=== PATIENT | male | born 1950 | race Caucasian/White ===

== ENCOUNTER → 2017-01-21 | Outpatient (CLI) | payer OTHER ==
[~2017-01-21] MED LIST: AMLO5CAP2 PO; ASPI81TA21 PO; CYAN10004 PO; GLC/500 PO; MCR125 PO; NAPR220T40 PO; OMEG-112 PO; OSTEO BI FLEX PO; PRAV20TA PO
[2017-01-21 11:03] LABS: BASO % 0.7 %; BASO ABS # 0.04 K/uL (0-0.2); COMPLETE YES; EOS % 4.2 %; HEMATOCRIT 44.7 % (42-52); IG% 0.2 %; LYMPH % 22.3 %; LYMPH ABS # 1.23 K/uL (1.2-3.4); MEAN CELL VOLUME 91.8 fL (80-100); MEAN CORPUSCULAR HEMOGLOBIN 31.4 pg (25-34); MEAN CORPUSCULAR HGB CONC 34.2 g/dl (32-36); MEAN PLATELET VOLUME 9.5 fL (7.4-10.4); MONO % 9.8 %; NEUT % 62.8 %; PLATELET COUNT 179 K/uL (130-400); RED BLOOD COUNT 4.87 M/uL (4.7-6.1); WHITE BLOOD COUNT 5.51 K/uL (4.8-10.8)
[2017-01-21 11:27] LABS: ALT/SGPT 27 U/L (12-78); AST/SGOT 17 U/L (15-37); BLOOD UREA NITROGEN 20 mg/dl (7-18); BUN/CREATININE RATIO 14.4 (10-20); CALCIUM 8.4 mg/dl (8.5-10.1); CARBON DIOXIDE 26 mmol/L (21-32); CHLORIDE 108 mmol/L (98-107); GLUCOSE 168 mg/dl (70-99); POTASSIUM 4.7 mmol/L (3.5-5.1); SODIUM 142 mmol/L (136-145)
[2017-01-21 11:28] LABS: ALB/GLOB RATIO 0.9 (0.9-2); ALKALINE PHOSPHATASE 57 U/L (45-117); CHOLESTEROL 136 mg/dl (0-200); CHOLESTEROL/HDL RATIO 3.4; HDL CHOLESTEROL 40 mg/dl; LDL CHOLESTEROL CALCULATED 69 mg/dl; TRIGLYCERIDES 134 mg/dl (0-150); VERY LOW DENSITY LIPOPROT CALC 27 mg/dl
[2017-01-21 12:00] LABS: ESTIMATED AVERAGE GLUCOSE 143 mg/dl; HA1C FLAG Normal (Normal)
--- NOTE | 2017-02-02 13:04 | CODING QUERY MEDICAL NECESSITY ---
SUPPORTING DIAGNOSIS NEEDED A supporting diagnosis is required for the test/procedure performed on this patient in order for us to be reimbursed by the patient's insurance. Please provide a supporting diagnosis for the following test/procedure listed below next to the test name along with your signature. *If there is no additional diagnosis for this patient that would support the following test/procedure please document that below next to the test/procedure. Test(s)/Procedure(s) that require a supporting diagnosis: * HEMOGLOBIN A1C DIAGNOSIS: Provider Signature: Date: Thank you Katrin Brennan [employer] Information Management Once completed, please kindly fax back to [phone] For questions please call [phone]
== END | disposition home or self-care (01) ==
LOC: C.LABBC 07:55
PROVIDERS: ATTEND Internal Medicine
DX: G47.33 Obstructive sleep apnea (adult) (pediatric) (principal); E11.9 Type 2 diabetes mellitus without complications

== ENCOUNTER → 2017-08-31 | Outpatient (CLI) | payer OTHER ==
[2017-08-31 12:25] LABS: BASO % 0.4 %; BASO ABS # 0.02 K/uL (0-0.2); EOS ABS # 0.09 K/uL (0-0.5); HEMATOCRIT 44.4 % (42-52); HEMOGLOBIN 15.6 g/dL (14.0-18.0); IG# 0.02 K/uL (0.00-0.02); LYMPH % 27.6 %; LYMPH ABS # 1.26 K/uL (1.2-3.4); MEAN CELL VOLUME 91.4 fL (80-100); MEAN CORPUSCULAR HEMOGLOBIN 32.1 pg (25-34); MEAN CORPUSCULAR HGB CONC 35.1 g/dl (32-36); MEAN PLATELET VOLUME 9.8 fL (7.4-10.4); MONO % 11.6 %; MONO ABS # 0.53 K/uL (0.11-0.59); NEUT ABS # 2.64 K/uL (1.4-6.5); PLATELET COUNT 171 K/uL (130-400); RED CELL DISTRIBUTION WIDTH CV 12.4 % (11.5-14.5); RED CELL DISTRIBUTION WIDTH SD 41.4 fL (36.4-46.3); WHITE BLOOD COUNT 4.56 K/uL (4.8-10.8)
[2017-08-31 12:33] LABS: HEMOGLOBIN A1C 7.8 % (4.5-5.6)
[2017-08-31 12:34] LABS: ALBUMIN 3.6 gm/dl (3.4-5.0); ALT/SGPT 30 U/L (12-78); BLOOD UREA NITROGEN 20 mg/dl (7-18); CALCIUM 8.8 mg/dl (8.5-10.1); CARBON DIOXIDE 27 mmol/L (21-32); CHOLESTEROL 106 mg/dl (0-200); CREATININE 1.32 mg/dl (0.60-1.40); GLUCOSE 191 mg/dl (70-99); POTASSIUM 4.3 mmol/L (3.5-5.1); SODIUM 138 mmol/L (136-145)
[2017-08-31 12:38] LABS: ALKALINE PHOSPHATASE 54 U/L (45-117); AST/SGOT 19 U/L (15-37); LDL CHOLESTEROL CALCULATED 54 mg/dl; TOTAL PROTEIN 7.6 gm/dl (6.4-8.2)
== END | disposition home or self-care (01) ==
LOC: C.LABPBG 09:32
PROVIDERS: ATTEND Internal Medicine
DX: G47.33 Obstructive sleep apnea (adult) (pediatric) (principal)

== ENCOUNTER → 2018-03-02 | Outpatient (CLI) | payer OTHER ==
[~2018-03-02] MED LIST changes: +ASPI-319 PO; -ASPI81TA21 PO
[2018-03-02 12:45] LABS: BASO % 0.7 %; BASO ABS # 0.04 K/uL (0-0.2); EOS % 1.7 %; HEMATOCRIT 45.1 % (42-52); HEMOGLOBIN 15.9 g/dL (14.0-18.0); IG# 0.02 K/uL (0.00-0.02); LYMPH ABS # 1.21 K/uL (1.2-3.4); MEAN CELL VOLUME 90.4 fL (80-100); MEAN CORPUSCULAR HEMOGLOBIN 31.9 pg (25-34); MEAN CORPUSCULAR HGB CONC 35.3 g/dl (32-36); MONO % 9.6 %; MONO ABS # 0.58 K/uL (0.11-0.59); NEUT % 67.7 %; NEUT ABS # 4.11 K/uL (1.4-6.5); PLATELET COUNT 184 K/uL (130-400); RED CELL DISTRIBUTION WIDTH CV 12.2 % (11.5-14.5); RED CELL DISTRIBUTION WIDTH SD 40.1 fL (36.4-46.3); WHITE BLOOD COUNT 6.06 K/uL (4.8-10.8)
[2018-03-02 13:06] LABS: ALKALINE PHOSPHATASE 66 U/L (45-117); ALT/SGPT 29 U/L (12-78); AST/SGOT 20 U/L (15-37); BLOOD UREA NITROGEN 24 mg/dl (7-18); CALCIUM 9.1 mg/dl (8.5-10.1); CARBON DIOXIDE 30 mmol/L (21-32); CHOLESTEROL 147 mg/dl (0-200); CREATININE 1.39 mg/dl (0.60-1.40); GLUCOSE 279 mg/dl (70-99); HEMOGLOBIN A1C 9.5 % (4.5-5.6); LDL CHOLESTEROL CALCULATED 70 mg/dl; POTASSIUM 4.6 mmol/L (3.5-5.1); SODIUM 133 mmol/L (136-145); TOTAL PROTEIN 8.1 gm/dl (6.4-8.2)
== END | disposition home or self-care (01) ==
LOC: C.LABPBG 09:47
PROVIDERS: ATTEND Internal Medicine
DX: I10 Essential (primary) hypertension (principal); E11.69 Type 2 diabetes mellitus with other specified complication; E78.5 Hyperlipidemia, unspecified

== ENCOUNTER 2018-10-21 19:51 | Inpatient (IN) ==
[2018-10-21] MEDS ORDERED: SODIUM CHLORIDE 0.9% 1000ML 1,000 ML IV ONE (21:38)
--- NOTE | 2018-10-21 21:54 | Emergency Department Note ---
History of Present Illness General Chief complaint: Constipation Stated complaint: CONSTIPATOIN History of Present Illness Maximum Pain Intensity: 2 This 68-year-old presents to the ER complaining of weakness, lightheadedness, and abdominal discomfort Location: Generalized Quality: Weak Severity: Moderate Duration: 1 week Timin week ago Context: Patient was concerned and came in Modifying factors: better with rest; worse with activity Patient has pancreatic cancer currently on chemotherapy once a week for 3 weeks and 1 week off. He last received chemo on Thursday. Dr. Combs is his oncologist. Patient was diagnosed yesterday with a DVT in the left leg and was started on Xarelto. Patient states he was told he had a high potassium last week. Patient also complains of being constipated with abdominal pain. No prior abdominal surgeries. Patient denies chest pain, dyspnea, fevers, vomiting, diarrhea. Patient states he feels quite weak and lightheaded. His blood pressure normally is 110/70 per patient. No history of PE. No prior heart disease. Home Medications Home Medications Medication Instructions Recorded Confirmed Type amlodipine-benazepril 1 cap PO QAM 04/20/18 10/21/18 History cyanocobalamin (vitamin B-12) 1,000 mcg PO QAM 07/14/18 10/21/18 History [Vitamin B-12] Basaglar KwikPen U-100 Insulin 8 units SUBCUT HS 07/20/18 10/21/18 History insulin aspart U-100 [Novolog 0 unit SUBCUT TIDM PRN 07/22/18 10/21/18 History Flexpen U-100 Insulin] aspirin [Aspir-81] 81 mg PO QAM 08/29/18 10/21/18 History docusate sodium [Colace] 100 mg PO QAM 08/29/18 10/21/18 History ondansetron HCl [Zofran] 8 mg PO QAM 08/29/18 10/21/18 History oxycodone 10 mg PO Q4 PRN 08/29/18 10/21/18 History prochlorperazine maleate 10 mg PO Q6H PRN 08/29/18 10/21/18 History [Compazine] rivaroxaban [Xarelto] 15 mg PO BID 10/21/18 10/21/18 History rivaroxaban [Xarelto] 20 mg PO DAILY 10/21/18 10/21/18 History Allergies Allergy/AdvReac Type Severity Reaction Status Date / Time No Known Allergies Allergy Verified 10/21/18 21:22 Past Med/Surg History Medical History Constipation Acute kidney injury Hyperglycemia due to type 2 diabetes mellitus Hospital-acquired pneumonia Abdominal pain Sepsis (Acute) Leukocytosis (Acute) Lactic acidosis (Acute) DVT prophylaxis Diabetes mellitus HTN (hypertension) Pancreatic cancer Common bile duct obstruction secondary to biliary stent Colon cancer screening Elevated LFTs Epigastric abdominal pain DVT prophylaxis Choledocholithiasis (Acute) Epigastric abdominal pain (Acute) Encounter for pre-operative examination Corneal abrasion of both eyes Acute pancreatitis Pancreatic cancer metastasized to liver Hyperlipidemia Essential hypertension DM w/o complication type II GRICELDA (obstructive sleep apnea) Acute urinary retention (Inactive) Constipation (Inactive) Dysphagia (Inactive) Epigastric abdominal pain (Inactive) Hypoglycemia (Inactive) Neutropenia (Inactive) Pancreatic cancer (Inactive) Basal cell carcinoma (BCC) of forehead S/P EXCISION Constipation Diabetes mellitus, type 2 History of pancreatitis RECENT; 07/2018 FELT 2/2 CBD/PANCREATIC DUCT STRICTURES PER [facility] NOTE- SURGEON AWARE Hyperlipidemia Hypertension Osteoarthritis Pancreatic cancer WITH LIVER METS Peripheral neuropathy left leg -sore to touch; no difficulty walking Sleep apnea CPAP 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 S/P MOHS PROCEDURE Surgical History H/O Moh's micrographic surgery for skin cancer H/O carpal tunnel repair B/L History of ERCP ERCP WITH BILIARY STENT PLACEMENT/EUS/SPHINCTEROTOMY= 07/14/18= GRADE VIEW 1, MAC 3, ETT 7.5 AT [facility] History of colonoscopy History of tonsillectomy History of tooth extraction WISDOM TEETH Family History Mother Gastric cancer Brother Gastric cancer Social History Preferred Language: [place] Communication Ability: Effective 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 Beliefs That Will Affect Care: None marital status: Current Living Situation: Spouse Current Living Situation Comment: House current occupational status: retired 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[employer], was also previously in the [employer] Other Information That Helps Us Care for You: No Feels Safe at Home: Yes Safety Concerns: Feels Safe At This Time Smoking Status: Never smoker Hx Alcohol Use: No Hx Substance Use: No Review of Systems All systems reviewed & are unremarkable except as noted in HPI & below Physical Exam Vital Signs Vital Signs - 24 hr 10/21/18 20:11 10/21/18 23:19 10/22/18 00:34 Temperature 37.3 C Temperature Source Oral Sepsis Recent Fever Within 48 Hours No Sepsis Action Taken by Nursing No Action Required Pulse Rate 113 H Pulse Rate [Left Radial] 99 H 90 Pulse Rhythm [Left Radial] Pulse Strength [Left Radial] Respiratory Rate 18 18 18 Respiratory Effort / Characteristics Non-Labored Spontaneous Respiratory Depth Normal Respiratory Pattern Blood Pressure 91/56 L Blood Pressure [Left Arm] 104/60 117/59 L Blood Pressure Mean 67 Blood Pressure Mean [Left Arm] 74 78 Blood Pressure Position [Left Arm] Lying Pulse Oximetry 97 95 Oxygen Delivery Method Room Air 10/22/18 02:54 Temperature 36.5 C Temperature Source Oral Sepsis Recent Fever Within 48 Hours Sepsis Action Taken by Nursing Pulse Rate Pulse Rate [Left Radial] 95 H Pulse Rhythm [Left Radial] Regular Pulse Strength [Left Radial] Normal Respiratory Rate 18 Respiratory Effort / Characteristics Non-Labored Spontaneous Respiratory Depth Normal Respiratory Pattern Regular Blood Pressure Blood Pressure [Left Arm] 118/71 Blood Pressure Mean Blood Pressure Mean [Left Arm] 86 Blood Pressure Position [Left Arm] Lying Pulse Oximetry 95 Oxygen Delivery Method Room Air CPAP VITALS: Vitals are noted on the nurse's note and reviewed by myself. Vital signs hypotensive and tachycardic. GENERAL: Elderly male weak appearing, in mild acute distress, nondiaphoretic, well-developed well-nourished. SKIN: The skin was without rashes, erythema, or bruising. Left calf slightly edematous. There is no tenting of the skin. Capillary reflex less than 2 seconds. HEAD: Normocephalic atraumatic. EARS: External auditory canals clear, tympanic membranes pearly matt without erythema or effusion bilaterally. EYES: Pupils equal round and reactive to light and accommodation. Conjunctivae without injection, sclerae without icterus. Extraocular movements intact. NOSE: Patent, turbinates without inflammation or discharge. No sinus tenderness. MOUTH: Mucous membranes mildly dry. Pharynx without erythema or exudate. Uvula midline. Airway patent. Tongue does not deviate. NECK: Supple without nuchal rigidity. No lymphadenopathy. No thyromegaly. Cervical spine is nontender. No JVD. HEART: Regular rate and rhythm LUNGS: Clear to auscultation bilaterally without wheezes, rales or rhonchi. No retractions or accessory muscle use. ABDOMEN: Positive bowel sounds x 4. Normal tympanic percussion. Soft, tender to palpation lower abdomen, without masses or organomegaly. Fields sign negati ve. No guarding or rebound tenderness. No CVA tenderness MUSCULOSKELETAL: No muscle atrophy, erythema noted. left calf slightly edematous. Pedal pulses +2 equal and present bilaterally. NEURO: Patient was alert and oriented to person place and time. Normal sensation to light and sharp touch. No focal neurological deficits. Course Administered Medications Sodium Chloride (Nss 1000ml) 1,000 mls @ 80 mls/hr IV .[id number] VALERIA Stop: 11/21/18 02:59 Last Admin: 10/22/18 02:51 Dose: 80 mls/hr Documented by: [id number] Discontinued Medications Sodium Chloride (Nss 1000ml) 1,000 mls @ 999 mls/hr IV .[id number] ONE Stop: 10/21/18 22:38 Last Infusion: 10/21/18 23:14 Dose: 0 mls/hr Documented by: [id number] Admin: 10/21/18 21:59 Dose: 999 mls/hr Documented by: [id number] Ioversol (Optiray 320 100ml) 90 ml IV ONCE PRN PRN Reason: Interaction Checking Stop: 10/25/18 22:15 Last Admin: 10/21/18 22:17 Dose: 90 ml Documented by: [id number] Medical Decision Making Medical Records Attestation: I reviewed the patient's medical records. Home Medications Current Medication List: was personally reviewed by me Laboratory Data Attestation: I reviewed the patient's lab results. Result diagrams: 10/21/18 21:57 10/22/18 02:59 Lab Results 10/21/18 10/21/18 10/21/18 Range/Units 21:46 21:50 21:57 WBC 4.17 L (4.8-10.8) K/uL RBC 2.89 L (4.7-6.1) M/uL Hgb 9.0 L (14.0-18.0) g/dL POC Hgb 9.2 L (14.0-18.0) g/dl Hct 26.8 L (42-52) % POC Hct 27 L (42-52) % MCV 92.7 (80-100) fL MCH 31.1 (25-34) pg MCHC 33.6 (32-36) g/dL RDW Std Deviation 53.8 H (36.4-46.3) fL RDW Coeff of Darron 16.1 H (11.5-14.5) % Plt Count 152 (130-400) K/uL MPV 9.0 (7.4-10.4) fL Immature Gran % (Auto) 1.7 % Neut % (Auto) 91.1 % Lymph % (Auto) 6.0 % [place] % (Auto) 1.2 % Eos % (Auto) 0.0 % Baso % (Auto) 0.0 % Immature Gran # (Auto) 0.07 H (0.00-0.02) K/uL Neut # (Auto) 3.80 (1.4-6.5) K/uL Lymph # (Auto) 0.25 L (1.2-3.4) K/uL [place] # (Auto) 0.05 L (0.11-0.59) K/uL Eos # (Auto) 0.00 (0-0.5) K/uL Baso # (Auto) 0.00 (0-0.2) K/uL PT (9.0-12.0) Seconds INR (0.9-1.1) APTT (21.0-31.0) Seconds PTT Ratio POC Sodium 134 L (135-144) mEq/L Sodium (136-145) mmol/L POC Potassium 5.0 (3.3-5.0) mEq/L Potassium (3.5-5.1) mmol/L POC Chloride 98 L (101-112) mEq/L Chloride (98-107) mmol/L Carbon Dioxide (21-32) mmol/L POC Total CO2 25 (24-31) mEq/l Anion Gap (3-11) POC Anion Gap 17.0 (16-25) mmol/L POC BUN 40 H (7-18) mg/dl BUN (7-18) mg/dl Creatinine (0.6-1.4) mg/dl POC Creatinine 1.3 (0.6-1.3) mg/dl Est Cr Clr Drug Dosing ml/min Est GFR ( Amer) Est GFR (Non-Af Amer) BUN/Creatinine Ratio (10-20) Glucose (70-99) mg/dl POC Glucose (70-99) POC Glucose (other) 240 H (70-99) mg/dl POC Lactic Acid Saurabh 1.77 H (0.90-1.70) mmol/L Calcium (8.5-10.1) mg/dl POC Ioniz Calcium Anuja 1.10 L (1.12-1.32) mmol/l Phosphorus (2.5-4.9) mg/dl Magnesium (1.8-2.4) mg/dl Total Bilirubin (0.2-1) mg/dl AST (15-37) U/L ALT (12-78) U/L Alkaline Phosphatase (45-117) U/L POC Troponin I (0-0.045) ng/ml Troponin I (0-0.045) ng/ml Total Protein (6.4-8.2) gm/dl Albumin (3.4-5.0) gm/dl Globulin (2.5-4.0) gm/dl Albumin/Globulin Ratio (0.9-2) Urine Color Urine Appearance (Clear) Urine pH (4.5-7.5) Ur Specific [place] (1.000-1.030) Urine Protein (Negative) Urine Glucose (UA) (Negative) Urine Ketones (Negative) Urine Blood (Negative) Urine Nitrite (Negative) Urine Bilirubin (Negative) Urine Urobilinogen (Negative) Ur Leukocyte Esterase (Negative) Urine WBC (Auto) (0-5) /hpf Urine RBC (Auto) (0-4) /hpf U Hyaline Cast (Auto) (0-5) /lpf U Epithel Cells (Auto) (0-5) /lpf Urine Bacteria (Auto) (Negative) 10/21/18 10/21/18 10/21/18 Range/Units 21:57 21:57 22:01 WBC (4.8-10.8) K/uL RBC (4.7-6.1) M/uL Hgb (14.0-18.0) g/dL POC Hgb (14.0-18.0) g/dl Hct (42-52) % POC Hct (42-52) % MCV (80-100) fL MCH (25-34) pg MCHC (32-36) g/dL RDW Std Deviation (36.4-46.3) fL RDW Coeff of Darron (11.5-14.5) % Plt Count (130-400) K/uL MPV (7.4-10.4) fL Immature Gran % (Auto) % Neut % (Auto) % Lymph % (Auto) % [place] % (Auto) % Eos % (Auto) % Baso % (Auto) % Immature Gran # (Auto) (0.00-0.02) K/uL Neut # (Auto) (1.4-6.5) K/uL Lymph # (Auto) (1.2-3.4) K/uL [place] # (Auto) (0.11-0.59) K/uL Eos # (Auto) (0-0.5) K/uL Baso # (Auto) (0-0.2) K/uL PT 13.2 H (9.0-12.0) Seconds INR 1.3 H (0.9-1.1) APTT 35.3 H (21.0-31.0) Seconds PTT Ratio 1.3 POC Sodium (135-144) mEq/L Sodium 137 (136-145) mmol/L POC Potassium (3.3-5.0) mEq/L Potassium 5.0 (3.5-5.1) mmol/L POC Chloride (101-112) mEq/L Chloride 102 (98-107) mmol/L Carbon Dioxide 29 (21-32) mmol/L POC Total CO2 (24-31) mEq/l Anion Gap 6.0 (3-11) POC Anion Gap (16-25) mmol/L POC BUN (7-18) mg/dl BUN 47 H (7-18) mg/dl Creatinine 1.43 H (0.6-1.4) mg/dl POC Creatinine (0.6-1.3) mg/dl Est Cr Clr Drug Dosing 44.9 ml/min Est GFR ( Amer) 57.1 Est GFR (Non-Af Amer) 49.3 BUN/Creatinine Ratio 32.7 H (10-20) Glucose 232 H (70-99) mg/dl POC Glucose (70-99) POC Glucose (other) (70-99) mg/dl POC Lactic Acid Saurabh (0.90-1.70) mmol/L Calcium 8.3 L (8.5-10.1) mg/dl POC Ioniz Calcium Anuja (1.12-1.32) mmol/l Phosphorus (2.5-4.9) mg/dl Magnesium (1.8-2.4) mg/dl Total Bilirubin 0.6 (0.2-1) mg/dl AST 12 L (15-37) U/L ALT 20 (12-78) U/L Alkaline Phosphatase 75 (45-117) U/L POC Troponin I < 0.03 (0-0.045) ng/ml Troponin I < 0.015 (0-0.045) ng/ml Total Protein 6.5 (6.4-8.2) gm/dl Albumin 2.4 L (3.4-5.0) gm/dl Globulin 4.1 H (2.5-4.0) gm/dl Albumin/Globulin Ratio 0.6 L (0.9-2) Urine Color Urine Appearance (Clear) Urine pH (4.5-7.5) Ur Specific [place] (1.000-1.030) Urine Protein (Negative) Urine Glucose (UA) (Negative) Urine Ketones (Negative) Urine Blood (Negative) Urine Nitrite (Negative) Urine Bilirubin (Negative) Urine Urobilinogen (Negative) Ur Leukocyte Esterase (Negative) Urine WBC (Auto) (0-5) /hpf Urine RBC (Auto) (0-4) /hpf U Hyaline Cast (Auto) (0-5) /lpf U Epithel Cells (Auto) (0-5) /lpf Urine Bacteria (Auto) (Negative) 10/21/18 10/22/18 10/22/18 Range/Units 23:01 02:59 03:15 WBC (4.8-10.8) K/uL RBC (4.7-6.1) M/uL Hgb (14.0-18.0) g/dL POC Hgb (14.0-18.0) g/dl Hct (42-52) % POC Hct (42-52) % MCV (80-100) fL MCH (25-34) pg MCHC (32-36) g/dL RDW Std Deviation (36.4-46.3) fL RDW Coeff of Darron (11.5-14.5) % Plt Count (130-400) K/uL MPV (7.4-10.4) fL Immature Gran % (Auto) % Neut % (Auto) % Lymph % (Auto) % [place] % (Auto) % Eos % (Auto) % Baso % (Auto) % Immature Gran # (Auto) (0.00-0.02) K/uL Neut # (Auto) (1.4-6.5) K/uL Lymph # (Auto) (1.2-3.4) K/uL [place] # (Auto) (0.11-0.59) K/uL Eos # (Auto) (0-0.5) K/uL Baso # (Auto) (0-0.2) K/uL PT (9.0-12.0) Seconds INR (0.9-1.1) APTT (21.0-31.0) Seconds PTT Ratio POC Sodium (135-144) mEq/L Sodium 136 (136-145) mmol/L POC Potassium (3.3-5.0) mEq/L Potassium 4.7 (3.5-5.1) mmol/L POC Chloride (101-112) mEq/L Chloride 104 (98-107) mmol/L Carbon Dioxide 26 (21-32) mmol/L POC Total CO2 (24-31) mEq/l Anion Gap 6.0 (3-11) POC Anion Gap (16-25) mmol/L POC BUN (7-18) mg/dl BUN 40 H (7-18) mg/dl Creatinine 1.12 D (0.6-1.4) mg/dl POC Creatinine (0.6-1.3) mg/dl Est Cr Clr Drug Dosing 57.4 ml/min Est GFR ( Amer) 76.7 Est GFR (Non-Af Amer) 66.2 BUN/Creatinine Ratio 35.8 H (10-20) Glucose 277 H (70-99) mg/dl POC Glucose 321 H (70-99) POC Glucose (other) (70-99) mg/dl POC Lactic Acid Saurabh (0.90-1.70) mmol/L Calcium 7.3 L (8.5-10.1) mg/dl POC Ioniz Calcium Anuja (1.12-1.32) mmol/l Phosphorus 3.5 (2.5-4.9) mg/dl Magnesium 2.2 (1.8-2.4) mg/dl Total Bilirubin (0.2-1) mg/dl AST (15-37) U/L ALT (12-78) U/L Alkaline Phosphatase (45-117) U/L POC Troponin I (0-0.045) ng/ml Troponin I (0-0.045) ng/ml Total Protein (6.4-8.2) gm/dl Albumin (3.4-5.0) gm/dl Globulin (2.5-4.0) gm/dl Albumin/Globulin Ratio (0.9-2) Urine Color Yellow Urine Appearance Clear (Clear) Urine pH 5.0 (4.5-7.5) Ur Specific [place] 1.019 (1.000-1.030) Urine Protein Negative (Negative) Urine Glucose (UA) 1+ H (Negative) Urine Ketones Negative (Negative) Urine Blood 1+ H (Negative) Urine Nitrite Negative (Negative) Urine Bilirubin Negative (Negative) Urine Urobilinogen Negative (Negative) Ur Leukocyte Esterase Negative (Negative) Urine WBC (Auto) 0 (0-5) /hpf Urine RBC (Auto) 0-4 (0-4) /hpf U Hyaline Cast (Auto) 1-5 (0-5) /lpf U Epithel Cells (Auto) 5-10 H (0-5) /lpf Urine Bacteria (Auto) Negative (Negative) Imaging Data Attestation: I personally reviewed and interpreted this imaging study as follows: Blood Pressure Blood Pressure Findings: Low blood pressure MDM Narrative Prior records/ancillary studies reviewed and summarized above. Nursing notes reviewed. Additional history obtained from family The patient's history was concerning for weakness, lightheadedness, abdominal pain. Differential diagnosis: Etiologies such as metabolic, infection, hypo/hyperglycemia, electrolyte abnormalities, cardiac sources, intracerebral event, toxicologic, neurologic, as well as others were entertained. Physical examination: As above. ER treatment provided: IV Lock x2 was immediately initiated IV fluids, 1 L bolus. Blood pressure did improve On reassessment the patient felt better. Diagnostics interpretation by me: ECG: Normal sinus, incomplete right bundle branch block, no acute ST-T wave changes, rate of 100. impression incomplete right bundle branch block interpreted by myself. I think arrhythmia is unlikely. EKG shows normal sinus rhythm with no interval abnormalities such as QT prolongation or WPW. There are no findings to suggest Brugada syndrome. Cardiac monitoring in the emergency department reveals no tachycardic or bradycardic dysrhythmia. Hypertrophic cardiomyopathy was cons idered but there are no clear historical elements pointing toward this. EKG is not suggestive. The QRS voltage is not extremely large and there are no suggestive Q waves. The labs revealed negative urine Anemia. Stable creatinine. Hyperglycemia. Elevated lactic. Imaging studies: CT SCAN OF THE ABDOMEN AND PELVIS WITH IV CONTRAST CLINICAL HISTORY: Generalized abdominal pain. Pancreatic cancer. COMPARISON STUDY: Abdominal CT dated 07/22/2018. TECHNIQUE: Following the IV administration of 90 cc of Optiray 320, CT scan of the abdomen and pelvis is performed from the lung bases to the proximal femora. Images are reviewed in the axial, sagittal, and coronal planes. IV contrast was administered without complication. A dose lowering technique was utilized adhering to the principles of ALARA. CT DOSE: 500.99 mGy.cm FINDINGS: Lung bases: The tip of a central venous infusion port terminates at the cavoatrial junction. The heart is normal in size and without pericardial effu magi. The coronary arteries are densely calcified. There is a small hiatal hernia. There is no airspace consolidation or pleural effusion. Bibasilar scarring/atelectasis is noted. There are scattered calcified granulomas. Small calcified pleural plaques are noted. Liver: The contrast-enhanced liver is normal in size, contour, and attenuation. There is minimal central intrahepatic biliary ductal dilatation and pneumobilia. The hepatic veins and portal veins are patent. A 1.3 cm low-attenuation lesion is again seen in segment Aletha on image #51, and a lesion in segment IVb is seen on image #95 measuring 1.8 cm. No new hepatic lesion is clearly seen. There are scattered calcified hepatic granulomas. Gallbladder: The gallbladder is mildly distended. The gallbladder wall is mildly thickened and hyperemic. Intraluminal gas is noted and there is mild stranding identified around the hepatic hilum. A stent in the common bile duct contains intraluminal gas and is presumed patent. Spleen: Normal in size and attenuation. There are numerous calcified splenic granulomas. 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 Pancreas: The pancreas is markedly atrophic. The pancreatic duct is dilated, measuring up to 7 mm in the pancreatic tail. Scattered subcentimeter cystic foci are again noted and likely represent tiny sidebranch IPMN's. The pancreatic head is heterogeneous. No well delineated mass lesion is seen. Adrenal glands: Unremarkable. Kidneys: The contrast enhanced kidneys are atrophic. There is moderate to severe bilateral hydronephrosis, likely related to marked bladder distention. 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 The kidneys enhance symmetrically. A circumaortic left renal vein is incidentally noted. Nonobstructing calculi are seen in the lower pole of the right kidney. Cortical hypodensities measuring up to 11 mm likely represent cysts but are too small for definitive characterization. Foci of cortical scarring are seen in the right lower pole. Abdominal vasculature: The abdominal aorta is normal in course and caliber noting advanced atherosclerotic calcification. Bowel: There is colonic fecal retention. No bowel obstruction is seen. The appendix is well-visualized and normal. Peritoneum: There is no intraperitoneal free air or abdominal ascites. Lymphadenopathy: None. Pelvic viscera: The bladder is markedly distended, measuring 26 cm in length but otherwise grossly unremarkable. The prostate gland is diminutive. Skeletal structures: The skeletal structures are osteopenic. Lumbosacral spondylosis is observed. No lytic or blastic lesions are seen. IMPRESSION: 1. The bladder is markedly distended, measuring over 26 cm in length. The appear ance indicates bladder obstruction. 2. There is moderate to severe bilateral hydroureteronephrosis, likely related to the markedly distended bladder. 3. A common bile duct stent is in place. Gas within the stent and pneumobilia indicates patency of the stent. 4. The gallbladder is distended and contains intraluminal gas. The gallbladder wall appears mildly thickened and hyperemic and there is mild stranding around the gallbladder and in the hepatic hilum. These findings are likely related to the presence of the common bile duct stent. Acute cholecystitis is considered less likely and clinical correlation will be required. 5. The pancreas is atrophic. There is significant heterogeneity of the pancreatic head, with no well delineated mass lesion seen. 6. There are 2 low attenuation hepatic lesions, similar to previous. These are pathologically indeterminant and metastatic deposits are not excluded. 7. Right-sided nephrolithiasis. 8. Additional findings as above. Electronically signed by: Pritesh Mercado M.D. Consultation: A consultation was placed with the hospitalist. The case was discussed and diagnostics were reviewed. The patient was evaluated in the ER for further t reatment. Exam and history seem consistent with hypotension with urinary retention. Ugarte was placed and patient felt much better. Urine was sent. Patient is agreeable treatment plan of admission. Patient's blood pressure did improve with hydration. He was reassessed multiple times. He had great improvement. Lactic acid was marginally elevated. No leukocytosis. Chronic anemia. By the evaluation outlined above emergent etiologies such as infection, electrolyte abnormalities, cardiac sources, intracerebral event, toxologic, neurologic, metabolic, as well as others were deemed relatively unlikely. The pt informed about the findings as listed above. All questions were answered and pleased with the treatment. Case reviewed with my attending The chart was completed utilizing [employer] Speech voice recognition software. Grammatical errors, random word insertions, pronoun errors, and incomplete sentences are an occassional consequence of this system due to software li mitations, ambient noise, and hardware issues. Any formal questions or concerns about the content, text, or information contained within the body of this dictation should be directly addressed to the physician casino assistant manager for clarification. Impression & Plan Acute hypotension, Acute urinary retention, Acute hyperglycemia Discharge Plan Visit Data *Final* Discharge Date/Time: 10/22/18 02:23 Chief Complaint: Constipation Stated Complaint: CONSTIPATOIN ED Provider: Aly Mullins ED Midlevel Provider: Ana María Adame Discharge Problem: Acute hypotension, Acute urinary retention, Acute hyperglycemia Patient Disposition: Admitted As Inpatient Condition: Fair Discharge Instructions Interventions: ED Discharge Assessment Last Done: 10/22/18 02:23
[2018-10-21 22:04] LABS: iSTAT Creatinine 1.3 mg/dl (0.6-1.3); iSTAT Hemoglobin 9.2 g/dl (14.0-18.0); iSTAT Ionized Calcium 1.1 mmol/l (1.12-1.32)
[2018-10-21 22:05] LABS: Hematocrit (blood only) 26.8 % (42-52); Immature Granulocytes # (auto) 0.07 K/uL (0.00-0.02); Immature Granulocytes % (auto) 1.7 %; Lymphocytes # (auto) 0.25 K/uL (1.2-3.4); Mean Corpuscular Hgb Conc 33.6 g/dL (32-36); Mean Corpuscular Volume 92.7 fL (80-100); Monocytes # (auto) 0.05 K/uL (0.11-0.59); Monocytes % (auto) 1.2 %; Neutrophils % (auto) 91.1 %; Platelet Count 152 K/uL (130-400); RDW Coefficient of Variation 16.1 % (11.5-14.5); RDW Standard Deviation 53.8 fL (36.4-46.3); Red Blood Count 2.89 M/uL (4.7-6.1); White Blood Count 4.17 K/uL (4.8-10.8)
[2018-10-21] MEDS ORDERED: IOVERSOL 100ml IV PRN (22:16)
[2018-10-21 22:21] LABS: Alanine Aminotransferase 20 U/L (12-78); Albumin Level 2.4 gm/dl (3.4-5.0); Aspartate Aminotransferase 12 U/L (15-37); BUN Creatinine Ratio 32.7 (10-20); Blood Urea Nitrogen 47 mg/dl (7-18); Calcium 8.3 mg/dl (8.5-10.1); Carbon Dioxide 29 mmol/L (21-32); Chloride 102 mmol/L (98-107); Creatinine Clr Calc Pharmacy 44.9 ml/min; Est GFR (African American) 57.1; Est GFR (Non-African American) 49.3; Glucose 232 mg/dl (70-99); Sodium 137 mmol/L (136-145)
--- NOTE | 2018-10-21 22:23 | XRay Report ---
SINGLE VIEW CHEST CLINICAL HISTORY: Sepsis. FINDINGS: An AP, portable, upright chest radiograph is compared to study dated 09/30/2018 and correlat ed with chest CT dated 07/16/2018. The examination is degraded by portable technique and patient rotat ion. A right-sided central venous infusion port is unchanged in position. The cardiomediastinal silho uette is unremarkable, noting atherosclerotic calcification of the thoracic aorta. There is bibasilar scarring/atelectasis. No airspace consolidation or large pleural effusion is identified. No pneumoth orax is seen. The skeletal structures are osteopenic. The bony thorax is grossly intact. IMPRESSION: No active disease in the chest. Electronically signed by: Pritesh Mercado M.D. 10/21/2018 10:22 PM
[2018-10-21 22:25] LABS: Albumin Globulin Ratio 0.6 (0.9-2); Alkaline Phosphatase 75 U/L (45-117); Bilirubin,Total 0.6 mg/dl (0.2-1); Globulin 4.1 gm/dl (2.5-4.0); Total Protein 6.5 gm/dl (6.4-8.2); Troponin I < 0.015 ng/ml (0-0.045)
[2018-10-21 22:27] LABS: INR 1.3 (0.9-1.1); Partial Thromboplastin Ratio 1.3; Partial Thromboplastin Time 35.3 Seconds (21.0-31.0); Prothrombin Time 13.2 Seconds (9.0-12.0)
--- NOTE | 2018-10-21 22:41 | CT Scan Report ---
CT SCAN OF THE ABDOMEN AND PELVIS WITH IV CONTRAST CLINICAL HISTORY: Generalized abdominal pain. Pancreatic cancer. COMPARISON STUDY: Abdominal CT dated 07/22/2018. TECHNIQUE: Following the IV administration of 90 cc of Optiray 320, CT scan of the abdomen and pelvi s is performed from the lung bases to the proximal femora. Images are reviewed in the axial, sagittal , and coronal planes. IV contrast was administered without complication. A dose lowering technique wa s utilized adhering to the principles of ALARA. CT DOSE: 500.99 mGy.cm FINDINGS: Lung bases: The tip of a central venous infusion port terminates at the cavoatrial junction. The hear t is normal in size and without pericardial effusion. The coronary arteries are densely calcified. Th ere is a small hiatal hernia. There is no airspace consolidation or pleural effusion. Bibasilar scarr ing/atelectasis is noted. There are scattered calcified granulomas. Small calcified pleural plaques a re noted. Liver: The contrast-enhanced liver is normal in size, contour, and attenuation. There is minimal cent ral intrahepatic biliary ductal dilatation and pneumobilia. The hepatic veins and portal veins are pa tent. A 1.3 cm low-attenuation lesion is again seen in segment Aletha on image #51, and a lesion in segm ent IVb is seen on image #95 measuring 1.8 cm. No new hepatic lesion is clearly seen. There are scatt ered calcified hepatic granulomas. Gallbladder: The gallbladder is mildly distended. The gallbladder wall is mildly thickened and hypere mart. Intraluminal gas is noted and there is mild stranding identified around the hepatic hilum. A minh nt in the common bile duct contains intraluminal gas and is presumed patent. Spleen: Normal in size and attenuation. There are numerous calcified splenic granulomas. 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 Pancreas: The pancreas is markedly atrophic. The pancreatic duct is dilated, measuring up to 7 mm in the pancreatic tail. Scattered subcentimeter cystic foci are again noted and likely represent tiny si debranch IPMN's. The pancreatic head is heterogeneous. No well delineated mass lesion is seen. Adrenal glands: Unremarkable. Kidneys: The contrast enhanced kidneys are atrophic. There is moderate to severe bilateral hydronephr osis, likely related to marked bladder distention. 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 The kidneys enhance symmetrically. A circumaort ic left renal vein is incidentally noted. Nonobstructing calculi are seen in the lower pole of the ri ght kidney. Cortical hypodensities measuring up to 11 mm likely represent cysts but are too small for definitive characterization. Foci of cortical scarring are seen in the right lower pole. Abdominal vasculature: The abdominal aorta is normal in course and caliber noting advanced atheroscle rotic calcification. Bowel: There is colonic fecal retention. No bowel obstruction is seen. The appendix is well-visualiz ed and normal. Peritoneum: There is no intraperitoneal free air or abdominal ascites. Lymphadenopathy: None. Pelvic viscera: The bladder is markedly distended, measuring 26 cm in length but otherwise grossly un remarkable. The prostate gland is diminutive. Skeletal structures: The skeletal structures are osteopenic. Lumbosacral spondylosis is observed. No lytic or blastic lesions are seen. IMPRESSION: 1. The bladder is markedly distended, measuring over 26 cm in length. The appearance indicates bladde r obstruction. 2. There is moderate to severe bilateral hydroureteronephrosis, likely related to the markedly disten ded bladder. 3. A common bile duct stent is in place. Gas within the stent and pneumobilia indicates patency of th e stent. 4. The gallbladder is distended and contains intraluminal gas. The gallbladder wall appears mildly th ickened and hyperemic and there is mild stranding around the gallbladder and in the hepatic hilum. Th heather findings are likely related to the presence of the common bile duct stent. Acute cholecystitis is considered less likely and clinical correlation will be required. 5. The pancreas is atrophic. There is significant heterogeneity of the pancreatic head, with no well delineated mass lesion seen. 6. There are 2 low attenuation hepatic lesions, similar to previous. These are pathologically indeter minant and metastatic deposits are not excluded. 7. Right-sided nephrolithiasis. 8. Additional findings as above. Electronically signed by: Pritesh Mercado M.D. 10/21/2018 10:39 PM
[2018-10-21 23:35] LABS: Appearance Urine Clear (Clear); Bacteria Urine Automated Negative (Negative); Bilirubin Urine Negative (Negative); Blood Urine 1+ (Negative); Color Urine Yellow; Glucose Urine UA 1+ (Negative); Ketones Urine Negative (Negative); Leukocyte Esterase Urine Negative (Negative); Nitrite Urine Negative (Negative); Protein Urine Negative (Negative); RBC Urine Automated 0-4 /hpf (0-4); Specific Gravity Urine 1.019 (1.000-1.030); Urobilinogen Urine Negative (Negative); WBC Urine Automated 0 /hpf (0-5)
--- NOTE | 2018-10-21 23:49 | Emergency Department Note ---
ED Visit Note The patient was seen and examined with Nhi Adame PA-C. I agree with the history, physical and findings. Please see the note for disposition and details. .
[2018-10-22] MEDS ORDERED: PROCHLORPERAZINE MALEATE 10 MG TAB PO PRN (02:47)
[2018-10-22] MEDS ORDERED: GLUCOSE 10 TABS/TUBE PO PRN (02:47)
[2018-10-22] MEDS ORDERED: BISACODYL 10 MG SUPP PR PRN (02:47)
[2018-10-22] MEDS ORDERED: GLUCOSE 40% GEL 15 GM TUBE PO PRN (02:47)
[2018-10-22] MEDS ORDERED: CARBOHYDRATES FOR HYPOGLYCEMIA PO PRN (02:47)
[2018-10-22] MEDS ORDERED: DEXTROSE 50% 50 ML SYRINGE IV PRN (02:47)
[2018-10-22] MEDS ORDERED: GLUCAGON FOR INJ 1 MG VIAL SQ PRN (02:47)
[2018-10-22] MEDS: SODIUM CHLORIDE 0.9% 1000ML 1,000 ML IV SCH ×2 (02:51→14:57)
[2018-10-22 03:35] LABS: BUN Creatinine Ratio 35.8 (10-20); Calcium 7.3 mg/dl (8.5-10.1); Creatinine Clr Calc Pharmacy 57.4 ml/min; Est GFR (African American) 76.7; Est GFR (Non-African American) 66.2; Magnesium 2.2 mg/dl (1.8-2.4); Phosphorus 3.5 mg/dl (2.5-4.9); Potassium 4.7 mmol/L (3.5-5.1)
--- NOTE | 2018-10-22 04:46 | History & Physical Report ---
Date of Service October 22, 2018 Assessment & Plan (1) Acute urinary retention: Possibly secondary to mechanical obstruction from fecal retention/constipation. Rodriguez in place now draining clear, yellow urine -Maintain rodriguez catheter -Treat constipation as below -Monitor BUN/Cr, electrolytes and UOP -Consider Urology consultation or outpatient referral (2) Constipation: Patient has history of the same. -Colace 10mg po BID -Dulcolax 10mg MD daily -Miralax daily -Tap water enema daily -Encourage po intake and fluids -Encourage ambulation -Optimize electrolytes as needed (3) DVT (deep venous thrombosis): Newly diagnosed DVT in LLE. Currently on Xarelto 15mg po BID -Continue Xarelto at home dose - (4) DM w/o complication type II: Blood sugar elevated at 232. [id number]=6.3 on 07/15/18 -Continue Glargine 8u qHS -ISS (5) Essential hypertension: Blood pressure well controlled at present -Continue Amlodipine, Benazepril -Continue to [facility] (6) Pancreatic cancer metastasized to liver: Noted. -Chemo and Oncology followup on discharge -Oxycodone PRN pain -Patient is to have a staging CT scan of the abdomen performed, scheduled outpatient for today. Consider obtaining CT Abdomen prior to discharge F/E/N - NSS at 80mL/hr, monitor electrolytes and replete as needed, CC diet as tolerated, bowel regimen as above, continue home anti-emetics Ppx - On Xarelto Code - Full per discussion with patient Dispo - Admit to medical floor History of Present Illness Chief Complaint: constipation Primary Care Provider: Carl Lucero MD Very pleasant 68yo male with history of pancreatic CA on chemotherpy (last received on 10/19/18), recently diagnosed DVT on Xarelto presenting with abdominal pain and constipation. Patient reports no BM x 5 days, typically has a daily BM. Also with decreased UOP, poor po intake and abdominal pain. Rodriguez catheter was placed in ER with large amount of UOP, improvement in abdominal lee n. No additional complaints at this time. Allergies Allergy/AdvReac Type Severity Reaction Status Date / Time No Known Allergies Allergy Verified 10/21/18 21:22 Home Medications Home Medications Medication Instructions Recorded Confirmed Type amlodipine-benazepril 1 cap PO QAM 04/20/18 10/21/18 History cyanocobalamin (vitamin B-12) 1,000 mcg PO QAM 07/14/18 10/21/18 History [Vitamin B-12] Basaglar KwikPen U-100 Insulin 8 units SUBCUT HS 07/20/18 10/21/18 History insulin aspart U-100 [Novolog 0 unit SUBCUT TIDM PRN 07/22/18 10/21/18 History Flexpen U-100 Insulin] aspirin [Aspir-81] 81 mg PO QAM 08/29/18 10/21/18 History docusate sodium [Colace] 100 mg PO QAM 08/29/18 10/21/18 History ondansetron HCl [Zofran] 8 mg PO QAM 08/29/18 10/21/18 History oxycodone 10 mg PO Q4 PRN 08/29/18 10/21/18 History prochlorperazine maleate 10 mg PO Q6H PRN 08/29/18 10/21/18 History [Compazine] rivaroxaban [Xarelto] 15 mg PO BID 10/21/18 10/21/18 History rivaroxaban [Xarelto] 20 mg PO DAILY 10/21/18 10/21/18 History Past Med/Surg History Medical History Constipation Acute kidney injury Hyperglycemia due to type 2 diabetes mellitus Hospital-acquired pneumonia Abdominal pain Sepsis (Acute) Leukocytosis (Acute) Lactic acidosis (Acute) DVT prophylaxis Diabetes mellitus HTN (hypertension) Pancreatic cancer Common bile duct obstruction secondary to biliary stent Colon cancer screening Elevated LFTs Epigastric abdominal pain DVT prophylaxis Choledocholithiasis (Acute) Epigastric abdominal pain (Acute) Encounter for pre-operative examination Corneal abrasion of both eyes Acute pancreatitis Pancreatic cancer metastasized to liver Hyperlipidemia Essential hypertension DM w/o complication type II GRICELDA (obstructive sleep apnea) Acute urinary retention (Inactive) Constipation (Inactive) Dysphagia (Inactive) Epigastric abdominal pain (Inactive) Hypoglycemia (Inactive) Neutropenia (Inactive) Pancreatic cancer (Inactive) Basal cell carcinoma (BCC) of forehead S/P EXCISION Constipation Diabetes mellitus, type 2 History of pancreatitis RECENT; 07/2018 FELT 2/2 CBD/PANCREATIC DUCT STRICTURES PER [facility] HOSPITALIST NOTE- SURGEON AWARE Hyperlipidemia Hypertension Osteoarthritis Pancreatic cancer WITH LIVER METS Peripheral neuropathy left leg -sore to touch; no difficulty walking Sleep apnea CPAP 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 S/P MOHS PROCEDURE Surgical History H/O Moh's micrographic surgery for skin cancer H/O carpal tunnel repair B/L History of ERCP ERCP WITH BILIARY STENT PLACEMENT/EUS/SPHINCTEROTOMY= 07/14/18= GRADE VIEW 1, MAC 3, ETT 7.5 AT [facility] History of colonoscopy History of tonsillectomy History of tooth extraction WISDOM TEETH Family History Mother Gastric cancer Brother Gastric cancer Social History Preferred Language: Qatari Communication Ability: Effective Soloist Dancer Required: Yes Beliefs That Will Affect Care: None marital status: Current Living Situation: Spouse Current Living Situation Comment: House current occupational status: retired 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[employer], was also previously in the [employer] Other Information That Helps Us Care for You: No Feels Safe at Home: Yes Safety Concerns: Feels Safe At This Time Smoking Status: Never smoker Hx Alcohol Use: No Hx Substance Use: No Review of Systems All systems reviewed & are unremarkable except as noted in HPI & below Physical Exam Vital Signs (Past 24 Hours): Last Vital Signs Temp 36.5 C 10/22/18 02:54 Pulse 95 H 10/22/18 02:54 Resp 18 10/22/18 02:54 BP 118/71 10/22/18 02:54 Pulse Ox 95 10/22/18 02:54 Physical Exam: General: patient resting comfortably, NAD, non-toxic in appearance, AA&O x 4 Skin: warm, dry, intact, no rashes or lesions HEENT: NC/AT, PERRL, EOMI, anicteric sclera, conjunctiva without injection, external ear normal to inspection and nontender, nares patent, moist mucus membranes, dentition intact, no oropharyngeal lesions, neck supple, trachea midline, no LAD, no thyromegaly, no JVD Heart: +S1/S2, regular, no m/r/g Lungs: equal air entry bilaterally, no rales/rhonchi/wheezes Abd: +BS, soft, NT/ND, no masses/organomegaly/ascites Ext: warm, 2+ pulses in UE/LE bilaterally, no clubbing/cyanosis, trace edema RLE, LLE more swollen, red, tender Neuro: nonfocal, patient AA&O x 4, speech intact, no facial droop, moving all extremities on command with equal strength 5/5 Results & Data Laboratory Results Lab Results 10/21/18 10/21/18 10/21/18 Range/Units 21:46 21:50 21:57 WBC 4.17 L (4.8-10.8) K/uL RBC 2.89 L (4.7-6.1) M/uL Hgb 9.0 L (14.0-18.0) g/dL POC Hgb 9.2 L (14.0-18.0) g/dl Hct 26.8 L (42-52) % POC Hct 27 L (42-52) % MCV 92.7 (80-100) fL MCH 31.1 (25-34) pg MCHC 33.6 (32-36) g/dL RDW Std Deviation 53.8 H (36.4-46.3) fL RDW Coeff of Darron 16.1 H (11.5-14.5) % Plt Count 152 (130-400) K/uL MPV 9.0 (7.4-10.4) fL Immature Gran % (Auto) 1.7 % Neut % (Auto) 91.1 % Lymph % (Auto) 6.0 % Lares % (Auto) 1.2 % Eos % (Auto) 0.0 % Baso % (Auto) 0.0 % Immature Gran # (Auto) 0.07 H (0.00-0.02) K/uL Neut # (Auto) 3.80 (1.4-6.5) K/uL Lymph # (Auto) 0.25 L (1.2-3.4) K/uL Lares # (Auto) 0.05 L (0.11-0.59) K/uL Eos # (Auto) 0.00 (0-0.5) K/uL Baso # (Auto) 0.00 (0-0.2) K/uL PT (9.0-12.0) Seconds INR (0.9-1.1) APTT (21.0-31.0) Seconds PTT Ratio POC Sodium 134 L (135-144) mEq/L Sodium (136-145) mmol/L POC Potassium 5.0 (3.3-5.0) mEq/L Potassium (3.5-5.1) mmol/L POC Chloride 98 L (101-112) mEq/L Chloride (98-107) mmol/L Carbon Dioxide (21-32) mmol/L POC Total CO2 25 (24-31) mEq/l Anion Gap (3-11) POC Anion Gap 17.0 (16-25) mmol/L POC BUN 40 H (7-18) mg/dl BUN (7-18) mg/dl Creatinine (0.6-1.4) mg/dl POC Creatinine 1.3 (0.6-1.3) mg/dl Est Cr Clr Drug Dosing ml/min Est GFR ( Amer) Est GFR (Non-Af Amer) BUN/Creatinine Ratio (10-20) Glucose (70-99) mg/dl POC Glucose (70-99) POC Glucose (other) 240 H (70-99) mg/dl POC Lactic Acid Saurabh 1.77 H (0.90-1.70) mmol/L Calcium (8.5-10.1) mg/dl POC Ioniz Calcium Anuja 1.10 L (1.12-1.32) mmol/l Phosphorus (2.5-4.9) mg/dl Magnesium (1.8-2.4) mg/dl Total Bilirubin (0.2-1) mg/dl AST (15-37) U/L ALT (12-78) U/L Alkaline Phosphatase (45-117) U/L POC Troponin I (0-0.045) ng/ml Troponin I (0-0.045) ng/ml Total Protein (6.4-8.2) gm/dl Albumin (3.4-5.0) gm/dl Globulin (2.5-4.0) gm/dl Albumin/Globulin Ratio (0.9-2) Urine Color Urine Appearance (Clear) Urine pH (4.5-7.5) Ur Specific Waggoner (1.000-1.030) Urine Protein (Negative) Urine Glucose (UA) (Negative) Urine Ketones (Negative) Urine Blood (Negative) Urine Nitrite (Negative) Urine Bilirubin (Negative) Urine Urobilinogen (Negative) Ur Leukocyte Esterase (Negative) Urine WBC (Auto) (0-5) /hpf Urine RBC (Auto) (0-4) /hpf U Hyaline Cast (Auto) (0-5) /lpf U Epithel Cells (Auto) (0-5) /lpf Urine Bacteria (Auto) (Negative) 10/21/18 10/21/18 10/21/18 Range/Units 21:57 21:57 22:01 WBC (4.8-10.8) K/uL RBC (4.7-6.1) M/uL Hgb (14.0-18.0) g/dL POC Hgb (14.0-18.0) g/dl Hct (42-52) % POC Hct (42-52) % MCV (80-100) fL MCH (25-34) pg MCHC (32-36) g/dL RDW Std Deviation (36.4-46.3) fL RDW Coeff of Darron (11.5-14.5) % Plt Count (130-400) K/uL MPV (7.4-10.4) fL Immature Gran % (Auto) % Neut % (Auto) % Lymph % (Auto) % Lares % (Auto) % Eos % (Auto) % Baso % (Auto) % Immature Gran # (Auto) (0.00-0.02) K/uL Neut # (Auto) (1.4-6.5) K/uL Lymph # (Auto) (1.2-3.4) K/uL Lares # (Auto) (0.11-0.59) K/uL Eos # (Auto) (0-0.5) K/uL Baso # (Auto) (0-0.2) K/uL PT 13.2 H (9.0-12.0) Seconds INR 1.3 H (0.9-1.1) APTT 35.3 H (21.0-31.0) Seconds PTT Ratio 1.3 POC Sodium (135-144) mEq/L Sodium 137 (136-145) mmol/L POC Potassium (3.3-5.0) mEq/L Potassium 5.0 (3.5-5.1) mmol/L POC Chloride (101-112) mEq/L Chloride 102 (98-107) mmol/L Carbon Dioxide 29 (21-32) mmol/L POC Total CO2 (24-31) mEq/l Anion Gap 6.0 (3-11) POC Anion Gap (16-25) mmol/L POC BUN (7-18) mg/dl BUN 47 H (7-18) mg/dl Creatinine 1.43 H (0.6-1.4) mg/dl POC Creatinine (0.6-1.3) mg/dl Est Cr Clr Drug Dosing 44.9 ml/min Est GFR ( Amer) 57.1 Est GFR (Non-Af Amer) 49.3 BUN/Creatinine Ratio 32.7 H (10-20) Glucose 232 H (70-99) mg/dl POC Glucose (70-99) POC Glucose (other) (70-99) mg/dl POC Lactic Acid Saurabh (0.90-1.70) mmol/L Calcium 8.3 L (8.5-10.1) mg/dl POC Ioniz Calcium Anuja (1.12-1.32) mmol/l Phosphorus (2.5-4.9) mg/dl Magnesium (1.8-2.4) mg/dl Total Bilirubin 0.6 (0.2-1) mg/dl AST 12 L (15-37) U/L ALT 20 (12-78) U/L Alkaline Phosphatase 75 (45-117) U/L POC Troponin I < 0.03 (0-0.045) ng/ml Troponin I < 0.015 (0-0.045) ng/ml Total Protein 6.5 (6.4-8.2) gm/dl Albumin 2.4 L (3.4-5.0) gm/dl Globulin 4.1 H (2.5-4.0) gm/dl Albumin/Globulin Ratio 0.6 L (0.9-2) Urine Color Urine Appearance (Clear) Urine pH (4.5-7.5) Ur Specific Waggoner (1.000-1.030) Urine Protein (Negative) Urine Glucose (UA) (Negative) Urine Ketones (Negative) Urine Blood (Negative) Urine Nitrite (Negative) Urine Bilirubin (Negative) Urine Urobilinogen (Negative) Ur Leukocyte Esterase (Negative) Urine WBC (Auto) (0-5) /hpf Urine RBC (Auto) (0-4) /hpf U Hyaline Cast (Auto) (0-5) /lpf U Epithel Cells (Auto) (0-5) /lpf Urine Bacteria (Auto) (Negative) 10/21/18 10/22/18 10/22/18 Range/Units 23:01 02:59 03:15 WBC (4.8-10.8) K/uL RBC (4.7-6.1) M/uL Hgb (14.0-18.0) g/dL POC Hgb (14.0-18.0) g/dl Hct (42-52) % POC Hct (42-52) % MCV (80-100) fL MCH (25-34) pg MCHC (32-36) g/dL RDW Std Deviation (36.4-46.3) fL RDW Coeff of Darron (11.5-14.5) % Plt Count (130-400) K/uL MPV (7.4-10.4) fL Immature Gran % (Auto) % Neut % (Auto) % Lymph % (Auto) % Lares % (Auto) % Eos % (Auto) % Baso % (Auto) % Immature Gran # (Auto) (0.00-0.02) K/uL Neut # (Auto) (1.4-6.5) K/uL Lymph # (Auto) (1.2-3.4) K/uL Lares # (Auto) (0.11-0.59) K/uL Eos # (Auto) (0-0.5) K/uL Baso # (Auto) (0-0.2) K/uL PT (9.0-12.0) Seconds INR (0.9-1.1) APTT (21.0-31.0) Seconds PTT Ratio POC Sodium (135-144) mEq/L Sodium 136 (136-145) mmol/L POC Potassium (3.3-5.0) mEq/L Potassium 4.7 (3.5-5.1) mmol/L POC Chloride (101-112) mEq/L Chloride 104 (98-107) mmol/L Carbon Dioxide 26 (21-32) mmol/L POC Total CO2 (24-31) mEq/l Anion Gap 6.0 (3-11) POC Anion Gap (16-25) mmol/L POC BUN (7-18) mg/dl BUN 40 H (7-18) mg/dl Creatinine 1.12 D (0.6-1.4) mg/dl POC Creatinine (0.6-1.3) mg/dl Est Cr Clr Drug Dosing 57.4 ml/min Est GFR ( Amer) 76.7 Est GFR (Non-Af Amer) 66.2 BUN/Creatinine Ratio 35.8 H (10-20) Glucose 277 H (70-99) mg/dl POC Glucose 321 H (70-99) POC Glucose (other) (70-99) mg/dl POC Lactic Acid Saurabh (0.90-1.70) mmol/L Calcium 7.3 L (8.5-10.1) mg/dl POC Ioniz Calcium Anuja (1.12-1.32) mmol/l Phosphorus 3.5 (2.5-4.9) mg/dl Magnesium 2.2 (1.8-2.4) mg/dl Total Bilirubin (0.2-1) mg/dl AST (15-37) U/L ALT (12-78) U/L Alkaline Phosphatase (45-117) U/L POC Troponin I (0-0.045) ng/ml Troponin I (0-0.045) ng/ml Total Protein (6.4-8.2) gm/dl Albumin (3.4-5.0) gm/dl Globulin (2.5-4.0) gm/dl Albumin/Globulin Ratio (0.9-2) Urine Color Yellow Urine Appearance Clear (Clear) Urine pH 5.0 (4.5-7.5) Ur Specific Waggoner 1.019 (1.000-1.030) Urine Protein Negative (Negative) Urine Glucose (UA) 1+ H (Negative) Urine Ketones Negative (Negative) Urine Blood 1+ H (Negative) Urine Nitrite Negative (Negative) Urine Bilirubin Negative (Negative) Urine Urobilinogen Negative (Negative) Ur Leukocyte Esterase Negative (Negative) Urine WBC (Auto) 0 (0-5) /hpf Urine RBC (Auto) 0-4 (0-4) /hpf U Hyaline Cast (Auto) 1-5 (0-5) /lpf U Epithel Cells (Auto) 5-10 H (0-5) /lpf Urine Bacteria (Auto) Negative (Negative) Diagnostic Findings SINGLE VIEW CHEST CLINICAL HISTORY: Sepsis. FINDINGS: An AP, portable, upright chest radiograph is compared to study dated 09/30/2018 and correlated with chest CT dated 07/16/2018. The examination is degraded by portable technique and patient rotation. A right-sided central venous infusion port is unchanged in position. The cardiomediastinal silhouette is unremarkable, noting atherosclerotic calcification of the thoracic aorta. There is bibasilar scarring/atelectasis. No airspace consolidation or large pleural effusion is identified. No pneumothorax is seen. The skeletal structures are osteopenic. The bony thorax is grossly intact. IMPRESSION: No active disease in the chest. Electronically signed by: Pritesh Mercado M.D. 10/21/2018 10:22 PM Dictated: 10/21/182219 Transcribed: 10/21/182219 CT SCAN OF THE ABDOMEN AND PELVIS WITH IV CONTRAST CLINICAL HISTORY: Generalized abdominal pain. Pancreatic cancer. COMPARISON STUDY: Abdominal CT dated 07/22/2018. TECHNIQUE: Following the IV administration of 90 cc of Optiray 320, CT scan of the abdomen and pelvis is performed from the lung bases to the proximal femora. Images are reviewed in the axial, sagittal, and coronal planes. IV contrast was administered without complication. A dose lowering technique was utilized adhering to the principles of ALARA. CT DOSE: 500.99 mGy.cm FINDINGS: Lung bases: The tip of a central venous infusion port terminates at the cavoatrial junction. The heart is normal in size and without pericardial effusion. The coronary arteries are densely calcified. There is a small hiatal hernia. There is no airspace consolidation or pleural effusion. Bibasilar scarring/atelectasis is noted. There are scattered calcified granulomas. Small calcified pleural plaques are noted. Liver: The contrast-enhanced liver is normal in size, contour, and attenuation. There is minimal central intrahepatic biliary ductal dilatation and pneumobilia. The hepatic veins and portal veins are patent. A 1.3 cm low-attenuation lesion is again seen in segment Aletha on image #51, and a lesion in segment IVb is seen on image #95 measuring 1.8 cm. No new hepatic lesion is clearly seen. There are scattered calcified hepatic granulomas. Gallbladder: The gallbladder is mildly distended. The gallbladder wall is mildly thickened and hyperemic. Intraluminal gas is noted and there is mild stranding identified around the hepatic hilum. A stent in the common bile duct contains intraluminal gas and is presumed patent. Spleen: Normal in size and attenuation. There are numerous calcified splenic g ranulomas. 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 Pancreas: The pancreas is markedly atrophic. The pancreatic duct is dilated, measuring up to 7 mm in the pancreatic tail. Scattered subcentimeter cystic foci are again noted and likely represent tiny sidebranch IPMN's. The pancreatic head is heterogeneous. No well delineated mass lesion is seen. Adrenal glands: Unremarkable. Kidneys: The contrast enhanced kidneys are atrophic. There is moderate to severe bilateral hydronephrosis, likely related to marked bladder distention. 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 The kidneys enhance symmetrically. A circumaortic left renal vein is incidentally noted. Nonobstructing calculi are seen in the lower pole of the right kidney. Cortical hypodensities measuring up to 11 mm likely represent cysts but are too small for definitive characterization. Foci of cortical scarring are seen in the right lower pole. Abdominal vasculature: The abdominal aorta is normal in course and caliber noting advanced atherosclerotic calcification. Bowel: There is colonic fecal retention. No bowel obstruction is seen. The appendix is well-visualized and normal. Peritoneum: There is no intraperitoneal free air or abdominal ascites. Lymphadenopathy: None. Pelvic viscera: The bladder is markedly distended, measuring 26 cm in length but otherwise grossly unremarkable. The prostate gland is diminutive. Skeletal structures: The skeletal structures are osteopenic. Lumbosacral spondylosis is observed. No lytic or blastic lesions are seen. IMPRESSION: 1. The bladder is markedly distended, measuring over 26 cm in length. The appearance indicates bladder obstruction. 2. There is moderate to severe bilateral hydroureteronephrosis, likely related to the markedly distended bladder. 3. A common bile duct stent is in place. Gas within the stent and pneumobilia indicates patency of the stent. 4. The gallbladder is distended and contains intraluminal gas. The gallbladder wall appears mildly thickened and hyperemic and there is mild stranding around the gallbladder and in the hepatic hilum. These findings are likely related to the presence of the common bile duct stent. Acute cholecystitis is considered less likely and clinical correlation will be required. 5. The pancreas is atrophic. There is significant heterogeneity of the pancreatic head, with no well delineated mass lesion seen. 6. There are 2 low attenuation hepatic lesions, similar to previous. These are pathologically indeterminant and metastatic deposits are not excluded. 7. Right-sided nephrolithiasis. 8. Additional findings as above. Electronically signed by: Pritesh Mercado M.D. 10/21/2018 10:39 PM Dictated: 10/21/182223 Transcribed: 10/21/182223 Code Status & VTE Plan Code Status full VTE Prophylaxis Plan VTE Prophylaxis will be ordered: Yes Critical Care Time Critical Care Time: No (1) DM w/o complication type II Diabetes mellitus group home insulin use: with intermediate project manager use Qualified Code(s): E11.9 - Type 2 diabetes mellitus without complications; Z79.4 - MCFP (current) use of insulin (2) DVT (deep venous thrombosis) Affected thrombotic vein of extremity: unspecified vein of extremity Chronicity: acute DVT location: lower extremity Laterality: left Qualified Code(s): I82.402 - Acute embolism and thrombosis of unspecified deep veins of left lower extremity (3) Constipation Constipation type: unspecified constipation type Qualified Code(s): K59.00 - Constipation, unspecified
[2018-10-22] MEDS: OXYCODONE HCL IR 5 MG TAB (IMMEDIATE RELEASE) PO PRN (08:29)
[2018-10-22] MEDS: DOCUSATE SODIUM 100 MG CAP PO SCH ×2 (08:45→20:36)
[2018-10-22] MEDS: RIVAROXABAN 15 MG TAB PO SCH ×2 (08:46→20:36)
[2018-10-22] MEDS: CYANOCOBALAMIN 500 MCG TABLET (VITAMIN B-12) PO SCH (08:46)
[2018-10-22] MEDS: AMLODIPINE BESYLATE 5 MG TAB PO SCH (08:46)
[2018-10-22] MEDS: BENAZEPRIL HCL 10 MG TAB PO SCH (08:46)
[2018-10-22] MEDS: POLYETHYLENE (MIRALAX) 17 GM PACK PO SCH (08:47)
[2018-10-22] MEDS: INSULIN ASPART 100 UNITS/ML 3 ML PEN SC SCH ×4 (08:51→20:19)
[2018-10-22] MEDS: ONDANSETRON 8 MG TABLET PO SCH (10:15)
[2018-10-22] MEDS: TAP WATER ENEMA PR SCH (10:24)
[2018-10-22] MEDS ORDERED: VANCOMYCIN CONSULT ACTIVE PRN (20:22)
[2018-10-22] MEDS ORDERED: VANCOMYCIN HCL 1,500 MG in SODIUM CHLORIDE 0.9% 500 ML IV ONE (20:22)
[2018-10-22] MEDS: INSULIN GLARGINE SOLOSTAR 100 UNITS/ML 3 ML PEN SQ SCH (20:36)
[2018-10-22] MEDS ORDERED: VANCOMYCIN HCL 1,750 MG in SODIUM CHLORIDE 0.9% 500 ML IV ONE (20:45)
--- NOTE | 2018-10-22 23:49 | Hospitalist Progress Note ---
Date of Service October 22, 2018 Assessment & Plan (1) Acute urinary retention: Possibly secondary to mechanical obstruction from fecal retention/constipation. Rodriguez in place now draining clear, yellow urine -Maintain rodriguez catheter -Treat constipation as below -Monitor BUN/Cr, electrolytes and UOP -Consider Urology consultation or outpatient referral (2) Constipation: Patient has history of the same. -Colace 10mg po BID -Dulcolax 10mg DE daily -Miralax daily -Tap water enema daily -Encourage po intake and fluids -Encourage ambulation -Optimize electrolytes as needed (3) DVT (deep venous thrombosis): Newly diagnosed DVT in LLE. Currently on Xarelto 15mg po BID -Continue Xarelto at home dose - (4) DM w/o complication type II: Blood sugar elevated at 232. GlD2Z=1.3 on 07/15/18 -Continue Glargine 8u qHS -ISS (5) Essential hypertension: Blood pressure well controlled at present -Continue Amlodipine, Benazepril -Continue to [facility] (6) Pancreatic cancer metastasized to liver: Noted. -Chemo and Oncology followup on discharge -Oxycodone PRN pain -Patient is to have a staging CT scan of the abdomen performed, scheduled outpatient for today. Consider obtaining CT Abdomen prior to discharge F/E/N - NSS at 80mL/hr, monitor electrolytes and replete as needed, CC diet as tolerated, bowel regimen as above, continue home anti-emetics Ppx - On Xarelto Code - Full per discussion with patient Dispo - Admit to medical floor Physical Exam Vital Signs (Past 24 Hours): Last Vital Signs Temp 38.0 C H 10/22/18 23:03 Pulse 97 H 10/22/18 23:03 Resp 18 10/22/18 23:03 BP 123/68 10/22/18 23:03 Pulse Ox 93 10/22/18 23:03 (1) Constipation Constipation type: unspecified constipation type Qualified Code(s): K59.00 - Constipation, unspecified (2) DVT (deep venous thrombosis) DVT location: lower extremity Affected thrombotic vein of extremity: unspecified vein of extremity Chronicity: acute Laterality: left Qualified Code(s): I82.402 - Acute embolism and thrombosis of unspecified deep veins of left lower extremity (3) DM w/o complication type II Diabetes mellitus usp insulin use: with usp use Qualified Code(s): E11.9 - Type 2 diabetes mellitus without complications; Z79.4 - 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
[2018-10-23] MEDS: SODIUM CHLORIDE 0.9% 1000ML 1,000 ML IV SCH ×2 (03:02→16:07)
[2018-10-23 07:14] LABS: Eosinophils # (auto) 0.01 K/uL (0-0.5); Eosinophils % (auto) 1.3 %; Hematocrit (blood only) 21.5 % (42-52); Hemoglobin 7.2 g/dL (14.0-18.0); Immature Granulocytes # (auto) 0.01 K/uL (0.00-0.02); Immature Granulocytes % (auto) 1.3 %; Lymphocytes # (auto) 0.17 K/uL (1.2-3.4); Lymphocytes % (auto) 22.1 %; Mean Corpuscular Hgb Conc 33.5 g/dL (32-36); Mean Corpuscular Volume 93.1 fL (80-100); Monocytes # (auto) 0.03 K/uL (0.11-0.59); Monocytes % (auto) 3.9 %; Neutrophils # (auto) 0.55 K/uL (1.4-6.5); Neutrophils % (auto) 71.4 %; Platelet Count 159 K/uL (130-400); RDW Coefficient of Variation 16.1 % (11.5-14.5); Red Blood Count 2.31 M/uL (4.7-6.1); White Blood Count 0.77 K/uL (4.8-10.8)
[2018-10-23 07:15] LABS: Toxic Granulation 1+
[2018-10-23] MEDS: CYANOCOBALAMIN 500 MCG TABLET (VITAMIN B-12) PO SCH (08:59)
[2018-10-23] MEDS: AMLODIPINE BESYLATE 5 MG TAB PO SCH (08:59)
[2018-10-23] MEDS: POLYETHYLENE (MIRALAX) 17 GM PACK PO SCH (08:59)
[2018-10-23] MEDS: BENAZEPRIL HCL 10 MG TAB PO SCH (09:00)
[2018-10-23] MEDS: DOCUSATE SODIUM 100 MG CAP PO SCH ×2 (09:00→21:27)
[2018-10-23] MEDS: ONDANSETRON 8 MG TABLET PO SCH (09:01)
[2018-10-23] MEDS: RIVAROXABAN 15 MG TAB PO SCH ×2 (09:01→21:27)
[2018-10-23] MEDS: INSULIN ASPART 100 UNITS/ML 3 ML PEN SC SCH ×4 (09:14→21:28)
[2018-10-23] MEDS: TAP WATER ENEMA PR SCH (10:47)
--- NOTE | 2018-10-23 15:24 | Pharmacy Report ---
Pharmacy Abx Initial Consult - Date of Service October 23, 2018 - Pharmacy Dosing Scope Date of Consult: 10/23/18 Consultation requested by: Juarez Murphy Pharmacy is consulted to initiate Vancomycin IV dosing therapy, order appropriate labs and adjust drug dose/frequency. - Subjective The patient is a 68 year old M admitted on 10/22/18 01:40. - Objective Height: 5 ft 7 in Weight: 74.3 kg Vital Signs (Past 12hrs): Vital Signs Temp Pulse Resp BP BP Pulse Ox 10/23/18 12:00 37.1 C 99 H 18 111/71 97 10/23/18 07:51 37.0 C 93 H 18 106/70 93 10/23/18 04:00 37.7 C H 93 H 18 128/68 94 Lab Results (24hrs): Laboratory Tests (24 Hours) 10/23/18 06:15 WBC 0.77 L* Neut # (Auto) 0.55 L* - Risk Factors for Resistance * Patient with hx of Pancreatic Ca and recently had Chemotherapy- possibly immunocompromised. - Assessment & Plan Assessment 68 year old M with a history of Pancreatic Ca and recent chemotherapy. Currently admitted with Bacteremia. Blood culture resulted in Coag neg staph. Sensitivities pending. Vancomycin is ordered empirically - pharmacy to dose. Plan Vancomycin for treatment of bacteremia. Vancomycin IV * Estimated PK Parameters: Vd 0.7 L/kg, Graham 0.048 hr-1, t1/2 15 hr * Loading dose: Vancomycin 1750 mg (24 mg/kg) x 1 given 2044 on 10/22 * Maintenance dose: 1250 mg IV (17 mg/kg) every 18 hours * Goal trough level for bacteremia: 15 to 20 mcg/mL * Will order a trough Vanco level after 3rd or 4th dose depending on Scr/Crcl results tomorrow. Pharmacy will continue to follow and will adjust dose/frequency as necessary. Thank you.
[2018-10-23] MEDS: VANCOMYCIN HCL 1,250 MG in SODIUM CHLORIDE 0.9% 250 ML IV SCH (16:36)
[2018-10-23] MEDS: INSULIN GLARGINE SOLOSTAR 100 UNITS/ML 3 ML PEN SQ SCH (21:27)
--- NOTE | 2018-10-23 23:57 | Consultation Report ---
DATE OF CONSULTATION: 10/23/2018 REASON FOR CONSULTATION: Metastatic pancreatic cancer, currently receiving combination of Abraxane and gemcitabine. HISTORY OF PRESENT ILLNESS: Mr. Dsouza is a pleasant 68-year-old gentleman well known to [facility] with diagnoses of metastatic pancreatic cancer and DVT, admitted to [facility] yesterday with subacute-onset uncontrolled constipation and acute urinary retention. The patient has had no significant bowel movement despite multiple laxatives within the past 5 days. Apparently upon admission to hospital, Ugarte catheter was placed yielding a large amount of urine. Radiographic studies also demonstrated hydronephrosis bilaterally, which is not surprising. The patient's has stated Jozef has really not been eating much and despite multiple laxatives, he has been unable to move his bowels. He reports about a 50-pound weight loss since his initial diagnosis. CT scan of the abdomen and pelvis again showed a markedly distended bladder, [id number] bilateral hydroureteronephrosis. The interpreting radiologist also commented on the common bile duct stent, which is in place. Gallbladder itself is distended and contains intraluminal gas. Possible acute cholecystitis. Mr. Dsouza has been under my care receiving combination of Abraxane and gemcitabine, which for the most part has been well tolerated; however, Abraxane can certainly cause persistent constipation. The patient had been on opioids as well for pain. However, his states his opioid use has been minimal over the past week or so. Her main concern is his continued anorexia and weight loss. I have been asked to assist in the care of this very pleasant but unfortunate gentleman. PAST MEDICAL HISTORY: Again, significant for metastatic pancreatic cancer, basal cell carcinoma of the skin, type 2 diabetes mellitus, sleep apnea. PAST SURGICAL HISTORY: Includes Mohs procedure, colonoscopy, carpal tunnel, tonsillectomy and tooth extraction. SOCIAL HISTORY: The patient is , retired, nonsmoker, nondrinker. FAMILY HISTORY: Very strong family history of GI malignancies, particularly coming from the mother's side of his family. CURRENT MEDICATIONS: Include amlodipine, benazepril 1 capsule p.o. daily, cyanocobalamin 1000 mcg p.o. daily, Basaglar U-100 insulin 8 units subQ at bedtime, insulin aspart subcutaneous t.i.d. p.r.n., aspirin 81 mg p.o. daily, docusate sodium 100 mg p.o. daily, Zofran 8 mg p.o. q.a.m., oxycodone 10 mg p.o. q.4 hours p.r.n., Compazine 10 mg p.o. q.6 hours p.r.n., Xarelto 20 mg p.o. daily. ALLERGIES: No known drug allergies. REVIEW OF SYSTEMS: As per HPI, negative for fevers, chills or sweats. He is anorexic, significant weight loss as described in the HPI. SKIN: No rashes or lesions. HEENT: Denies headaches, lightheadedness or dizziness. No visual or hearing deficits. No sinus symptoms, sore throat or dysphagia. LYMPHATICS: No history of lymphoproliferative disease. CARDIAC: No angina or palpitations. PULMONARY: Negative for COPD. No shortness of breath, dyspnea or orthopnea. No cough or hemoptysis. GASTROINTESTINAL: Negative for abdominal pain, nausea, vomiting, diarrhea, hematochezia or melena stools. He is positive for constipation. GENITOURINARY: No hematuria or dysuria. Positive for urinary retention and hydronephrosis. ENDOCRINE: Negative for thyroid disease. Positive for diabetes mellitus. MUSCULOSKELETAL: No arthralgias or myalgias. Positive for generalized weakness. No arthralgias or myalgias. NEUROLOGIC: Negative for seizures, stroke, or migraine headaches. HEMATOLOGIC: Positive for thromboembolic disease. PHYSICAL EXAMINATION: GENERAL: Jozef is a pleasant 68-year-old cachectic, ill-appearing gentleman in no acute distress. VITAL SIGNS: Temperature 37.1, pulse 99, respiratory rate 18, blood pressure 111/71. SKIN: Warm, dry, noncyanotic without petechia, rash or ecchymosis. HEENT: Head atraumatic, normocephalic. Eyes: PERRLA, EOMI. Sclerae nonicteric. No conjunctival injection. Nares are patent without rhinorrhea or discharge. Throat is clear. Tongue is midline. Mucous membranes are moist. NECK: Supple without JVD or thyromegaly. LYMPHATICS: No cervical, supraclavicular, axillary or inguinal palpable nodes. HEART: Regular rate and rhythm. No clicks, rubs, murmurs or gallops. LUNGS: Clear to auscultation bilaterally. ABDOMEN: Soft, nontender, nondistended, without palpable hepatosplenomegaly. EXTREMITIES: No calf tenderness or swelling. No clubbing, cyanosis or edema. NEUROLOGICAL: He is awake, alert and oriented x3. Cranial nerves are intact. LABORATORY DATA: WBC count 770, hemoglobin 7.2, platelet count 159,000. Blood cultures negative. IMPRESSION: 1. Constipation. 2. Acute urinary retention. 3. Previous left lower extremity deep venous thrombosis. 4. Type 2 diabetes mellitus. 5. Metastatic pancreatic cancer. PLAN: Mr. Dsouza is a pleasant 68-year-old gentleman recently completed his third cycle of Abraxane and gemcitabine for metastatic pancreatic cancer. He continues to struggle with constipation despite multiple interventions. My concern moving forward is his failing nutritional status. He admits to having appetite, but struggles with dysgeusia and thus p.o. intake is minimal. I alluded to his may need to consider PEG tube for enteral feeding versus holding chemotherapy for a while and allowing him to regain his taste. His prognosis is exceedingly poor. However, he is on the verge of starting to if he does not start to increase the p.o. intake. He is also neutropenic, perhaps start him on a daily subQ injection of Neupogen 480 should suffice. Additionally, I would go ahead and transfuse 2 units of packed RBCs, which would be beneficial to improve his overall wellbeing. Lastly, his was actually flushing his MediPort when I walked in the room and asked her why she was flushing and she had been instructed by the IV team nurses and also my staff at [facility] that his port needed flushed every day, and I told her and advised her that that was not appropriate first of all having her do port flushes while Jozef is in-house. Additionally, these do not need to be done, but every 6 weeks. The MediPort was flushed after his last chemotherapeutic administration. As for the hydronephrosis, I agree the Ugarte catheter needs to remain in place. I suspect the urinary obstruction is attributable to his constipation. Place him on an aggressive bowel regiment. I believe the chemotherapy itself along with antiemetics and opioids are all contributing to his constipation issues. I have nothing further to add at this time and we will continue to see him periodically during hospital stay. If you have any questions or concerns, feel free to contact me at any time.
[2018-10-24] MEDS: SODIUM CHLORIDE 0.9% 1000ML 1,000 ML IV SCH (04:07)
[2018-10-24 07:18] LABS: Creatinine Clr Calc Pharmacy 78.4 ml/min; Est GFR (African American) 103.8; Est GFR (Non-African American) 89.6
[2018-10-24 08:22] LABS: Hematocrit (blood only) 22.4 % (42-52); Hemoglobin 7.4 g/dL (14.0-18.0); Mean Corpuscular Volume 93.3 fL (80-100); Mean Platelet Volume 9.1 fL (7.4-10.4); Platelet Count 193 K/uL (130-400); White Blood Count 1.47 K/uL (4.8-10.8)
[2018-10-24] MEDS: POLYETHYLENE (MIRALAX) 17 GM PACK PO SCH (08:27)
[2018-10-24] MEDS: TAP WATER ENEMA PR SCH (08:27)
[2018-10-24] MEDS: DOCUSATE SODIUM 100 MG CAP PO SCH ×2 (08:27→20:39)
[2018-10-24] MEDS: CYANOCOBALAMIN 500 MCG TABLET (VITAMIN B-12) PO SCH (08:28)
[2018-10-24] MEDS: RIVAROXABAN 15 MG TAB PO SCH ×2 (08:29→20:43)
[2018-10-24] MEDS: ONDANSETRON 8 MG TABLET PO SCH (08:29)
[2018-10-24] MEDS: AMLODIPINE BESYLATE 5 MG TAB PO SCH (08:29)
[2018-10-24] MEDS: BENAZEPRIL HCL 10 MG TAB PO SCH (08:30)
[2018-10-24] MEDS: VANCOMYCIN HCL 1,250 MG in SODIUM CHLORIDE 0.9% 250 ML IV SCH (08:36)
[2018-10-24 08:48] LABS: Eosinophils # (auto) 0.02 K/uL (0-0.5); Eosinophils % (auto) 1.4 %; Immature Granulocytes # (auto) 0.02 K/uL (0.00-0.02); Immature Granulocytes % (auto) 1.4 %; Lymphocytes # (auto) 0.29 K/uL (1.2-3.4); Lymphocytes % (auto) 19.7 %; Monocytes # (auto) 0.09 K/uL (0.11-0.59); Monocytes % (auto) 6.1 %; Neutrophils # (auto) 1.05 K/uL (1.4-6.5); Neutrophils % (auto) 71.4 %; RBC Morphology Unremarkable
[2018-10-24] MEDS: INSULIN ASPART 100 UNITS/ML 3 ML PEN SC SCH ×4 (09:25→20:39)
[2018-10-24 09:58] LABS: BUN Creatinine Ratio 20.4 (10-20); Calcium 7.1 mg/dl (8.5-10.1); Creatinine Clr Calc Pharmacy 69.9 ml/min; Est GFR (African American) 97.3; Potassium 4.3 mmol/L (3.5-5.1)
[2018-10-24] MEDS: NAFCILLIN SODIUM 2,000 MG in DEXTROSE 5% 100 ML IV SCH ×2 (16:52→22:02)
[2018-10-24] MEDS: INSULIN GLARGINE SOLOSTAR 100 UNITS/ML 3 ML PEN SQ SCH (20:41)
--- NOTE | 2018-10-25 00:59 | Hospitalist Progress Note ---
Date of Service October 23, 2018 Assessment & Plan (1) Acute urinary retention: Possibly secondary to mechanical obstruction from fecal retention/constipation. Rodriguez in place now draining clear, yellow urine -Maintain rodriguez catheter -Monitor BUN/Cr, electrolytes and UOP -Consider Urology outpatient referral Keep rodriguez in place. (2) Constipation: Patient has history of the same. -Colace 10mg po BID -Dulcolax 10mg AK daily -Miralax daily -Tap water enema daily -Encourage po intake and fluids -Encourage ambulation -Optimize electrolytes as needed. Patient is having BM. Appears to have resolved. (3) DVT (deep venous thrombosis): Newly diagnosed DVT in LLE. Currently on Xarelto 15mg po BID -Continue Xarelto at home dose - (4) DM w/o complication type II: Blood sugar elevated at 232. [id number]=4.3 on 07/15/18 -Continue Glargine 8u qHS -ISS (5) Essential hypertension: Blood pressure well controlled at present -Continue Amlodipine, Benazepril -Continue to [facility] (6) Leukopenia: due to leukopenia, will keep patient in hospital. will recheck labs in AM. (7) Pancreatic cancer metastasized to liver: Noted. -Chemo and Oncology followup on discharge -Oxycodone PRN pain -Patient is to have a staging CT scan of the abdomen performed, scheduled outpatient for today. Consider obtaining CT Abdomen prior to discharge Ppx - On Xarelto Code - Full per discussion with patient Subjective Patient appears fatigued and without energy. He is withdrawn during the exam and defers most of the questions to his . He currently denies ay pain. Physical Exam Vital Signs (Past 24 Hours): Last Vital Signs Temp 36.7 C 10/23/18 15:40 Pulse 94 10/23/18 15:40 Resp 16 10/23/18 15:40 BP 118/68 10/23/18 15:40 Pulse Ox 96 10/23/18 15:40 Physical Exam: General: patient resting comfortably, NAD, non-toxic in appearance, AA&O x 4 Skin: warm, dry, intact, no rashes or lesions HEENT: NC/AT, PERRL, EOMI, anicteric sclera, conjunctiva without injection, external ear normal to inspection and nontender, nares patent, moist mucus membranes, dentition intact, no oropharyngeal lesions, neck supple, trachea midline, no LAD, no thyromegaly, no JVD Heart: +S1/S2, regular, no m/r/g Lungs: equal air entry bilaterally, no rales/rhonchi/wheezes Abd: +BS, soft, NT/ND, no masses/organomegaly/ascites Ext: warm, 2+ pulses in UE/LE bilaterally, no clubbing/cyanosis, trace edema RLE, LLE more swollen, red, tender Neuro: nonfocal, patient AA&O x 4, speech intact, no facial droop, moving all extremities on command with equal strength 5/5 (1) DM w/o complication type II Diabetes mellitus jail insulin use: with jail use Qualified Code(s): E11.9 - Type 2 diabetes mellitus without complications; 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
--- NOTE | 2018-10-25 01:00 | Hospitalist Progress Note ---
Date of Service October 24, 2018 Assessment & Plan (1) Bacteremia: May be due to IV line port. states that port can only be removed at [place]. Will consult ID to see if port can be saved. Placed on nafcillin. patient initially treated on vanco. (2) Acute urinary retention: Possibly secondary to mechanical obstruction from fecal retention/constipation. Rodriguez in place now draining clear, yellow urine -Maintain rodriguez catheter -Monitor BUN/Cr, electrolytes and UOP -Consider Urology outpatient referral Keep rodriguez in place. (3) Constipation: Patient has history of the same. -Colace 10mg po BID -Dulcolax 10mg [place] daily -Miralax daily -Tap water enema daily -Encourage po intake and fluids -Encourage ambulation -Optimize electrolytes as needed. Patient is having BM. Appears to have resolved. (4) DVT (deep venous thrombosis): Newly diagnosed DVT in LLE. Currently on Xarelto 15mg po BID -Continue Xarelto at home dose - (5) DM w/o complication type II: Blood sugar elevated at 232. [id number] on 07/15/18 -Continue Glargine 8u qHS -ISS (6) Essential hypertension: Blood pressure well controlled at present -Continue Amlodipine, Benazepril -Continue to [facility] (7) Leukopenia: due to leukopenia, will keep patient in hospital. Has improved. Will continue to monitor. Patient is also anemic. Will monitor hemoglobin, if becomes lower than 7 will transfuse. (8) Pancreatic cancer metastasized to liver: Noted. -Chemo and Oncology followup on discharge -Oxycodone PRN pain -Ct scan of abd. ordered. Consulted Onc. Recommended possible NG tube feeding. Will monitor his diet. Patient may likely require transfer to [facility] tomorrow for Port removal. Ppx - On Xarelto Code - Full per discussion with patient Spent 35 minutes in management of patient. This included discussion with . Subjective Patient reports having BM. He reports no new symptoms. He had a BM on 10/23 He currently denies ay pain. Physical Exam Vital Signs (Past 24 Hours): Last Vital Signs Temp 37.1 C 10/24/18 23:29 Pulse 87 10/24/18 23:29 Resp 20 10/24/18 23:29 BP 102/63 10/24/18 23:29 Pulse Ox 92 10/24/18 23:29 Physical Exam: General: patient resting comfortably, NAD, non-toxic in appearance, AA&O x 4 Skin: warm, dry, intact, no rashes or lesions HEENT: NC/AT, PERRL, EOMI, anicteric sclera, conjunctiva without injection, external ear normal to inspection and nontender, nares patent, moist mucus membranes, dentition intact, no oropharyngeal lesions, neck supple, trachea midline, no LAD, no thyromegaly, no JVD Heart: +S1/S2, regular, no m/r/g Lungs: equal air entry bilaterally, no rales/rhonchi/wheezes Abd: +BS, soft, NT/ND, no masses/organomegaly/ascites Ext: warm, 2+ pulses in UE/LE bilaterally, no clubbing/cyanosis, trace edema RLE, LLE more swollen, red, tender Neuro: nonfocal, patient AA&O x 4, speech intact, no facial droop, moving all extremities on command with equal strength 5/5 (1) Constipation Constipation type: unspecified constipation type Qualified Code(s): K59.00 - Constipation, unspecified (2) DVT (deep venous thrombosis) DVT location: lower extremity Affected thrombotic vein of extremity: unspecified vein of extremity Chronicity: acute Laterality: left Qualified Code(s): I82.402 - Acute embolism and thrombosis of unspecified deep veins of left lower extremity (3) DM w/o complication type II Diabetes mellitus senior care insulin use: with terminal gauger use Qualified Code(s): E11.9 - Type 2 diabetes mellitus without complications; Z79.4 - [facility] (current) use of insulin
[2018-10-25] MEDS: NAFCILLIN SODIUM 2,000 MG in DEXTROSE 5% 100 ML IV SCH ×2 (04:00→10:02)
[2018-10-25 06:02] LABS: Hematocrit (blood only) 23.8 % (42-52); Hemoglobin 7.9 g/dL (14.0-18.0); Mean Corpuscular Hgb Conc 33.2 g/dL (32-36); Mean Corpuscular Volume 92.2 fL (80-100); Nucleated RBC # (auto) 0.03 K/uL (0-0); Nucleated RBC % (auto) 1.7 %; Platelet Count 183 K/uL (130-400); RDW Coefficient of Variation 16.1 % (11.5-14.5); RDW Standard Deviation 53.2 fL (36.4-46.3); Red Blood Count 2.58 M/uL (4.7-6.1); White Blood Count 1.88 K/uL (4.8-10.8)
[2018-10-25 06:38] LABS: Calcium 6.7 mg/dl (8.5-10.1); Creatinine Clr Calc Pharmacy 67.6 ml/min; Est GFR (African American) 93.6; Est GFR (Non-African American) 80.8; Magnesium 1.7 mg/dl (1.8-2.4); Phosphorus 2.1 mg/dl (2.5-4.9)
[2018-10-25] MEDS: AMLODIPINE BESYLATE 5 MG TAB PO SCH (08:28)
[2018-10-25] MEDS: DOCUSATE SODIUM 100 MG CAP PO SCH ×2 (08:28→21:54)
[2018-10-25] MEDS: CYANOCOBALAMIN 500 MCG TABLET (VITAMIN B-12) PO SCH (08:28)
[2018-10-25] MEDS: RIVAROXABAN 15 MG TAB PO SCH ×2 (08:28→21:54)
[2018-10-25] MEDS: BENAZEPRIL HCL 10 MG TAB PO SCH (08:28)
[2018-10-25] MEDS: ONDANSETRON 8 MG TABLET PO SCH (08:29)
[2018-10-25] MEDS: INSULIN ASPART 100 UNITS/ML 3 ML PEN SC SCH ×4 (08:51→22:02)
[2018-10-25] MEDS: TAP WATER ENEMA PR SCH (08:52)
[2018-10-25] MEDS: POLYETHYLENE (MIRALAX) 17 GM PACK PO SCH (08:52)
[2018-10-25] MEDS ORDERED: SODIUM PHOSPHATE 3 MMOL/1 ML INFUSION IV STA (11:03)
[2018-10-25] MEDS ORDERED: SODIUM PHOSPHATE 15 MMOL in SODIUM CHLORIDE 0.9% 250 ML IV ONE (11:15)
[2018-10-25] MEDS ORDERED: MAGNESIUM SULFATE / D5W 1 GM/100 ML BAG IV ONE (11:15)
--- NOTE | 2018-10-25 11:22 | Infectious Disease Consult ---
Date of Consultation October 25, 2018 Assessment & Plan (1) Staphylococcal sepsis: no clinical signs of port infection, but wbc count low. will change to rocephin for ease of once daily dosing. will repeat blood cultures, if + will likely need port removal. suggest echo r/o veg. will follow. History of Present Illness Attending Physician: Cody Carlisle, pt admitted with 5 days abd pain, no BM and subjective fevers. feeling somewhat better. has h/o pancreatic cancer with recent chemo. has port right chest wall, in place x 3 months. no pain at port site. wbc 1.8. had fever on admission, 38, now afebrile. 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 no repeat cultures, no echo done. no pain at port site. no f/c currenlty, no sob, cough, cp. currently no abd pain, no n/v/d, eating well. cxr negative in ER. CT abd - bladder obstruction, releived with rodriguez, remains in place. Allergies Allergy/AdvReac Type Severity Reaction Status Date / Time No Known Allergies Allergy Verified 10/21/18 21:22 Home Medications Home Medications Medication Instructions Recorded Confirmed Type amlodipine-benazepril 1 cap PO QAM 04/20/18 10/21/18 History cyanocobalamin (vitamin B-12) 1,000 mcg PO QAM 07/14/18 10/21/18 History [Vitamin B-12] Basaglar KwikPen U-100 Insulin 8 units SUBCUT HS 07/20/18 10/21/18 History insulin aspart U-100 [Novolog 0 unit SUBCUT TIDM PRN 07/22/18 10/21/18 History Flexpen U-100 Insulin] aspirin [Aspir-81] 81 mg PO QAM 08/29/18 10/21/18 History docusate sodium [Colace] 100 mg PO QAM 08/29/18 10/21/18 History ondansetron HCl [Zofran] 8 mg PO QAM 08/29/18 10/21/18 History oxycodone 10 mg PO Q4 PRN 08/29/18 10/21/18 History prochlorperazine maleate 10 mg PO Q6H PRN 08/29/18 10/21/18 History [Compazine] rivaroxaban [Xarelto] 15 mg PO BID 10/21/18 10/21/18 History rivaroxaban [Xarelto] 20 mg PO DAILY 10/21/18 10/21/18 History Patient History Medical History Constipation Acute kidney injury Hyperglycemia due to type 2 diabetes mellitus Hospital-acquired pneumonia Abdominal pain Sepsis (Acute) Leukocytosis (Acute) Lactic acidosis (Acute) DVT prophylaxis Diabetes mellitus HTN (hypertension) Pancreatic cancer Common bile duct obstruction secondary to biliary stent Colon cancer screening Elevated LFTs Epigastric abdominal pain DVT prophylaxis Choledocholithiasis (Acute) Epigastric abdominal pain (Acute) Encounter for pre-operative examination Corneal abrasion of both eyes Acute pancreatitis Pancreatic cancer metastasized to liver Hyperlipidemia Essential hypertension DM w/o complication type II GRICELDA (obstructive sleep apnea) Acute urinary retention (Inactive) Constipation (Inactive) Dysphagia (Inactive) Epigastric abdominal pain (Inactive) Hypoglycemia (Inactive) Neutropenia (Inactive) Pancreatic cancer (Inactive) Basal cell carcinoma (BCC) of forehead S/P EXCISION Constipation Diabetes mellitus, type 2 History of pancreatitis RECENT; 07/2018 FELT 2/2 CBD/PANCREATIC DUCT STRICTURES PER [facility]- SURGEON AWARE Hyperlipidemia Hypertension Osteoarthritis Pancreatic cancer WITH LIVER METS Peripheral neuropathy left leg -sore to touch; no difficulty walking Sleep apnea CPAP 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 S/P MOHS PROCEDURE Surgical History H/O Moh's micrographic surgery for skin cancer H/O carpal tunnel repair B/L History of ERCP ERCP WITH BILIARY STENT PLACEMENT/EUS/SPHINCTEROTOMY= 07/14/18= GRADE VIEW 1, MAC 3, ETT 7.5 AT [facility] History of colonoscopy History of tonsillectomy History of tooth extraction WISDOM TEETH Family History Mother Gastric cancer Brother Gastric cancer Social History Communication Ability: Effective Beliefs That Will Affect Care: None marital status: Current Living Situation: Spouse Current Living Situation Comment: House current occupational status: retired 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, was also previously in the [employer] Feels Safe at Home: Yes Smoking Status: Never smoker Hx Alcohol Use: No Hx Substance Use: No Review of Systems all remaining ros reviewed and are negative Physical Exam Vital Signs (Past 24 Hours): Last Vital Signs Temp 36.8 C 10/25/18 08:21 Pulse 75 10/25/18 08:21 Resp 16 10/25/18 08:21 BP 110/65 10/25/18 08:21 Pulse Ox 92 10/25/18 08:21 Constitutional: WD/WN, vitals as above Eyes: PERRL, conjunctivae normal, anicteric sclerae ENMT: external ear and nose normal, oropharynx normal Neck: normal visual inspection Respiratory: normal respiratory effort, lungs clear to auscultation Cardiovascular: RRR, no murmur, no edema Gastrointestinal (Abdomen): normal bowel sounds, soft, nontender, no hepatosplenomegaly Musculoskeletal: no cyanosis or clubbing, extremities motor strength 5/5 Skin: no rashes, warm and dry right chest wall port no erythema, no surrounding warmth, non tender Psychiatric: A+Ox3, euthymic affect Results & Data Laboratory Results Microbiology 10/21/18 Unknown Blood Blood Culture - Final Coag neg staph not lugdunensis 10/21/18 22:00 Blood Blood Culture - Final Coag neg staph not lugdunensis
[2018-10-25] MEDS: OXYCODONE HCL IR 5 MG TAB (IMMEDIATE RELEASE) PO PRN (11:39)
[2018-10-25] MEDS: cefTRIAXone SODIUM 2,000 MG in DEXTROSE 5% 50 ML IV SCH (12:18)
[2018-10-25] MEDS ORDERED: MEDICAL MARIJUANA PO PRN (12:38)
--- NOTE | 2018-10-25 16:54 | Hospitalist Progress Note ---
Date of Service October 25, 2018 Assessment & Plan (1) Staphylococcal sepsis: see below (2) Bacteremia: coag negative staph in two sets of cultures no fevers since antibiotics started repeat cultures drawn today, 10/25 check echo to r/o vegetations likely that port can stay change antibiotics to Rocephin for once a day dosing (3) Acute urinary retention: Possibly secondary to mechanical obstruction from fecal retention/constipation. Rodriguez in place now draining clear, yellow urine -Maintain rodriguez catheter -BUN/Cr stable follow up with urology for voiding trial, can consider further work up (4) Constipation: Patient has history of the same. -Colace 10mg po BID -Dulcolax 10mg WA daily -Miralax daily -Tap water enema daily -Encourage po intake and fluids -Encourage ambulation -Optimize electrolytes as needed. moved bowels after rodriguez drained bladder (5) DVT (deep venous thrombosis): Newly diagnosed DVT in LLE. Currently on Xarelto 15mg po BID -Continue Xarelto at home dose - (6) DM w/o complication type II: HsL9N=1.3 on 07/15/18 -Continue Glargine 8u qHS -ISS (7) Essential hypertension: Blood pressure well controlled at present -Continue Amlodipine, Benazepril -Continue to montior (8) Leukopenia: WBC improved to 1.88 hold on Neupogen since he is recovering (9) Pancreatic cancer metastasized to liver: CT scan shows that two liver lesions are stable, no decreased in size but also not increased in number or size chemo is planned through March according to discussed quality of life vs quantity he is losing weight, not eating well due to taste issues Dr. Combs had discussed pausing chemo to improve nutrition status (10) Anemia: due to bone marrow suppression from chemotherapy Hb is 7.8, continue to monitor Subjective patient doing okay today says that food tastes funny, textures don't feel right reviewed CT on admission, liver lesions stable, two small areas rodriguez still in place, planning on going home and follow up with urology moving bowels better since rodriguez drained bladder knows to stop flushing his port, the IV team assesses it every day discussed with Dr. Hope today, repeat cultures, change to rocephin hopeful that port can stay in place reviewed labs, pancytopenia but slowly improving Review of Systems All systems reviewed & are unremarkable except as noted in HPI & below Constitutional: + fatigue, + weakness and + weight loss Ear, Nose, Mouth, Throat: + problem reported (change in taste) Physical Exam Vital Signs (Past 24 Hours): Last Vital Signs Temp 36.9 C 10/25/18 14:46 Pulse 84 10/25/18 14:46 Resp 16 10/25/18 14:46 BP 97/59 L 10/25/18 14:46 Pulse Ox 91 10/25/18 14:46 Constitutional: WD/WN, vitals as above Eyes: PERRL, conjunctivae normal, anicteric sclerae ENMT: external ear and nose normal, oropharynx normal Neck: trachea midline, no thyromegaly Respiratory: normal respiratory effort, lungs clear to auscultation Cardiovascular: RRR, no murmur, no edema Gastrointestinal (Abdomen): normal bowel sounds, soft, nontender, no hepatosplenomegaly Musculoskeletal: no cyanosis or clubbing, extremities motor strength 5/5 Skin: no rashes, warm and dry Neurologic: patellar DTR's 2+ bilat, sensation intact and PERRL, EOMI, accomm odation nl, no face palsy, no dysarthria Psychiatric: A+Ox3, euthymic affect Lymphatic: no cervical or axillary lymphadenopathy Results & Data Laboratory Results Laboratory Results - last 24 hr 10/24/18 10/25/18 10/25/18 20:21 05:43 05:43 WBC 1.88 L RBC 2.58 L Hgb 7.9 L Hct 23.8 L MCV 92.2 MCH 30.6 MCHC 33.2 RDW Std Deviation 53.2 H RDW Coeff of Darron 16.1 H Plt Count 183 MPV 9.0 Absolute Nucleated RBC 0.03 H Nucleated RBC % (auto) 1.7 Sodium 138 Potassium 4.0 Chloride 106 Carbon Dioxide 27 Anion Gap 5.0 BUN 20 H Creatinine 0.95 Est Cr Clr Drug Dosing 67.6 Est GFR ( Amer) 93.6 Est GFR (Non-Af Amer) 80.8 BUN/Creatinine Ratio 21.0 H Glucose 198 H POC Glucose 182 H Calcium 6.7 L Phosphorus 2.1 L Magnesium 1.7 L Specimen Hemolysis 10/25/18 10/25/18 08:09 11:48 WBC RBC Hgb Hct MCV MCH MCHC RDW Std Deviation RDW Coeff of Darron Plt Count MPV Absolute Nucleated RBC Nucleated RBC % (auto) Sodium Potassium Chloride Carbon Dioxide Anion Gap BUN Creatinine Est Cr Clr Drug Dosing Est GFR ( Amer) Est GFR (Non-Af Amer) BUN/Creatinine Ratio Glucose POC Glucose 246 H 268 H Calcium Phosphorus Magnesium Specimen Hemolysis Medications Administered Current Inpatient Medications Acetaminophen (Tylenol) 650 mg PO Q4H PRN PRN Reason: pain/fever Stop: 11/21/18 02:46 Amlodipine Besylate (Norvasc) 5 mg PO QAM [facility] Stop: 11/21/18 08:59 Last Admin: 10/25/18 08:28 Dose: 5 mg Documented by: Benazepril HCl (Lotensin) 20 mg PO QAM [facility] Stop: 11/21/18 08:59 Last Admin: 10/25/18 08:28 Dose: 20 mg Documented by: Bisacodyl (Dulcolax) 10 mg WA DAILY PRN PRN Reason: Constipation Stop: 11/21/18 02:46 Cyanocobalamin (Vitamin B-12) 1,000 mcg PO DAILY [facility] Stop: 11/21/18 08:59 Last Admin: 10/25/18 08:28 Dose: 1,000 mcg Documented by: Dextrose (Dextrose 50%) 25 - 50 ml IV UD PRN; Protocol PRN Reason: Hypoglycemia Protocol Stop: 11/21/18 02:46 Docusate Sodium (Colace) 100 mg PO BID [facility] Stop: 11/21/18 08:59 Last Admin: 10/25/18 08:28 Dose: 100 mg Documented by: Glucagon (Glucagen) 1 mg SQ UD PRN; Protocol PRN Reason: Hypoglycemia Protocol Stop: 11/21/18 02:46 Glucose (Glucose 40%) 15 - 30 gm PO UD PRN; Protocol PRN Reason: Hypoglycemia Protocol Stop: 11/21/18 02:46 Glucose (Dex4 Glucose) 4 - 8 tabs PO UD PRN; Protocol PRN Reason: Hypoglycemia Protocol Stop: 11/21/18 02:46 Ceftriaxone Sodium 2,000 mg/ (Dextrose) 70 mls @ 100 mls/hr IV DAILY [facility]; Protocol Stop: 11/08/18 11:59 Last Infusion: 10/25/18 13:00 Dose: Infused Documented by: Insulin Aspart (Novolog Flexpen) 0 units SC ACHS [facility] Stop: 11/21/18 07:29 Last Admin: 10/25/18 13:13 Dose: 13 units Documented by: Insulin Glargine (Lantus Solostar Pen) 8 units SQ HS [facility] Stop: 11/21/18 20:59 Last Admin: 10/24/18 20:41 Dose: 8 units Documented by: Miscellaneous (Tap Water Enema) 1 ea WA DAILY [facility] Stop: 11/21/18 08:59 Last Admin: 10/25/18 08:52 Dose: Not Given Documented by: Miscellaneous (Carbohydrates For Hypoglycemia) 15 - 30 gm PO UD PRN PRN Reason: Hypoglycemia Treatment Stop: 11/21/18 02:46 Miscellaneous Medication (Medical Marijuana) 1 dose PO PRN PRN PRN Reason: PRN Stop: 11/24/18 12:37 Ondansetron HCl (Zofran) 8 mg PO QAM [facility] Stop: 11/21/18 08:59 Last Admin: 10/25/18 08:29 Dose: 8 mg Documented by: Oxycodone HCl (Roxicodone Immediate Rel) 10 mg PO Q4 PRN PRN Reason: Pain Stop: 11/05/18 02:46 Last Admin: 10/25/18 11:39 Dose: 10 mg Documented by: Polyethylene Glycol (Miralax Powder Packet) 17 gm PO DAILY [facility] Stop: 11/21/18 08:59 Last Admin: 10/25/18 08:52 Dose: Not Given Documented by: Prochlorperazine (Compazine) 10 mg PO Q6H PRN PRN Reason: Nausea And Vomiting Stop: 11/21/18 02:46 Rivaroxaban (Xarelto) 15 mg PO BID [facility]; Protocol Stop: 11/09/18 21:01 Last Admin: 10/25/18 08:28 Dose: 15 mg Documented by: Rivaroxaban (Xarelto) 20 mg PO DAILY@1700 [facility] Stop: 12/10/18 16:59 (1) DM w/o complication type II 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
[2018-10-25] MEDS: INSULIN GLARGINE SOLOSTAR 100 UNITS/ML 3 ML PEN SQ SCH (22:01)
[2018-10-26] MEDS: INSULIN ASPART 100 UNITS/ML 3 ML PEN SC SCH ×5 (03:21→21:14)
[2018-10-26 06:15] LABS: Hemoglobin 8.1 g/dL (14.0-18.0); Mean Corpuscular Hgb Conc 33.8 g/dL (32-36); Mean Corpuscular Volume 93.8 fL (80-100); Mean Platelet Volume 8.7 fL (7.4-10.4); Nucleated RBC # (auto) 0.19 K/uL (0-0); Nucleated RBC % (auto) 4.8 %; Platelet Count 180 K/uL (130-400); RDW Coefficient of Variation 16.2 % (11.5-14.5); RDW Standard Deviation 54.2 fL (36.4-46.3); Red Blood Count 2.56 M/uL (4.7-6.1); White Blood Count 3.99 K/uL (4.8-10.8)
[2018-10-26 06:47] LABS: BUN Creatinine Ratio 20.5 (10-20); Creatinine Clr Calc Pharmacy 58.4 ml/min; Est GFR (African American) 78.4; Est GFR (Non-African American) 67.7; Potassium 3.9 mmol/L (3.5-5.1)
[2018-10-26 07:07] LABS: ALC (manual) 0.53 K/uL (1.2-3.4); Lymphocytes # (manual) 0.53 K/uL (1.2-3.4); Lymphocytes % (manual) 13.4 %; Metamyelocytes # (manual) 0.25 K/uL (0-0); Metamyelocytes % (manual) 6.3 %; Monocytes # (manual) 0.32 K/uL (0.11-0.59); Myelocytes # (manual) 0.36 K/uL (0-0); Myelocytes % (manual) 8.9 %; Neutrophils % (manual) 58.9 %; Promyelocytes # (manual) 0.18 K/uL (0-0); Promyelocytes % (manual) 4.5 %; Toxic Granulation 2+
[2018-10-26] MEDS: BENAZEPRIL HCL 10 MG TAB PO SCH (08:59)
[2018-10-26] MEDS: ONDANSETRON 8 MG TABLET PO SCH (08:59)
[2018-10-26] MEDS: AMLODIPINE BESYLATE 5 MG TAB PO SCH (08:59)
[2018-10-26] MEDS: DOCUSATE SODIUM 100 MG CAP PO SCH ×2 (08:59→21:16)
[2018-10-26] MEDS: CYANOCOBALAMIN 500 MCG TABLET (VITAMIN B-12) PO SCH (08:59)
[2018-10-26] MEDS: TAP WATER ENEMA PR SCH ×2 (09:00→13:26)
[2018-10-26] MEDS: POLYETHYLENE (MIRALAX) 17 GM PACK PO SCH (09:00)
[2018-10-26] MEDS: RIVAROXABAN 15 MG TAB PO SCH ×2 (09:00→21:14)
[2018-10-26] MEDS: cefTRIAXone SODIUM 2,000 MG in DEXTROSE 5% 50 ML IV SCH (09:06)
[2018-10-26] MEDS ORDERED: INSULIN GLARGINE SOLOSTAR 100 UNITS/ML 3 ML PEN SC STA (11:48)
--- NOTE | 2018-10-26 12:40 | Hospitalist Progress Note ---
Date of Service October 26, 2018 Assessment & Plan (1) Staphylococcal sepsis: see below (2) Bacteremia: coag negative staph in two sets of cultures no fevers since antibiotics started repeat cultures drawn 10/25 check echo to r/o vegetations, report still pending, no murmur on exam continue Rocephin if repeat cultures positive then port would need removed (3) Acute urinary retention: Possibly secondary to mechanical obstruction from fecal retention/constipation. Rodriguez in place now draining clear, yellow urine -Maintain rodriguez catheter -BUN/Cr stable follow up with urology for voiding trial, can consider further work up if he is still here on then will pull rodriguez for voiding trial prior to discharge (4) Constipation: Patient has history of the same. -Colace 10mg po BID -Dulcolax 10mg ID daily -Miralax daily -Tap water enema daily -Encourage po intake and fluids -Encourage ambulation -Optimize electrolytes as needed. moved bowels after rodriguez drained bladder now no BM for a few days, this is typical for him will use enema PRN (5) DVT (deep venous thrombosis): Newly diagnosed DVT in LLE. Currently on Xarelto 15mg po BID -Continue Xarelto at home dose (6) DM w/o complication type II: CmU0N=2.3 on 07/15/18 some hyperglycemia last night after milkshake increase Lantus to 15 units continue Novolog SS (7) Essential hypertension: Blood pressure well controlled at present -Continue Amlodipine, Benazepril -Continue to montior (8) Leukopenia: WBC improved to 3k today hold on Neupogen since he is recovering (9) Pancreatic cancer metastasized to liver: CT scan shows that two liver lesions are stable, no decreased in size but also not increased in number or size chemo is planned through March according to discussed quality of life vs quantity he is losing weight, not eating well due to taste issues Dr. Combs had discussed pausing chemo to improve nutrition status (10) Anemia: due to bone marrow suppression from chemotherapy Hb is 8 today. continue to monitor Subjective patient says he feels tired and weak still poor appetite, had a milkshake last night, little to eat in the evening, hardly any breakfast still with difficult time tasting food, this is what limits his appetite denies nausea, abdominal pain has not moved bowels for a few days, since admission wants to get up and get moving, agrees with therapy reviewed labs, WBC and Hb trending up, Cr stable updated at the bedside discussed with Dr. Hope Review of Systems All systems reviewed & are unremarkable except as noted in HPI & below Physical Exam Vital Signs (Past 24 Hours): Last Vital Signs Temp 37.5 C 10/26/18 11:45 Pulse 90 10/26/18 11:45 Resp 18 10/26/18 11:45 BP 104/69 10/26/18 11:45 Pulse Ox 90 10/26/18 11:45 Constitutional: WD/WN, vitals as above Eyes: PERRL, conjunctivae normal, anicteric sclerae ENMT: external ear and nose normal, oropharynx normal Neck: trachea midline, no thyromegaly Respiratory: normal respiratory effort, lungs clear to auscultation Cardiovascular: RRR, no murmur, no edema Gastrointestinal (Abdomen): normal bowel sounds, soft, nontender, no hepatosplenomegaly Musculoskeletal: no cyanosis or clubbing, extremities motor strength 5/5 Skin: no rashes, warm and dry Neurologic: patellar DTR's 2+ bilat, sensation intact and PERRL, EOMI, accommodation nl, no face palsy, no dysarthria Psychiatric: A+Ox3, euthymic affect Lymphatic: no cervical or axillary lymphadenopathy Results & Data Laboratory Results Laboratory Results - last 24 hr 10/25/18 10/25/18 10/25/18 16:57 20:05 20:08 WBC RBC Hgb Hct MCV MCH MCHC RDW Std Deviation RDW Coeff of Darron Plt Count MPV Absolute Nucleated RBC Nucleated RBC % (auto) Neutrophils % (Manual) Lymphocytes % (Manual) Monocytes % (Manual) Metamyelocytes % (Man) Myelocytes % (Man) Promyelocytes % (Man) Neutrophils # (Manual) Total Absolute Neuts Lymphocytes # (Manual) Total Abs Lymphocytes Monocytes # (Manual) Metamyelocytes # (Man) Myelocytes # (Manual) Promyelocytes # (Man) Toxic Granulation Sodium Potassium Chloride Carbon Dioxide Anion Gap BUN Creatinine Est Cr Clr Drug Dosing Est GFR ( Amer) Est GFR (Non-Af Amer) BUN/Creatinine Ratio Glucose POC Glucose 343 H 402 H* 387 H* Calcium 10/26/18 10/26/18 10/26/18 02:15 02:19 05:56 WBC 3.99 L RBC 2.56 L Hgb 8.1 L Hct 24.0 L MCV 93.8 MCH 31.6 MCHC 33.8 RDW Std Deviation 54.2 H RDW Coeff of Darron 16.2 H Plt Count 180 MPV 8.7 Absolute Nucleated RBC 0.19 H Nucleated RBC % (auto) 4.8 Neutrophils % (Manual) 58.9 Lymphocytes % (Manual) 13.4 Monocytes % (Manual) 8.0 Metamyelocytes % (Man) 6.3 Myelocytes % (Man) 8.9 Promyelocytes % (Man) 4.5 Neutrophils # (Manual) 2.35 Total Absolute Neuts 2.35 Lymphocytes # (Manual) 0.53 L Total Abs Lymphocytes 0.53 L Monocytes # (Manual) 0.32 Metamyelocytes # (Man) 0.25 H Myelocytes # (Manual) 0.36 H Promyelocytes # (Man) 0.18 H Toxic Granulation 2+ Sodium Potassium Chloride Carbon Dioxide Anion Gap BUN Creatinine Est Cr Clr Drug Dosing Est GFR ( Amer) Est GFR (Non-Af Amer) BUN/Creatinine Ratio Glucose POC Glucose 317 H 338 H Calcium 10/26/18 10/26/18 10/26/18 05:56 07:43 11:27 WBC RBC Hgb Hct MCV MCH MCHC RDW Std Deviation RDW Coeff of Darron Plt Count MPV Absolute Nucleated RBC Nucleated RBC % (auto) Neutrophils % (Manual) Lymphocytes % (Manual) Monocytes % (Manual) Metamyelocytes % (Man) Myelocytes % (Man) Promyelocytes % (Man) Neutrophils # (Manual) Total Absolute Neuts Lymphocytes # (Manual) Total Abs Lymphocytes Monocytes # (Manual) Metamyelocytes # (Man) Myelocytes # (Manual) Promyelocytes # (Man) Toxic Granulation Sodium 140 Potassium 3.9 Chloride 107 Carbon Dioxide 28 Anion Gap 5.0 BUN 23 H Creatinine 1.10 Est Cr Clr Drug Dosing 58.4 Est GFR ( Amer) 78.4 Est GFR (Non-Af Amer) 67.7 BUN/Creatinine Ratio 20.5 H Glucose 238 H POC Glucose 289 H 272 H Calcium 7.0 L 10/26/18 11:34 WBC RBC Hgb Hct MCV MCH MCHC RDW Std Deviation RDW Coeff of Darron Plt Count MPV Absolute Nucleated RBC Nucleated RBC % (auto) Neutrophils % (Manual) Lymphocytes % (Manual) Monocytes % (Manual) Metamyelocytes % (Man) Myelocytes % (Man) Promyelocytes % (Man) Neutrophils # (Manual) Total Absolute Neuts Lymphocytes # (Manual) Total Abs Lymphocytes Monocytes # (Manual) Metamyelocytes # (Man) Myelocytes # (Manual) Promyelocytes # (Man) Toxic Granulation Sodium Potassium Chloride Carbon Dioxide Anion Gap BUN Creatinine Est Cr Clr Drug Dosing Est GFR ( Amer) Est GFR (Non-Af Amer) BUN/Creatinine Ratio Glucose POC Glucose 260 H Calcium Medications Administered Current Inpatient Medications Acetaminophen (Tylenol) 650 mg PO Q4H PRN PRN Reason: pain/fever Stop: 11/21/18 02:46 Amlodipine Besylate (Norvasc) 5 mg PO QAM [facility] Stop: 11/21/18 08:59 Last Admin: 10/26/18 08:59 Dose: 5 mg Documented by: Benazepril HCl (Lotensin) 20 mg PO QAM [facility] Stop: 11/21/18 08:59 Last Admin: 10/26/18 08:59 Dose: 20 mg Documented by: Bisacodyl (Dulcolax) 10 mg ID DAILY PRN PRN Reason: Constipation Stop: 11/21/18 02:46 Cyanocobalamin (Vitamin B-12) 1,000 mcg PO DAILY [facility] Stop: 11/21/18 08:59 Last Admin: 10/26/18 08:59 Dose: 1,000 mcg Documented by: Dextrose (Dextrose 50%) 25 - 50 ml IV UD PRN; Protocol PRN Reason: Hypoglycemia Protocol Stop: 11/21/18 02:46 Docusate Sodium (Colace) 100 mg PO BID [facility] Stop: 11/21/18 08:59 Last Admin: 10/26/18 08:59 Dose: 100 mg Documented by: Glucagon (Glucagen) 1 mg SQ UD PRN; Protocol PRN Reason: Hypoglycemia Protocol Stop: 11/21/18 02:46 Glucose (Glucose 40%) 15 - 30 gm PO UD PRN; Protocol PRN Reason: Hypoglycemia Protocol Stop: 11/21/18 02:46 Glucose (Dex4 Glucose) 4 - 8 tabs PO UD PRN; Protocol PRN Reason: Hypoglycemia Protocol Stop: 11/21/18 02:46 Ceftriaxone Sodium 2,000 mg/ (Dextrose) 70 mls @ 100 mls/hr IV DAILY [facility]; Protocol Stop: 11/08/18 11:59 Last Infusion: 10/26/18 10:19 Dose: Infused Documented by: Insulin Aspart (Novolog Flexpen) 0 units SC ACHS [facility] Stop: 11/21/18 07:29 Last Admin: 10/26/18 09:01 Dose: 11 units Documented by: Insulin Glargine (Lantus Solostar Pen) 15 units SQ HS [facility] Stop: 11/25/18 20:59 Megestrol Acetate (Megace) 800 mg PO QAM [facility] Stop: 11/26/18 08:59 Miscellaneous (Tap Water Enema) 1 ea ID DAILY [facility] Stop: 11/21/18 08:59 Last Admin: 10/26/18 09:00 Dose: Not Given Documented by: Miscellaneous (Carbohydrates For Hypoglycemia) 15 - 30 gm PO UD PRN PRN Reason: Hypoglycemia Treatment Stop: 11/21/18 02:46 Miscellaneous Medication (Medical Marijuana) 1 dose PO PRN PRN PRN Reason: PRN Stop: 11/24/18 12:37 Ondansetron HCl (Zofran) 8 mg PO QAM [facility] Stop: 11/21/18 08:59 Last Admin: 10/26/18 08:59 Dose: 8 mg Documented by: Oxycodone HCl (Roxicodone Immediate Rel) 10 mg PO Q4 PRN PRN Reason: Pain Stop: 11/05/18 02:46 Last Admin: 10/25/18 11:39 Dose: 10 mg Documented by: Polyethylene Glycol (Miralax Powder Packet) 17 gm PO DAILY [facility] Stop: 11/21/18 08:59 Last Admin: 10/26/18 09:00 Dose: 17 gm Documented by: Prochlorperazine (Compazine) 10 mg PO Q6H PRN PRN Reason: Nausea And Vomiting Stop: 11/21/18 02:46 Rivaroxaban (Xarelto) 15 mg PO BID [facility]; Protocol Stop: 11/09/18 21:01 Last Admin: 10/26/18 09:00 Dose: 15 mg Documented by: Rivaroxaban (Xarelto) 20 mg PO DAILY@1700 [facility] Stop: 12/10/18 16:59 (1) DM w/o complication type II Diabetes mellitus [facility] insulin use: with terminal make up operator use Qualified Code(s): E11.9 - Type 2 diabetes mellitus without complications; Z79.4 - intermediate (current) use of insulin (2) DVT (deep venous thrombosis) Affected thrombotic vein of extremity: unspecified vein of extremity Chronicity: acute DVT location: lower extremity Laterality: left Qualified Code(s): I82.402 - Acute embolism and thrombosis of unspecified deep veins of left lower extremity (3) Constipation Constipation type: unspecified constipation type Qualified Code(s): K59.00 - Constipation, unspecified
--- NOTE | 2018-10-26 14:25 | Infectious Disease Progress Nt ---
Date of Service October 26, 2018 Assessment & Plan (1) Staphylococcal sepsis: no clinical signs of port infection, but wbc count low. will change to rocephin for ease of once daily dosing. will repeat blood cultures, if + will likely need port removal. suggest echo r/o veg. will follow. Subjective on rocephin, tolerating well. repeat blood cultures pending, echo pending, wbc 3.9 today. Physical Exam Vital Signs (Past 24 Hours): Last Vital Signs Temp 37.5 C 10/26/18 11:45 Pulse 90 10/26/18 11:45 Resp 18 10/26/18 11:45 BP 104/69 10/26/18 11:45 Pulse Ox 90 10/26/18 11:45 Results & Data Laboratory Results Procedures Dilation of Common Bile Duct with Intraluminal Device, Via Natural or Artificial Opening Endoscopic (07/15/18) Dilation of Pancreatic Duct with Intraluminal Device, Via Natural or Artificial Opening Endoscopic (07/15/18) Excision of Liver, Percutaneous Endoscopic Approach, Diagnostic (07/15/18) Excision of Pancreas, Percutaneous Endoscopic Approach, Diagnostic (07/15/18) Excision of Pelvis Lymphatic, Percutaneous Endoscopic Approach, Diagnostic (07/15/18) Injection or infusion of other therapeutic or prophylactic substance (08/09/12) Respiratory medication administered by nebulizer (08/09/12) Microbiology 10/21/18 Unknown Blood Blood Culture - Final Coag neg staph not lugdunensis 10/21/18 22:00 Blood Blood Culture - Final Coag neg staph not lugdunensis
[2018-10-26] MEDS: INSULIN GLARGINE SOLOSTAR 100 UNITS/ML 3 ML PEN SQ SCH (21:15)
[2018-10-27 06:30] LABS: Hematocrit (blood only) 24.3 % (42-52); Mean Corpuscular Hgb Conc 32.9 g/dL (32-36); Mean Corpuscular Volume 94.2 fL (80-100); Mean Platelet Volume 8.7 fL (7.4-10.4); Nucleated RBC # (auto) 0.51 K/uL (0-0); Nucleated RBC % (auto) 7.6 %; Platelet Count 171 K/uL (130-400); RDW Coefficient of Variation 16.9 % (11.5-14.5); RDW Standard Deviation 55.6 fL (36.4-46.3); Red Blood Count 2.58 M/uL (4.7-6.1); White Blood Count 6.72 K/uL (4.8-10.8)
[2018-10-27 07:06] LABS: BUN Creatinine Ratio 20.5 (10-20); Calcium 7.1 mg/dl (8.5-10.1); Creatinine Clr Calc Pharmacy 65.6 ml/min; Est GFR (African American) 90.2; Est GFR (Non-African American) 77.8; Potassium 3.9 mmol/L (3.5-5.1)
[2018-10-27 08:22] LABS: ALC (manual) 1.86 K/uL (1.2-3.4); Basophils # (manual) 0.06 K/uL (0-0.2); Basophils % (manual) 0.9 %; Eosinophils # (manual) 0.12 K/uL (0-0.5); Eosinophils % (manual) 1.8 %; Lymphocytes # (manual) 1.86 K/uL (1.2-3.4); Lymphocytes % (manual) 27.7 %; Metamyelocytes # (manual) 0.48 K/uL (0-0); Metamyelocytes % (manual) 7.1 %; Monocytes # (manual) 0.42 K/uL (0.11-0.59); Monocytes % (manual) 6.3 %; Myelocytes % (manual) 13.4 %; Ovalocytes 1+; Polychromasia 1+; Promyelocytes # (manual) 0.12 K/uL (0-0); Promyelocytes % (manual) 1.8 %; Spherocytes Occasional; Toxic Granulation 1+
[2018-10-27] MEDS: cefTRIAXone SODIUM 2,000 MG in DEXTROSE 5% 50 ML IV SCH (08:49)
[2018-10-27] MEDS: BENAZEPRIL HCL 10 MG TAB PO SCH (08:50)
[2018-10-27] MEDS: MEGESTROL ACETATE 800 MG/20 ML UDP PO SCH (08:50)
[2018-10-27] MEDS: DOCUSATE SODIUM 100 MG CAP PO SCH ×2 (08:50→22:04)
[2018-10-27] MEDS: AMLODIPINE BESYLATE 5 MG TAB PO SCH (08:50)
[2018-10-27] MEDS: CYANOCOBALAMIN 500 MCG TABLET (VITAMIN B-12) PO SCH (08:50)
[2018-10-27] MEDS: RIVAROXABAN 15 MG TAB PO SCH ×2 (08:50→22:05)
[2018-10-27] MEDS: POLYETHYLENE (MIRALAX) 17 GM PACK PO SCH (08:59)
[2018-10-27] MEDS: INSULIN ASPART 100 UNITS/ML 3 ML PEN SC SCH ×5 (09:00→22:06)
[2018-10-27] MEDS: TAP WATER ENEMA PR SCH (09:01)
[2018-10-27] MEDS: ONDANSETRON 8 MG TABLET PO SCH (09:01)
[2018-10-27] MEDS ORDERED: SODIUM CHLORIDE 0.65% NA SOLN 45 ML (OCEAN) ONE (09:04)
--- NOTE | 2018-10-27 14:41 | Infectious Disease Progress Nt ---
Date of Service October 27, 2018 Assessment & Plan (1) Staphylococcal sepsis: no clinical signs of port infection, continue rocpehin will repeat blood cultures, if + will likely need port removal but are negative to date. await echo - if echo negative and repeat blood cultures remain negative would give 14 days IV Rocephin from first negative cultures Subjective on rocephin, tolerating well. repeat blood cultures 10/25 negative to date echo pending, wbc 6.7 today. Physical Exam Vital Signs (Past 24 Hours): Last Vital Signs Temp 36.2 C L 10/27/18 13:06 Pulse 95 H 10/27/18 11:43 Resp 20 10/27/18 11:43 BP 129/70 10/27/18 13:06 Pulse Ox 95 10/27/18 11:43 Results & Data Laboratory Results Microbiology 10/25/18 12:14 Blood Blood Culture - Preliminary No growth to date. 10/25/18 11:59 Blood Blood Culture - Preliminary No growth to date. 10/21/18 Unknown Blood Blood Culture - Final Coag neg staph not lugdunensis 10/21/18 22:00 Blood Blood Culture - Final Coag neg staph not lugdunensis
--- NOTE | 2018-10-27 15:14 | XRay Report ---
KUB HISTORY: Acute generalized abdominal pain with constipation constipation COMPARISON: CT abdomen and pelvis 10/21/2017. FINDINGS: The bowel gas pattern is non-obstructive. Vascular stent of the upper abdomen redemonstrate d. There is moderate volume of formed stool about the splenic flexure and proximal transverse colon. Stool volume is otherwise mild and within normal limits. Mild gaseous distention about large bowel wi thin the central abdomen. There is no organomegaly. Indeterminate calcifications are noted about the abdominal right upper quadrant, measuring up to 4 mm. No ureteral calculi are identified. No pneumop eritoneum or pneumatosis. Degenerative changes are noted about the spine, pelvis and hips. No fractur e. IMPRESSION: 1. Nonobstructive bowel gas pattern. 2. Moderate formed stool about the hepatic flexure and proximal transverse colon. Electronically signed by: Davion So M.D. 10/27/2018 3:13 PM
[2018-10-27] MEDS: LACTULOSE SYRUP 30 GM/45 ML UDP PO PRN (15:45)
--- NOTE | 2018-10-27 15:52 | Hospitalist Progress Note ---
Date of Service October 27, 2018 Assessment & Plan (1) Staphylococcal sepsis: see below (2) Bacteremia: coag negative staph in two sets of cultures no fevers since antibiotics started repeat cultures drawn 10/25 check echo to r/o vegetations, test performed, still no report, again, no murmurs on exam continue Rocephin if repeat cultures positive then port would need removed if cultures remain negative then would need 14 days of Rocephin from day of negative culture, which would be 10/25 (3) Acute urinary retention: Possibly secondary to mechanical obstruction from fecal retention/constipation. Rodriguez in place now draining clear, yellow urine -Maintain rodriguez catheter -BUN/Cr stable follow up with urology for voiding trial, can consider further work up plan to pull rodriguez tomorrow for voiding trial (4) Constipation: Patient has history of the same. -Colace 10mg po BID -Dulcolax 10mg [place] daily -Miralax daily -Tap water enema daily -Encourage po intake and fluids -Encourage ambulation -Optimize electrolytes as needed. moved bowels after rodriguez drained bladder now no BM for a few days, this is typical for him will use enema PRN will start Lactulose q8 PRN today, check KUB (5) DVT (deep venous thrombosis): Newly diagnosed DVT in LLE. Currently on Xarelto 15mg po BID -Continue Xarelto at home dose (6) DM w/o complication type II: PxV5D=5.3 on 07/15/18 increase Lantus to 15 units continue Novolog SS sugars better controlled on increased Lantus, monitor for hypoglycemia (7) Essential hypertension: Blood pressure well controlled at present -Continue Amlodipine, Benazepril -Continue to [facility] (8) Leukopenia: WBC improved to 6k today hold on Neupogen since he is recovering (9) Pancreatic cancer metastasized to liver: CT scan shows that two liver lesions are stable, no decreased in size but also not increased in number or size chemo is planned through March according to discussed quality of life vs quantity he is losing weight, not eating well due to taste issues Dr. Combs had discussed pausing chemo to improve nutrition status (10) Anemia: due to bone marrow suppression from chemotherapy Hb is 8.0 again today. continue to monitor Subjective patient laying in bed, says he has more energy today still concerned that he cannot move bowels, will try Lactulose discussed hydration, activity and fiber appetite still not great sugars are better controlled on the higher dose of Lantus participating with therapy, moved better than he thought he would reviewed labs, CBC stable, no growth on repeat blood cultures discussed with Dr. Hope Review of Systems All systems reviewed & are unremarkable except as noted in HPI & below Physical Exam Vital Signs (Past 24 Hours): Last Vital Signs Temp 36.2 C L 10/27/18 13:06 Pulse 95 H 10/27/18 11:43 Resp 20 10/27/18 11:43 BP 129/70 10/27/18 13:06 Pulse Ox 95 10/27/18 11:43 Constitutional: WD/WN, vitals as above Eyes: PERRL, conjunctivae normal, anicteric sclerae ENMT: external ear and nose normal, oropharynx normal Neck: trachea midline, no thyromegaly Respiratory: normal respiratory effort, lungs clear to auscultation Cardiovascular: RRR, no murmur, no edema Gastrointestinal (Abdomen): normal bowel sounds, soft, nontender, no hepatosplenomegaly Musculoskeletal: no cyanosis or clubbing, extremities motor strength 5/5 Skin: no rashes, warm and dry Neurologic: patellar DTR's 2+ bilat, sensation intact and PERRL, EOMI, accommodation nl, no face palsy, no dysarthria Psychiatric: A+Ox3, euthymic affect Lymphatic: no cervical or axillary lymphadenopathy Results & Data Laboratory Results Laboratory Results - last 24 hr 10/26/18 10/26/18 10/27/18 16:49 20:24 06:09 WBC 6.72 RBC 2.58 L Hgb 8.0 L Hct 24.3 L MCV 94.2 MCH 31.0 MCHC 32.9 RDW Std Deviation 55.6 H RDW Coeff of Darron 16.9 H Plt Count 171 MPV 8.7 Absolute Nucleated RBC 0.51 H Nucleated RBC % (auto) 7.6 Neutrophils % (Manual) 41.0 Lymphocytes % (Manual) 27.7 Monocytes % (Manual) 6.3 Eosinophils % (Manual) 1.8 Basophils % (Manual) 0.9 Metamyelocytes % (Man) 7.1 Myelocytes % (Man) 13.4 Promyelocytes % (Man) 1.8 Neutrophils # (Manual) 2.76 Total Absolute Neuts 2.76 Lymphocytes # (Manual) 1.86 Total Abs Lymphocytes 1.86 Monocytes # (Manual) 0.42 Eosinophils # (Manual) 0.12 Basophils # (Manual) 0.06 Metamyelocytes # (Man) 0.48 H Myelocytes # (Manual) 0.90 H Promyelocytes # (Man) 0.12 H Toxic Granulation 1+ Polychromasia 1+ Spherocytes Occasional Ovalocytes 1+ Sodium Potassium Chloride Carbon Dioxide Anion Gap BUN Creatinine Est Cr Clr Drug Dosing Est GFR ( Amer) Est GFR (Non-Af Amer) BUN/Creatinine Ratio Glucose POC Glucose 199 H 195 H Calcium 10/27/18 10/27/18 10/27/18 06:09 08:01 12:06 WBC RBC Hgb Hct MCV MCH MCHC RDW Std Deviation RDW Coeff of Darron Plt Count MPV Absolute Nucleated RBC Nucleated RBC % (auto) Neutrophils % (Manual) Lymphocytes % (Manual) Monocytes % (Manual) Eosinophils % (Manual) Basophils % (Manual) Metamyelocytes % (Man) Myelocytes % (Man) Promyelocytes % (Man) Neutrophils # (Manual) Total Absolute Neuts Lymphocytes # (Manual) Total Abs Lymphocytes Monocytes # (Manual) Eosinophils # (Manual) Basophils # (Manual) Metamyelocytes # (Man) Myelocytes # (Manual) Promyelocytes # (Man) Toxic Granulation Polychromasia Spherocytes Ovalocytes Sodium 140 Potassium 3.9 Chloride 107 Carbon Dioxide 29 Anion Gap 4.0 BUN 20 H Creatinine 0.98 Est Cr Clr Drug Dosing 65.6 Est GFR ( Amer) 90.2 Est GFR (Non-Af Amer) 77.8 BUN/Creatinine Ratio 20.5 H Glucose 155 H POC Glucose 170 H 177 H Calcium 7.1 L Medications Administered Current Inpatient Medications Acetaminophen (Tylenol) 650 mg PO Q4H PRN PRN Reason: pain/fever Stop: 11/21/18 02:46 Amlodipine Besylate (Norvasc) 5 mg PO [facility] Stop: 11/21/18 08:59 Last Admin: 10/27/18 08:50 Dose: 5 mg Documented by: Benazepril [facility] (L[facility]ensin) [facility] Stop: 11/21/18 08:59 Last Admin: 10/27/18 08:50 Dose: 20 mg Documented by: Bisacodyl (Dulcolax) 10 mg [place] DAILY PRN PRN Reason: Constipation Stop: 11/21/18 02:46 Last Admin: 10/26/18 15:53 Dose: 10 mg Documented by: Cyanocobalamin (Vitamin B-12) 1,000 mcg PO DAILY [facility] Stop: 11/21/18 08:59 Last Admin: 10/27/18 08:50 Dose: 1,000 mcg Documented by: Dextrose (Dextrose 50%) 25 - 50 ml IV UD PRN; Protocol PRN Reason: Hypoglycemia Protocol Stop: 11/21/18 02:46 Docusate Sodium (Colace) 100 mg PO BID [facility] Stop: 11/21/18 08:59 Last Admin: 10/27/18 08:50 Dose: 100 mg Documented by: Glucagon (Glucagen) 1 mg SQ UD PRN; Protocol PRN Reason: Hypoglycemia Protocol Stop: 11/21/18 02:46 Glucose (Glucose 40%) 15 - 30 gm PO UD PRN; Protocol PRN Reason: Hypoglycemia Protocol Stop: 11/21/18 02:46 Glucose (Dex4 Glucose) 4 - 8 tabs PO UD PRN; Protocol PRN Reason: Hypoglycemia Protocol Stop: 11/21/18 02:46 Ceftriaxone Sodium 2,000 mg/ (Dextrose) 70 mls @ 100 mls/hr IV DAILY [facility]; Protocol Stop: 11/08/18 11:59 Last Infusion: 10/27/18 09:57 Dose: Infused Documented by: Insulin Aspart (Novolog Flexpen) 0 units SC ACHS [facility] Stop: 11/21/18 07:29 Last Admin: 10/27/18 13:10 Dose: 16 units Documented by: Insulin Glargine (Lantus Solostar Pen) 15 units SQ HS [facility] Stop: 11/25/18 20:59 Last Admin: 10/26/18 21:15 Dose: 15 units Documented by: Lactulose (Chronulac) 30 gm PO Q8 PRN PRN Reason: Constipation Stop: 11/26/18 14:42 Last Admin: 10/27/18 15:45 Dose: 30 gm Documented by: Megestrol Acetate (Megace) 800 mg PO QAM [facility] Stop: 11/26/18 08:59 Last Admin: 10/27/18 08:50 Dose: 800 mg Documented by: Miscellaneous (Tap Water Enema) 1 ea KS DAILY [facility] Stop: 11/21/18 08:59 Last Admin: 10/27/18 09:01 Dose: Not Given Documented by: Miscellaneous (Carbohydrates For Hypoglycemia) 15 - 30 gm PO UD PRN PRN Reason: Hypoglycemia Treatment Stop: 11/21/18 02:46 Miscellaneous Medication (Medical Marijuana) 1 dose PO PRN PRN PRN Reason: PRN Stop: 11/24/18 12:37 Ondansetron HCl (Zofran) 8 mg PO QAM [facility] Stop: 11/21/18 08:59 Last Admin: 10/27/18 09:01 Dose: 8 mg Documented by: Oxycodone HCl (Roxicodone Immediate Rel) 10 mg PO Q4 PRN PRN Reason: Pain Stop: 11/05/18 02:46 Last Admin: 10/25/18 11:39 Dose: 10 mg Documented by: Polyethylene Glycol (Miralax Powder Packet) 17 gm PO DAILY [facility] Stop: 11/21/18 08:59 Last Admin: 10/27/18 08:59 Dose: 17 gm Documented by: Prochlorperazine (Compazine) 10 mg PO Q6H PRN PRN Reason: Nausea And Vomiting Stop: 11/21/18 02:46 Rivaroxaban (Xarelto) 15 mg PO BID [facility]; Protocol Stop: 11/09/18 21:01 Last Admin: 10/27/18 08:50 Dose: 15 mg Documented by: Rivaroxaban (Xarelto) 20 mg PO DAILY@1700 [facility] Stop: 12/10/18 16:59 (1) Constipation Constipation type: unspecified constipation type Qualified Code(s): K59.00 - Constipation, unspecified (2) DVT (deep venous thrombosis) DVT location: lower extremity Affected thrombotic vein of extremity: unspecified vein of extremity Chronicity: acute Laterality: left Qualified Code(s): I82.402 - Acute embolism and thrombosis of unspecified deep veins of left lower extremity (3) DM w/o complication type II Diabetes mellitus care home 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
[2018-10-27] MEDS: ACETAMINOPHEN 325 MG TAB PO PRN (18:48)
[2018-10-27] MEDS: INSULIN GLARGINE SOLOSTAR 100 UNITS/ML 3 ML PEN SQ SCH (22:05)
[2018-10-28] MEDS: BENAZEPRIL HCL 10 MG TAB PO SCH (09:16)
[2018-10-28] MEDS: MEGESTROL ACETATE 800 MG/20 ML UDP PO SCH (09:17)
[2018-10-28] MEDS: AMLODIPINE BESYLATE 5 MG TAB PO SCH (09:17)
[2018-10-28] MEDS: RIVAROXABAN 15 MG TAB PO SCH ×2 (09:17→21:07)
[2018-10-28] MEDS: CYANOCOBALAMIN 500 MCG TABLET (VITAMIN B-12) PO SCH (09:17)
[2018-10-28] MEDS: DOCUSATE SODIUM 100 MG CAP PO SCH ×2 (09:17→21:06)
[2018-10-28] MEDS: ONDANSETRON 8 MG TABLET PO SCH (09:18)
[2018-10-28] MEDS: POLYETHYLENE (MIRALAX) 17 GM PACK PO SCH (09:18)
[2018-10-28] MEDS: INSULIN ASPART 100 UNITS/ML 3 ML PEN SC SCH ×4 (09:19→21:06)
[2018-10-28] MEDS: cefTRIAXone SODIUM 2,000 MG in DEXTROSE 5% 50 ML IV SCH (09:27)
[2018-10-28] MEDS: LACTULOSE SYRUP 30 GM/45 ML UDP PO PRN (10:26)
[2018-10-28] MEDS: TAP WATER ENEMA PR SCH (10:26)
--- NOTE | 2018-10-28 10:41 | Hospitalist Progress Note ---
Date of Service October 28, 2018 Assessment & Plan (1) Staphylococcal sepsis: see below (2) Bacteremia: coag negative staph in two sets of cultures no fevers since antibiotics started repeat cultures drawn 10/25 check echo to r/o vegetations - no vegetations seen, no murmur on exam continue Rocephin 2gm IV daily until 11/08/18 which would be 14 days from negative culture (3) Acute urinary retention: Possibly secondary to mechanical obstruction from fecal retention/constipation. Rodriguez in place now draining clear, yellow urine d/c rodriguez today for voiding trial if he has retention again then would need home rodriguez and urology follow up (4) Constipation: Patient has history of the same. -Colace 10mg po BID -Dulcolax 10mg [place] daily -Miralax daily -Tap water enema daily -Encourage po intake and fluids -Encourage ambulation -Optimize electrolytes as needed. moved bowels after rodriguez drained bladder KUB shows normal bowel gas pattern has some formed stool in transverse colon and hepatic flexure will make lactulose scheduled at q8, discussed with RN (5) DVT (deep venous thrombosis): Newly diagnosed DVT in LLE. Currently on Xarelto 15mg po BID -Continue Xarelto at home dose (6) DM w/o complication type II: [id number]=6.3 on 07/15/18 increase Lantus to 15 units continue Novolog SS sugars better controlled on increased Lantus, monitor for hypoglycemia (7) Essential hypertension: Blood pressure well controlled at present -Continue Amlodipine, Benazepril -Continue to [facility] (8) Leukopenia: WBC improved yesterday will repeat tomorrow (9) Pancreatic cancer metastasized to liver: CT scan shows that two liver lesions are stable, no decreased in size but also not increased in number or size chemo is planned through March according to discussed quality of life vs quantity he is losing weight, not eating well due to taste issues Dr. Combs had discussed pausing chemo to improve nutrition status (10) Anemia: due to bone marrow suppression from chemotherapy Hb is 8.0 yesterday, repeat tomorrow according to PT/OT he can go home Subjective patient doing well, eating a little more still not moving bowels, spoke with RN, will give enema and make Lactulose scheduled will pull rodriguez today and see if he can void discussed with CM, plan for home Rocephin, already set up with [facility] no labs today, will check tomorrow repeat blood cultures from 10/25 showed no growth so can keep the port Review of Systems All systems reviewed & are unremarkable except as noted in HPI & below Gastrointestinal: + constipation Physical Exam Vital Signs (Past 24 Hours): Last Vital Signs Temp 37.2 C 10/28/18 08:22 Pulse 102 H 10/28/18 08:31 Resp 18 10/28/18 08:22 BP 128/69 10/28/18 08:22 Pulse Ox 94 10/28/18 09:34 Constitutional: WD/WN, vitals as above Eyes: PERRL, conjunctivae normal, anicteric sclerae ENMT: external ear and nose normal, oropharynx normal Neck: trachea midline, no thyromegaly Respiratory: normal respiratory effort, lungs clear to auscultation Cardiovascular: RRR, no murmur, no edema Gastrointestinal (Abdomen): normal bowel sounds, soft, nontender, no hepatosplenomegaly Musculoskeletal: no cyanosis or clubbing, extremities motor strength 5/5 Skin: no rashes, warm and dry Neurologic: patellar DTR's 2+ bilat, sensation intact and PERRL, EOMI, accommodation nl, no face palsy, no dysarthria Psychiatric: A+Ox3, euthymic affect Lymphatic: no cervical or axillary lymphadenopathy Results & Data Laboratory Results Laboratory Results - last 24 hr 10/27/18 10/27/18 10/27/18 12:06 16:54 20:18 POC Glucose 177 H 227 H 157 H 10/28/18 07:28 POC Glucose 139 H Diagnostic Findings KUB HISTORY: Acute generalized abdominal pain with constipation constipation COMPARISON: CT abdomen and pelvis 10/21/2017. FINDINGS: The bowel gas pattern is non-obstructive. Vascular stent of the upper abdomen redemonstrated. There is moderate volume of formed stool about the splenic flexure and proximal transverse colon. Stool volume is otherwise mild and within normal limits. Mild gaseous distention about large bowel within the central abdomen. There is no organomegaly. Indeterminate calcifications are noted about the abdominal right upper quadrant, measuring up to 4 mm. No ureteral calculi are identified. No pneumoperitoneum or pneumatosis. Degenerative changes are noted about the spine, pelvis and hips. No fracture. IMPRESSION: 1. Nonobstructive bowel gas pattern. 2. Moderate formed stool about the hepatic flexure and proximal transverse colon. Medications Administered Current Inpatient Medications Acetaminophen (Tylenol) 650 mg PO Q4H PRN PRN Reason: pain/fever Stop: 11/21/18 02:46 Last Admin: 10/27/18 18:48 Dose: 650 mg Documented by: Amlodipine Besylate (Norvasc) 5 mg PO QAM [facility] Stop: 11/21/18 08:59 Last Admin: 10/28/18 09:17 Dose: 5 mg Documented by: Benazepril HCl (Lotensin) 20 mg PO QAM [facility] Stop: 11/21/18 08:59 Last Admin: 10/28/18 09:16 Dose: 20 mg Documented by: Bisacodyl (Dulcolax) 10 mg [place] DAILY PRN PRN Reason: Constipation Stop: 11/21/18 02:46 Last Admin: 10/26/18 15:53 Dose: 10 mg Documented by: Cyanocobalamin (Vitamin B-12) 1,000 mcg PO DAILY [facility] Stop: 11/21/18 08:59 Last Admin: 10/28/18 09:17 Dose: 1,000 mcg Documented by: Dextrose (Dextrose 50%) 25 - 50 ml IV UD PRN; Protocol PRN Reason: Hypoglycemia Protocol Stop: 11/21/18 02:46 Docusate Sodium (Colace) 100 mg PO BID [facility] Stop: 11/21/18 08:59 Last Admin: 10/28/18 09:17 Dose: 100 mg Documented by: Glucagon (Glucagen) 1 mg SQ UD PRN; Protocol PRN Reason: Hypoglycemia Protocol Stop: 11/21/18 02:46 Glucose (Glucose 40%) 15 - 30 gm PO UD PRN; Protocol PRN Reason: Hypoglycemia Protocol Stop: 11/21/18 02:46 Glucose (Dex4 Glucose) 4 - 8 tabs PO UD PRN; Protocol PRN Reason: Hypoglycemia Protocol Stop: 11/21/18 02:46 Ceftriaxone Sodium 2,000 mg/ (Dextrose) 70 mls @ 100 mls/hr IV DAILY [facility]; Protocol Stop: 11/08/18 11:59 Last Infusion: 10/28/18 10:23 Dose: Infused Documented by: Insulin Aspart (Novolog Flexpen) 0 units SC ACHS [facility] Stop: 11/21/18 07:29 Last Admin: 10/28/18 09:19 Dose: 7 units Documented by: Insulin Glargine (Lantus Solostar Pen) 15 units SQ HS [facility] Stop: 11/25/18 20:59 Last Admin: 10/27/18 22:05 Dose: 15 units Documented by: Lactulose (Chronulac) 30 gm PO Q8 [facility] Stop: 11/27/18 13:59 Megestrol Acetate (Megace) 800 mg PO QAM [facility] Stop: 11/26/18 08:59 Last Admin: 10/28/18 09:17 Dose: 800 mg Documented by: Miscellaneous (Tap Water Enema) 1 ea [place] DAILY [facility] Stop: 11/21/18 08:59 Last Admin: 10/28/18 10:26 Dose: 1 ea Documented by: Miscellaneous (Carbohydrates For Hypoglycemia) 15 - 30 gm PO UD PRN PRN Reason: Hypoglycemia Treatment Stop: 11/21/18 02:46 Miscellaneous Medication (Medical Marijuana) 1 dose PO PRN PRN PRN Reason: PRN Stop: 11/24/18 12:37 Ondansetron HCl (Zofran) 8 mg PO QAM [facility] Stop: 11/21/18 08:59 Last Admin: 10/28/18 09:18 Dose: 8 mg Documented by: Oxycodone HCl (Roxicodone Immediate Rel) 10 mg PO Q4 PRN PRN Reason: Pain Stop: 11/05/18 02:46 Last Admin: 10/25/18 11:39 Dose: 10 mg Documented by: Polyethylene Glycol (Miralax Powder Packet) 17 gm PO DAILY [facility] Stop: 11/21/18 08:59 Last Admin: 10/28/18 09:18 Dose: 17 gm Documented by: Prochlorperazine (Compazine) 10 mg PO Q6H PRN PRN Reason: Nausea And Vomiting Stop: 11/21/18 02:46 Rivaroxaban (Xarelto) 15 mg PO BID [facility]; Protocol Stop: 11/09/18 21:01 Last Admin: 10/28/18 09:17 Dose: 15 mg Documented by: Rivaroxaban (Xarelto) 20 mg PO DAILY@1700 [facility] Stop: 12/10/18 16:59 (1) Constipation Constipation type: unspecified constipation type Qualified Code(s): K59.00 - Constipation, unspecified (2) DVT (deep venous thrombosis) DVT location: lower extremity Affected thrombotic vein of extremity: unspecified vein of extremity Chronicity: acute Laterality: left Qualified Code(s): I82.402 - Acute embolism and thrombosis of unspecified deep veins of left lower extremity (3) DM w/o complication type II Diabetes mellitus [facility] insulin use: with [facility]ci use Qualified Code(s): E11.9 - Type 2 diabetes mellitus without complications; 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
--- NOTE | 2018-10-28 10:42 | Progress Note ---
DATE: 10/28/2018 DIAGNOSES: 1. Staphylococcal bacteremia. 2. Acute urinary retention. 3. Constipation. 4. Lower extremity deep venous thrombosis. 5. Type 2 diabetes mellitus. 6. Metastatic pancreatic cancer. SUBJECTIVE: The patient was seen and examined at bedside today. Seems to be making slow, but steady clinical progress. He is receiving intravenous Rocephin and plans are underway to progress towards discharge with outpatient antibiotics. He continues to [place] with acute urinary retention that I believe is attributable to constipation. I can see constipation has been addressed aggressively and applaud the effort. We will continue to hold chemotherapy until the patient is fully recovered. Nursing reports no overnight difficulties otherwise. PHYSICAL EXAMINATION: GENERAL: A very pleasant 68-year-old gentleman, in no acute distress. VITAL SIGNS: Temperature 37.2, pulse 102, respiratory rate 18, blood pressure 128/69. SKIN: Warm, dry, noncyanotic without petechia, rash or ecchymosis. HEENT: Oral mucosa without erythema or ulceration. NECK: Supple. HEART: Regular rate and rhythm. No clicks, rubs, murmurs or gallops. LUNGS: Clear to auscultation bilaterally. ABDOMEN: Soft, nontender, nondistended. EXTREMITIES: No clubbing, cyanosis or edema. NEUROLOGIC: Grossly intact. LABORATORY DATA: These are from 10/27/2018. WBC count 6720, hemoglobin 8.0, platelet count 171,000. Chemistries from yesterday: Sodium 140, potassium 3.9, chloride 107, carbon dioxide 29, creatinine 0.98, BUN 20, calcium is decreased at 7.1. IMPRESSION: 1. Staphylococcal bacteremia. 2. Acute urinary retention. 3. Constipation. 4. Hypoalbuminemia. 5. Deep venous thrombosis. 6. Metastatic pancreatic cancer. PLAN: Appreciate the hospitalist's medical management of the patient. He does seem to be making slow but steady progress towards discharge. He still struggles with constipation and again I appreciate the effort to try to get him to move his bowels. I understand from nursing that trying to arrange for outpatient antimicrobials. We will make arrangements for the patient to return to [facility] and only resume chemotherapy when he is completely stable medically. I have nothing further to add as I agree with current management. Thank you very much for assisting me in the care of this very pleasant gentleman.
[2018-10-28] MEDS ORDERED: LACTULOSE SYRUP 30 GM/45 ML UDP PO SCH (14:00)
--- NOTE | 2018-10-28 14:03 | Infectious Disease Progress Nt ---
Date of Service October 28, 2018 Assessment & Plan (1) Staphylococcal sepsis: no clinical signs of port infection, continue rocpehin will repeat blood cultures, if + will likely need port removal but are negative to date. echo negative and repeat blood cultures remain negative would give 14 days IV Rocephin from first negative cultures, stop date 11/08, will need weekly cbc,cmp while on abx. Subjective on rocephin, tolerating well. repeat blood cultures 10/25 negative to date echo pending, wbc 6.7 today. echo negative for vegetation. Physical Exam Vital Signs (Past 24 Hours): Last Vital Signs Temp 36.6 C 10/28/18 11:06 Pulse 100 H 10/28/18 11:06 Resp 16 10/28/18 11:06 BP 105/59 L 10/28/18 11:06 Pulse Ox 90 10/28/18 11:06 Results & Data Laboratory Results Microbiology 10/25/18 12:14 Blood Blood Culture - Preliminary No growth to date. 10/25/18 11:59 Blood Blood Culture - Preliminary No growth to date. 10/21/18 Unknown Blood Blood Culture - Final Coag neg staph not lugdunensis 10/21/18 22:00 Blood Blood Culture - Final Coag neg staph not lugdunensis
[2018-10-28] MEDS: ACETAMINOPHEN 325 MG TAB PO PRN (21:05)
[2018-10-28] MEDS: INSULIN GLARGINE SOLOSTAR 100 UNITS/ML 3 ML PEN SQ SCH (21:07)
[2018-10-29 05:50] LABS: Hemoglobin 7.6 g/dL (14.0-18.0); Mean Corpuscular Hgb Conc 31.7 g/dL (32-36); Mean Corpuscular Volume 96.4 fL (80-100); Mean Platelet Volume 8.6 fL (7.4-10.4); Nucleated RBC # (auto) 0.54 K/uL (0-0); Nucleated RBC % (auto) 5.6 %; Platelet Count 195 K/uL (130-400); RDW Coefficient of Variation 18.7 % (11.5-14.5); RDW Standard Deviation 61.6 fL (36.4-46.3); Red Blood Count 2.49 M/uL (4.7-6.1); White Blood Count 9.61 K/uL (4.8-10.8)
[2018-10-29 06:25] LABS: BUN Creatinine Ratio 19.6 (10-20); Calcium 7.2 mg/dl (8.5-10.1); Creatinine Clr Calc Pharmacy 94.4 ml/min; Est GFR (African American) 108.3; Est GFR (Non-African American) 93.5; Potassium 3.2 mmol/L (3.5-5.1)
[2018-10-29 06:34] LABS: ALC (manual) 0.26 K/uL (1.2-3.4); Eosinophils # (manual) 0.09 K/uL (0-0.5); Eosinophils % (manual) 0.9 %; Lymphocytes # (manual) 0.26 K/uL (1.2-3.4); Lymphocytes % (manual) 2.7 %; Metamyelocytes % (manual) 6.2 %; Monocytes % (manual) 6.2 %; Myelocytes % (manual) 17.7 %; Neutrophils % (manual) 66.3 %; Polychromasia 1+
[2018-10-29] MEDS ORDERED: POTASSIUM CHLORIDE PWD 20 MEQ PACK PO SCH (09:00)
[2018-10-29] MEDS: INSULIN ASPART 100 UNITS/ML 3 ML PEN SC SCH ×3 (09:06→17:36)
[2018-10-29] MEDS: TAP WATER ENEMA PR SCH (09:11)
[2018-10-29] MEDS: POLYETHYLENE (MIRALAX) 17 GM PACK PO SCH (09:12)
[2018-10-29] MEDS: ONDANSETRON 8 MG TABLET PO SCH (09:13)
[2018-10-29] MEDS: DOCUSATE SODIUM 100 MG CAP PO SCH (09:13)
[2018-10-29] MEDS: RIVAROXABAN 15 MG TAB PO SCH (09:13)
[2018-10-29] MEDS: CYANOCOBALAMIN 500 MCG TABLET (VITAMIN B-12) PO SCH (09:13)
[2018-10-29] MEDS: AMLODIPINE BESYLATE 5 MG TAB PO SCH (09:14)
[2018-10-29] MEDS: MEGESTROL ACETATE 800 MG/20 ML UDP PO SCH (09:14)
[2018-10-29] MEDS: BENAZEPRIL HCL 10 MG TAB PO SCH (09:14)
[2018-10-29] MEDS: cefTRIAXone SODIUM 2,000 MG in DEXTROSE 5% 50 ML IV SCH (10:46)
--- NOTE | 2018-10-29 15:12 | Discharge Summary ---
Date of Service October 29, 2018 Admission HPI Per Admitting Provider Very pleasant 68yo male with history of pancreatic CA on chemotherpy (last received on 10/19/18), recently diagnosed DVT on Xarelto presenting with abdominal pain and constipation. Patient reports no BM x 5 days, typically has a daily BM. Also with decreased UOP, poor po intake and abdominal pain. Rodriguez catheter was placed in ER with large amount of UOP, improvement in abdominal pain. No additional complaints at this time. Admission Exam Per Admitting Provider General: patient resting comfortably, NAD, non-toxic in appearance, AA&O x 4 Skin: warm, dry, intact, no rashes or lesions HEENT: NC/AT, PERRL, EOMI, anicteric sclera, conjunctiva without injection, external ear normal to inspection and nontender, nares patent, moist mucus membranes, dentition intact, no oropharyngeal lesions, neck supple, trachea midline, no LAD, no thyromegaly, no JVD Heart: +S1/S2, regular, no m/r/g Lungs: equal air entry bilaterally, no rales/rhonchi/wheezes Abd: +BS, soft, NT/ND, no masses/organomegaly/ascites Ext: warm, 2+ pulses in UE/LE bilaterally, no clubbing/cyanosis, trace edema RLE, LLE more swollen, red, tender Neuro: nonfocal, patient AA&O x 4, speech intact, no facial droop, moving all extremities on command with equal strength 5/5 Principal Diagnosis Staphylococcal bacteremia Discharge Exam Constitutional WD/WN, vitals as above Eyes PERRL, conjunctivae normal, anicteric sclerae ENMT external ear and nose normal, oropharynx normal Neck trachea midline, no thyromegaly Respiratory normal respiratory effort, lungs clear to auscultation Cardiovascular RRR, no murmur, no edema Gastrointestinal (Abdomen) normal bowel sounds, soft, nontender, no hepatosplenomegaly Musculoskeletal no cyanosis or clubbing, extremities motor strength 5/5 Skin no rashes, warm and dry Neurologic patellar DTR's 2+ bilat, sensation intact and PERRL, EOMI, accommodation nl, no face palsy, no dysarthria Psychiatric Orientation: alert, oriented x 3 and cooperative Mood: + depressed mood Lymphatic no cervical or axillary lymphadenopathy Discharge Data Allergies Allergy/AdvReac Type Severity Reaction Status Date / Time No Known Allergies Allergy Verified 10/21/18 21:22 Consultations 10/23/18 09:16 Consult Oncology Routine 10/24/18 14:51 Consult Infectious Diseases Routine 10/29/18 12:15 Consult Palliative Care Routine Ordered Studies 10/21/18 21:39 CT abd pelvis IV con only Stat Hospital Course (1) Staphylococcal sepsis: see below (2) Bacteremia: coag negative staph in two sets of cultures no fevers since antibiotics started repeat cultures drawn 10/25 check echo to r/o vegetations - no vegetations seen, no murmur on exam repeat blood cultures negative at 4 days continue Rocephin 2gm IV daily until 11/08/18 which would be 14 days from negative culture (3) Acute urinary retention: Possibly secondary to mechanical obstruction from fecal retention/constipation. Rodriguez in place now draining clear, yellow urine d/c rodriguez today for voiding trial could not void for 10 hours, new rodriguez placed follow up with urology arranged (4) Constipation: Patient has history of the same. -Colace 10mg po BID -Dulcolax 10mg UT daily -Miralax daily -Tap water enema daily -Encourage po intake and fluids -Encourage ambulation -Optimize electrolytes as needed. moved bowels after rodriguez drained bladder initially at time of admission KUB shows normal bowel gas pattern has some formed stool in transverse colon and hepatic flexure moved bowels again, several times with Lactulose will provide script to use Lactulose PRN for constipation at home, instructed patient and he knows to stay well hydrated, use fiber supplement, try to stay active by walking around the house (5) DVT (deep venous thrombosis): Newly diagnosed DVT in LLE, was already started on Xarelto as outpatient completed the 15mg BID dosing, transition to 20mg daily now (6) DM w/o complication type II: [id number]=9.3 on 07/15/18 increase Lantus to 15 units continue Novolog SS sugars better controlled on increased Lantus, monitor for hypoglycemia will continued increased dose on discharge (7) Essential hypertension: Blood pressure well controlled at present -Continue Amlodipine, Benazepril -Continue to montior (8) Leukopenia: resolved, WBC normal for several days (9) Anemia: due to bone marrow suppression from chemotherapy Hb is 7.9 on day of discharge, has hovered between 7.5 and 8.2 during admission no transfusions required (10) Pressure ulcer of right buttock, stage 2: present on arrival treated with wound care consult needs better nutrition, increased activity (11) Severe protein-calorie malnutrition: due to poor intake related to chemotherapy, has no taste nutritional supplements, coke still cleaner consult started on Megace in addition to taking medical marijuana (12) Pancreatic cancer metastasized to liver: CT scan shows that two liver lesions are stable, no decreased in size but also not increased in number or size chemo is planned through March according to discussed quality of life vs quantity he is losing weight, not eating well due to taste issues Dr. Combs had discussed pausing chemo to improve nutrition status palliative care consult prior to discharge, wants to remain Level 1, full code did not want to fill out POLST yet wants to take a break from chemo, realizes that he is getting weaker and malnourished long talk with patient's about poor prognosis given his weakness, poor nutrition, recent infection and the diagnosis of metastatic pancreatic cancer they will follow up with Dr. Combs after November 08 PT/OT evaluated patient, says he is strong enough to go home with family supervision, with him 02/03 home nursing, home PT/OT set up, check labs next week Total Time Total Time Spent Total Time Spent (In Minutes): 60 minutes Total Time Includes: Examination of the Patient, Discharge Planning, Medication Reconciliation, Communication With Other Providers (Dr. Combs, Dr. Hope, palliative care with Kathryn Mullins and Dr. Mcdonald) and Other (long talk with patients ) Discharge Plan Discharge Items Patient Disposition: Home - Home Health Services Reason For Visit: URINARY RETENTION, CONSTIPATION Discharge Diagnosis: Staph bacteremia Urinary retention, constipation, anemia Pancreatic cancer with liver metastases Severe protein calorie malnutrition Condition: Fair Discharge Goals: Decrease discomfort, Improve function and Increase independence Activity: Per 'Additional Instructions' section Lifting: None Bathing: No limitations Bathing Comment: keep port dry Exercise/Sports: As tolerated Driving/Machine Use Comment: no driving Non-emergency contact: Primary Care Provider and Oncologist Call non-emergency contact if: you have any medication questions, your symptoms worsen and you have a fever Follow-up/Referrals: [facility] Group] (Please, follow up with [facility]. *The nurse will call you with the appointment information. This office is located at [address] [facility] in [place]. If you have any questions, call the office at [phone].) Carl Lucero MD [Primary Care Provider] - 11/08/18 11:00 am (Please, follow up with Dr. Carl Lucero in the [place] [facility] on ThursdayNovember 08 at 11:00 am. *If you need to change this appointment, call the office at [phone].) Adam Combs DO [Physician] - 11/02/18 9:50 am (Please, follow up at [facility] on ThursdayNovember 02 at 9:50 am. *If you need to change this appointment, call the office at [phone].) Diet: Carb Consistent or DM2 Other Ambulatory Orders: Basic Metabolic Panel (Routine) Timeframe: 1 Week Location: Determined by Patient Ordered By: Cody Carlisle Complete Blood Count with Diff (Routine) Timeframe: 1 Week Location: Determined by Patient Ordered By: Cody Carlisle Add Provider Instructions: Medications: - ROCEPHIN (CEFTRIAXONE): 2gm IV daily until 11/08, next dose due tomorrow, this is antibiotic for staph infection - LACTULOSE: use for constipation, can take three times a day as needed, back off if stools are loose - LANTUS: dose increased to 15 units from 8 units for better glucose control - MEGESTROL: appetite stimulant, continue to take daily - MIRALAX: additional laxative to keep bowels moving, take daily Staph bacteremia: responded well to antibiotics repeat blood cultures clear, ID recommends 14 days total since negative culture which would be until 11/08 set up for home IV antibiotics through port Metastatic pancreatic cancer: hold on chemotherapy for time being Dr. Combs would like you to regain some strength and improve nutrition prior to seeing him in the office he will see you the first week of November if you do not hear from his office then call them by the end of next week Pancytopenia: low blood counts due to chemotherapy needs to be monitored weekly, script for blood draws on Thursday/Thursday every week home nursing can perform draws Severe protein calorie malnutrition: continue to try to eat more, use supplements continue on Megace and can ask for further medical marijuana to improve appetite hope is that taste will improve the further out you are from chemo Weakness: multiple reasons, chemo, cancer, poor nutrition, anemia and just generalized de-conditioning recommend home PT/OT Urinary retention: keep in rodriguez until you are seen by urology in the office Constipation: slow transit, no evidence of bowel obstruction continue Colace, Miralax daily, stay well hydrated, recommend Metamucil or other fiber supplement daily use Lactulose three times a day if you don't move bowels for two days, take the Lactulose until you move bowels As we discussed, treatment at this time is palliative, chemotherapy intended to stop progression of cancer however, you and your should continue to discuss quality of life and what your goals are going to be in the short term chemo is on hold and you need to improve nutrition and strength, monitor blood counts and treat infection watch for fever (temperature above 100.4), lethargy, altered mental status, can return to hospital Home health services for Nursing an Physical therapy Prescriptions: New polyethylene glycol 3350 [Miralax] 17 gram Powder In Packet 17 g PO DAILY 30 Days Qty: 30 RF: 0 Lantus Solostar U-100 Insulin 100 unit/mL (3 mL) Insulin Pen 15 unit subcut HS 30 Days Qty: 4.5 RF: 0 megestrol 400 mg/10 mL (10 mL) suspension 10 ml PO QAM 30 Days Qty: 300 RF: 0 lactulose 10 gram/15 mL solution 10 gm PO TID PRN (Reason: constipation) Qty: 480 RF: 1 ceftriaxone 2 gram recon soln 1 gm IV DAILY Qty: 10 RF: 0 Continued Xarelto 15 mg tablet 15 mg PO BID RF: 0 Xarelto 20 mg tablet 20 mg PO DAILY RF: 0 amlodipine-benazepril 5-20 mg Capsule 1 cap PO QAM RF: 0 cyanocobalamin (vitamin B-12) [Vitamin B-12] 1,000 mcg Tablet 1,000 mcg PO QAM RF: 0 Novolog Flexpen U-100 Insulin 100 unit/mL insulin pen subcut TIDM PRN (Reason: sliding scale) RF: 0 aspirin [Aspir-81] 81 mg Tablet,Delayed Release (Dr/Ec) 81 mg PO QAM RF: 0 oxycodone 10 mg tablet 10 mg PO Q4 PRN (Reason: Pain) RF: 0 docusate sodium [Colace] 100 mg capsule 100 mg PO QAM RF: 0 ondansetron HCl [Zofran] 8 mg tablet 8 mg PO QAM RF: 0 prochlorperazine maleate [Compazine] 10 mg tablet 10 mg PO Q6H PRN (Reason: Nausea And Vomiting) RF: 0 Discontinued Basaglar KwikPen U-100 Insulin 100 unit/mL (3 mL) Insulin Pen 8 units SUBCUT HS RF: 0 Stand-Alone Forms: [facility]/Other Patient Handouts: Catheter Bag Urinary Empty Clean, Catheter Indwelling Urinary Dc, Leg Bag Care Dc Discharge Orders: Discharge Order (Routine); Ordered 10/29/18 Ordered By: Cody Carlisle Admission Data Admit Date/Time: 10/22/18 01:40 Attending Provider: Cody Carlisle Admit Provider: Monica Mandujano Primary Care Provider: Carl Lucero Other Providers: Adam Combs V ; Lisseth Hope ; Moira Mcdonald Service: Medical Other Interventions: Discharge Summary Assessment (RN) Last Done: 10/29/18 15:59 DC Date/Time DO NOT enter until pt leaves facility: 10/29/18 18:00
--- NOTE | 2018-10-29 15:12 | Palliative Care Consultation ---
Date of Consultation October 29, 2018 Assessment & Plan (1) Goals of care, counseling/discussion: -68 year old male with stage IV pancreatic cancer with mets to the liver, presented to hospital a week ago for constipation. He is currently undergoing chemotherapy for his cancer under the care of Dr. Combs. He has had 9/24 doses of chemo and has been feeling very run-down lately-- weight loss, fatigue, poor appetite. While in hospital, he and his have been commenting on their exhaustion and frustration with the stress of the disease. Palliative care is consulted to provide supportive care. -Met with patient and his , Radha, in room 412. Patient is awake, alert and oriented but very flat and quiet. Patient did admit to fatigue and being frustrated with poor appetite. He just started Megace a few days ago and is hoping that will help. Patient's did most of the talking. She was appropriately tearful, but very supportive of her . -The plan is to continue on with cancer treatment. Patient wants to remain a full code. He does not have a living will and we talked about getting one completed while he is well enough to do so. They agreed this would be a good idea. He has made arrangements already. -Talked about some things to lighten the load of housework at home. Some family and friends have been offering to help. -Introduced idea of outpatient palliative care for symptom management if patient is interested. Gave them Dr. Mcdonald's info. -Patient to be discharged home soon, today or tomorrow. will be administering IV abx from home. Case management following. (2) Staphylococcal sepsis: (3) Bacteremia: (4) Constipation: Constipation type: unspecified constipation type Qualified Code(s): K59.00 - Constipation, unspecified (5) Pancreatic cancer metastasized to liver: History of Present Illness Attending Physician: Cody Carlisle DO History of Present Illness This 68 year old male with stage IV pancreatic cancer with mets to the liver, presented to hospital a week ago for constipation. He is currently undergoing chemotherapy for his cancer under the care of Dr. Combs. He has had 9/24 doses of chemo and has been feeling very run-down lately-- weight loss, fatigue, poor appetite. While in hospital, he and his have been commenting on their exhaustion and frustration with the stress of the disease. Palliative care is consulted to provide supportive care. Thank you kindly for this consult. Allergies Allergy/AdvReac Type Severity Reaction Status Date / Time No Known Allergies Allergy Verified 10/21/18 21:22 Home Medications Home Medications Medication Instructions Recorded Confirmed Type amlodipine-benazepril 1 cap PO QAM 04/20/18 10/21/18 History cyanocobalamin (vitamin B-12) 1,000 mcg PO QAM 07/14/18 10/21/18 History [Vitamin B-12] Basaglar KwikPen U-100 Insulin 8 units SUBCUT HS 07/20/18 10/21/18 History insulin aspart U-100 [Novolog 0 unit SUBCUT TIDM PRN 07/22/18 10/21/18 History Flexpen U-100 Insulin] aspirin [Aspir-81] 81 mg PO QAM 08/29/18 10/21/18 History docusate sodium [Colace] 100 mg PO QAM 08/29/18 10/21/18 History ondansetron HCl [Zofran] 8 mg PO QAM 08/29/18 10/21/18 History oxycodone 10 mg PO Q4 PRN 08/29/18 10/21/18 History prochlorperazine maleate 10 mg PO Q6H PRN 08/29/18 10/21/18 History [Compazine] rivaroxaban [Xarelto] 15 mg PO BID 10/21/18 10/21/18 History rivaroxaban [Xarelto] 20 mg PO DAILY 10/21/18 10/21/18 History Patient History Medical History Constipation Acute kidney injury Hyperglycemia due to type 2 diabetes mellitus Hospital-acquired pneumonia Abdominal pain Sepsis (Acute) Leukocytosis (Acute) Lactic acidosis (Acute) DVT prophylaxis Diabetes mellitus HTN (hypertension) Pancreatic cancer Common bile duct obstruction secondary to biliary stent Colon cancer screening Elevated LFTs Epigastric abdominal pain DVT prophylaxis Choledocholithiasis (Acute) Epigastric abdominal pain (Acute) Encounter for pre-operative examination Corneal abrasion of both eyes Acute pancreatitis Pancreatic cancer metastasized to liver Hyperlipidemia Essential hypertension DM w/o complication type II GRICELDA (obstructive sleep apnea) Acute urinary retention (Inactive) Constipation (Inactive) Dysphagia (Inactive) Epigastric abdominal pain (Inactive) Hypoglycemia (Inactive) Neutropenia (Inactive) Pancreatic cancer (Inactive) Basal cell carcinoma (BCC) of forehead S/P EXCISION Constipation Diabetes mellitus, type 2 History of pancreatitis RECENT; 07/2018 FELT 2/2 CBD/PANCREATIC DUCT STRICTURES PER [facility] HOSPITALIST NOTE- SURGEON AWARE Hyperlipidemia Hypertension Osteoarthritis Pancreatic cancer WITH LIVER METS Peripheral neuropathy left leg -sore to touch; no difficulty walking Sleep apnea CPAP 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 S/P MOHS PROCEDURE Surgical History H/O Moh's micrographic surgery for skin cancer H/O carpal tunnel repair B/L History of ERCP ERCP WITH BILIARY STENT PLACEMENT/EUS/SPHINCTEROTOMY= 07/14/18= GRADE VIEW 1, MAC 3, ETT 7.5 AT [facility] History of colonoscopy History of tonsillectomy History of tooth extraction WISDOM TEETH Family History Mother Gastric cancer Brother Gastric cancer Social History Communication Ability: Effective Beliefs That Will Affect Care: None marital status: Current Living Situation: Spouse Current Living Situation Comment: House current occupational status: retired 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, was also previously in the [employer] Safe at Home: Yes Smoking Status: Never smoker Hx Alcohol Use: No Hx Substance Use: No Review of Systems Constitutional: + fatigue, + weakness, + anorexia and + weight loss (50 lbs in last six months or so) Respiratory: no cough and no dyspnea Cardiovascular: no chest pain and no edema Gastrointestinal: + constipation; no abdominal pain, no nausea and no vomiting Neurologic: no confusion Psychiatric: + depression; no anxiety Physical Exam Vital Signs (Past 24 Hours): Last Vital Signs Temp 37.1 C 10/29/18 15:02 Pulse 89 10/29/18 15:02 Resp 18 10/29/18 15:02 BP 102/63 10/29/18 15:02 Pulse Ox 93 10/29/18 15:02 Constitutional: well developed and well nourished; no acute distress ENMT: external ear and nose normal, oropharynx normal Ears: no hearing impairment Neck: normal visual inspection Respiratory: normal respiratory effort, lungs clear to auscultation Cardiovascular: RRR, no murmur, no edema Gastrointestinal (Abdomen): normal bowel sounds, soft, nontender, no hepatosplenomegaly Skin: no rashes, warm and dry Neurologic: awake; not confused Psychiatric: Orientation: alert and oriented x 3 Affect: + flat affect Time Spent Midlevel 70 minutes with >50% of time spent at bedside with patient and discussing condition and GOC.
--- NOTE | 2018-11-02 12:54 | Coding Query ---
SEPSIS To promote full compliance with coding requirements relating to patient care, physician participation is requested in all cases of explosives handler uncertainty. Please assist us with the question(s) below: In responding to this query, please exercise your independent professional judgement. The fact that a question is asked does not imply that any particular answer is desired or expected. We appreciate your clarification on this issue. The medical record reflects the following clinical findings: Sepsis /Bacteremia . Pt admitted with fever and constipation. ____ #1 ( )Bacteremia (Nonspecific laboratory finding of bacteria in the blood) Specify Organism ( ) Present on Admission ( ) Not present on admission ( ) Unable to clinically determine ( ) Septicemia (Systemic disease associated with the presence of pathogenic microorganisms in the blood): Specify Organism ( ) Present on Admission ( ) Not present on admission ( ) Unable to clinically determine ( ) Sepsis Specify Organism Specify Associated Condition/Diagnosis ( ) Present on Admission ( ) Not present on admission ( ) Unable to clinically determine (x ) Severe Sepsis (Sepsis associated with acute organ dysfunction) Specify Organism coag negative staph Specify Associated Condition/Diagnosis JOYCE, POA ( x) Present on Admission ( ) Not present on admission ( ) Unable to clinically determine ( ) Septic Shock (Severe sepsis with acute circulatory failure, unexplained by other causes) ( ) Present on Admission () Not present on admission ( ) Unable to clinically determine () Other, patient has: #2 Please document the etiology of the patient's Sepsis/Bacteremia . Thank you . DAVID Mishra [facility] Physician Response: MTDD
[2018-11-10] MEDS ORDERED: RIVAROXABAN 20 MG TAB PO SCH (17:00)
== END 2018-10-29 18:00 | disposition home health service (06) | DRG 871 ==
LOC: ED 19:51 → 4E 10-22 01:40 → SUATTDRO 10-22 01:40 → 4E 10-22 02:23

== ENCOUNTER 2018-11-26 18:12 | Inpatient (IN) ==
[2018-11-26] MEDS: NOREPINEPHRINE BIT INJ 8 MG in DEXTROSE 5% 500 ML IV SCH ×2 (18:36→23:41)
[2018-11-26] MEDS ORDERED: PIPERACILLIN/TAZOBACTAM 4.5 GM/120 ML BAG IV ONE (18:37)
[2018-11-26] MEDS ORDERED: VANCOMYCIN CONSULT ACTIVE PRN ×2 (18:37→20:05)
[2018-11-26] MEDS ORDERED: VANCOMYCIN HCL 1,750 MG in SODIUM CHLORIDE 0.9% 500 ML IV ONE (18:37)
[2018-11-26] MEDS ORDERED: PIPERACILL/TAZOBAC CONSULT ACTIVE PRN ×2 (18:37→20:05)
--- NOTE | 2018-11-26 18:42 | XRay Report ---
XR chest 1V portable CLINICAL HISTORY: Shortness of breath COMPARISON STUDY: 11/03/2018 FINDINGS: The heart is normal in size. There is mild aortic tortuosity/ectasia. There is no failure. There is no focal pulmonary consolidation. There are no pleural effusions. There is no pneumothorax. There is a right-sided central venous catheter.[ IMPRESSION: No active disease in the chest. Electronically signed by: Jose Montalvo M.D. 11/26/2018 6:41 PM
[2018-11-26 18:46] LABS: iSTAT Arterial Blood Gas HCO3 12 meg/L (19-24); iSTAT Arterial Blood Gas pCO2 18 mmHg (35-46); iSTAT Arterial Blood Gas pH 7.42 (7.35-7.45); iSTAT Carbon Dioxide 12 mEq/l (24-31); iSTAT Hematocrit 23 % (42-52); iSTAT Hemoglobin 7.8 g/dl (14.0-18.0); iSTAT Potassium 3.9 mEq/L (3.3-5.0); iSTAT Sodium 138 mEq/L (135-144)
[2018-11-26] MEDS ORDERED: RAPID SEQUENCE INDUCTION BAG ONE (18:47)
[2018-11-26] MEDS ORDERED: SODIUM CHLORIDE 0.9% 1000ML 2,000 ML IV ONE (18:57)
[2018-11-26] MEDS ORDERED: SUCCINYLCHOLINE CHLORIDE 20 MG/ML 10 ML VIAL IV ONE (18:59)
[2018-11-26] MEDS ORDERED: MIDAZOLAM HCL 1 MG/ML 2ML VIAL ONE (19:12)
[2018-11-26 19:16] LABS: INR 1.8 (0.9-1.1); Partial Thromboplastin Time 25.9 Seconds (21.0-31.0); Prothrombin Time 17.4 Seconds (9.0-12.0)
[2018-11-26 19:25] LABS: Alanine Aminotransferase 162 U/L (12-78); Albumin Level 1.7 gm/dl (3.4-5.0); Aspartate Aminotransferase 269 U/L (15-37); BUN Creatinine Ratio 29.4 (10-20); Blood Urea Nitrogen 41 mg/dl (7-18); Calcium 8.1 mg/dl (8.5-10.1); Carbon Dioxide 15 mmol/L (21-32); Chloride 109 mmol/L (98-107); Est GFR (African American) 59.1; Glucose 141 mg/dl (70-99); Potassium 3.9 mmol/L (3.5-5.1); Sodium 139 mmol/L (136-145)
[2018-11-26 19:26] LABS: Base Excess VBG -11.2 mEq/L; HCO3 VBG 15 mmol/L; Oxygen Saturation VBG < 60.0 %; PCO2 VBG 35 mmHg (38-50); PO2 VBG 24 mmHg; pH VBG 7.26 (7.36-7.41)
[2018-11-26] MEDS ORDERED: MIDAZOLAM HCL 5 MG/ML 1 ML VIAL IV STA (19:28)
[2018-11-26 19:33] LABS: Albumin Globulin Ratio 0.5 (0.9-2); Alkaline Phosphatase 332 U/L (45-117); Bilirubin,Total 1.1 mg/dl (0.2-1); Globulin 3.8 gm/dl (2.5-4.0); NT Pro B Type Natriuretic Pept 1784 pg/ml (0-900); Total Protein 5.5 gm/dl (6.4-8.2); Troponin I 0.146 ng/ml (0-0.045)
[2018-11-26] MEDS ORDERED: ICU PROTOCOL FOR HYPERGLYCEMIA PRN ×2 (19:51→22:05)
[2018-11-26] MEDS ORDERED: FAMOTIDINE 20 MG in SYRINGE 3 ML IV SCH (20:00)
[2018-11-26] MEDS ORDERED: NORMOSOL-R 1,000 ML IV SCH ×2 (20:00→22:45)
[2018-11-26] MEDS ORDERED: CARBOHYDRATES FOR HYPOGLYCEMIA PO PRN (20:08)
[2018-11-26] MEDS ORDERED: GLUCOSE 40% GEL 15 GM TUBE PO PRN (20:08)
[2018-11-26] MEDS ORDERED: DEXTROSE 50% 50 ML SYRINGE IV PRN (20:08)
[2018-11-26] MEDS ORDERED: GLUCOSE 10 TABS/TUBE PO PRN (20:08)
[2018-11-26] MEDS ORDERED: GLUCAGON FOR INJ 1 MG VIAL SQ PRN (20:08)
--- NOTE | 2018-11-26 20:13 | Critical Care Consultation ---
Date of Consultation November 26, 2018 Assessment & Plan (1) Admitted to intensive care unit: Reason Critically Ill: 68-year-old male with recent cardiac arrest: Ventricular fibrillation with return of spontaneous circulation PLAN: Neuro: Acute encephalopathy -CT head noncontrast ordered Resp: Acute hypoxic respiratory failure -Noncon CT chest ordered -Broad-spectrum antibiotics -Patient consented for bronchoscopy Concern for pulmonary embolism -Patient high risk will empirically anticoagulate with heparin CV: Cardiac arrest secondary to ventricular fibrillation -Trend cardiac enzymes -Echocardiogram -Bedside echocardiogram did not reveal significant pericardial effusion -EKG in morning Elevated cardiac enzymes -Anticipated given cardiac arrest Elevated BNP -Anticipated given cardiac arrest however patient does not have a history of previously elevated BNP Fluids/Renal: Acute kidney injury -Baseline appears to hover around 1 currently 1.39 -Normosol 100 mL/h Avoiding contrast given recent cardiac arrest and acute kidney injury High gap metabolic acidosis: Severe lactic acidosis ID: Febrile illness -Presumptive severe sepsis -Empiric Zosyn and vancomycin GI/Nutrition: Transaminitis -Patient had normal LFTs 2 weeks ago -Right upper quadrant ultrasound rule out venous thromboembolic disease versus shock liver Heme: Venous thromboembolic disease -Heparin infusion no bolus given Xarelto use DVT prophylaxis: Noted above Type and screen ordered Elevated INR -I suspect significant aspect of hepatic insufficiency patient is not on coumarin's Endocrine: ICU hyperglycemia protocol Subcutaneous insulin orders placed Vascular access: Patient consented for central venous access and arterial line and blood transfusion Code Status: DO NOT RESUSCITATE in event of cardiac arrest An extensive discussion with the patient's , patient's sister sister spouse and the family gunite mixer. Patient would not want heroic measures undertaken if severely debilitated status was most likely outcome. Given stage IV pancreatic cancer, sepsis, hypotension with high gap metabolic acidosis patient were to suffer a cardiac arrest again I do believe the outcome would lead to severely debilitated state if it were successful and aggressive resuscitation, therefore all were in agreement that the patient would not want heroic measures undertaken in event of subsequent cardiac arrest. I have personally spent 60 minutes of critical care time in the direct management of this patient. This is a life/limb threatening event. This includes time spent evaluating patient, direct bedside care, chart review, placing orders, interpretation of diagnostic studies, discussion with consultants, patient, and/or family members regarding treatment decisions, as well as other required patient management activities. This time is exclusive of all separately billable procedures, and teaching time and separate from and in addition to any other critical care service time. History of Present Illness Reason for Consultation: Cardiac arrest Patient is a 68-year-old male with a history of stage IV pancreatic cancer who presented to the hospital after after cardiac arrest outside of the hospital this was witnessed by family CPR was immediately started upon EMSs arrival they found the patient in ventricular fibrillation was shocked and had return of spontaneous circulation. He was not intubated until arrival to the emergency department. In the emergency department he was found to have altered mental status and poor oxygenation, he was also hypotensive. He was intubated for acute hypoxic respiratory failure. Additional significant past medical history includes severe protein calorie malnutrition, pressure ulcer of the right buttock, chronic anemia, history of staphylococcal sepsis: Bacteremia, leukopenia secondary to chemotherapy. He is actively receiving chemotherapy his last chemotherapy dose was Thursday. He has had a low-grade temp of the last 24 hours. Additional past medical history includes acute kidney injury, DVT for which she takes Xarelto DVT was in the left lower extremity. I have been asked to evaluate the patient for further medical management. Requesting Physician: Dr. Elias History of Present Illness Jacklyn Allergies Allergy/AdvReac Type Severity Reaction Status Date / Time No Known Allergies Allergy Verified 11/26/18 19:06 Home Medications Home Medications Medication Instructions Recorded Confirmed Type amlodipine-benazepril 1 cap PO QAM 04/20/18 11/26/18 History cyanocobalamin (vitamin B-12) 1,000 mcg PO QAM 07/14/18 11/26/18 History [Vitamin B-12] Novolog Flexpen U-100 Insulin 0 unit SUBCUT TIDM PRN 07/22/18 11/26/18 History aspirin [Aspir-81] 81 mg PO QAM 08/29/18 11/26/18 History docusate sodium [Colace] 100 mg PO BID 08/29/18 11/26/18 History oxycodone 10 mg PO Q4 PRN 08/29/18 11/26/18 History Xarelto 20 mg PO DAILY 10/21/18 11/26/18 History lactulose 10 gm PO TID PRN #480 ml 10/29/18 11/26/18 Rx polyethylene glycol 3350 [Miralax] 17 g PO DAILY 30 Days #30 ea 10/29/18 11/26/18 Rx finasteride 5 mg PO DAILY 11/26/18 11/26/18 History insulin glargine [Basaglar KwikPen 0 unit SUBCUT DIRECTED 11/26/18 11/26/18 History U-100 Insulin] ketoconazole 1 dose TOPICAL DIRECTED 11/26/18 11/26/18 History megestrol 20 ml PO QAM 11/26/18 11/26/18 History pravastatin 80 mg PO HS 11/26/18 11/26/18 History sennosides-docusate sodium [Senna 2 tab PO HS 11/26/18 11/26/18 History Laxative-Stool Softener] Patient History Medical History Constipation Acute kidney injury Hyperglycemia due to type 2 diabetes mellitus Hospital-acquired pneumonia Abdominal pain Sepsis (Acute) Leukocytosis (Acute) Lactic acidosis (Acute) DVT prophylaxis Diabetes mellitus HTN (hypertension) Pancreatic cancer Common bile duct obstruction secondary to biliary stent Colon cancer screening Elevated LFTs Epigastric abdominal pain DVT prophylaxis Choledocholithiasis (Acute) Epigastric abdominal pain (Acute) Encounter for pre-operative examination Corneal abrasion of both eyes Acute pancreatitis Pancreatic cancer metastasized to liver Hyperlipidemia Essential hypertension DM w/o complication type II GRICELDA (obstructive sleep apnea) Acute urinary retention (Inactive) Constipation (Inactive) Dysphagia (Inactive) Epigastric abdominal pain (Inactive) Hypoglycemia (Inactive) Neutropenia (Inactive) Pancreatic cancer (Inactive) Basal cell carcinoma (BCC) of forehead S/P EXCISION Constipation Diabetes mellitus, type 2 History of pancreatitis RECENT; 07/2018 FELT 2/2 CBD/PANCREATIC DUCT STRICTURES PER [facility] HOSPITALIST NOTE- SURGEON AWARE Hyperlipidemia Hypertension Osteoarthritis Pancreatic cancer WITH LIVER METS Peripheral neuropathy left leg -sore to touch; no difficulty walking Sleep apnea CPAP 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 S/P MOHS PROCEDURE Surgical History H/O Moh's micrographic surgery for skin cancer H/O carpal tunnel repair B/L History of ERCP ERCP WITH BILIARY STENT PLACEMENT/EUS/SPHINCTEROTOMY= 07/14/18= GRADE VIEW 1, MAC 3, ETT 7.5 AT [facility] History of colonoscopy History of tonsillectomy History of tooth extraction WISDOM TEETH Family History Mother Gastric cancer Brother Gastric cancer Social History Preferred Language: British Communication Ability: Effective Beliefs That Will Affect Care: None marital status: Current Living Situation: Spouse Current Living Situation Comment: House current occupational status: retired 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 Symmetrical lids. HENT: Oropharynx is obscured by the endotracheal tube, mucous membranes appear to be moist. Neck: Supple. Symmetric. trachea midline. No thyromegaly. Cardiovascular: Decreased peripheral perfusion with delayed capillary refill. Distal pulses are weak however palpable. No JVD. Respiratory: Respirations are labored, no accessory muscle use. Breath sounds are coarse bilaterally Gastrointestinal: Soft. Non-distended. Musculoskeletal: No deformity. Chest: Patient has a central venous catheter sutured into the anterior right chest Results & Data Vital Signs (Past 12 Hours) Vital Signs Temp Pulse Pulse Resp BP BP Pulse Ox 11/26/18 19:42 146 H 26 H 74/57 L 100 11/26/18 19:21 149 H 26 H 71/41 L 96 11/26/18 19:16 152 H 74/46 L 98 11/26/18 19:12 100 11/26/18 19:10 150 H 96/50 L 100 11/26/18 19:05 145 H 113/64 96 11/26/18 19:00 145 H 17 105/52 L 100 11/26/18 18:55 151 H 81/44 L 100 11/26/18 18:50 148 H 63/42 L 81 L 11/26/18 18:45 151 H 74/45 L 100 11/26/18 18:42 164 H 99 11/26/18 18:40 156 H 73/45 L 100 11/26/18 18:39 152 H 75/47 L 100 11/26/18 18:36 147 H 56/33 L 97 11/26/18 18:31 152 H 94 11/26/18 18:30 142 H 33 H 96 11/26/18 18:26 155 H 64/38 L 97 11/26/18 18:22 157 H 100 11/26/18 18:19 38.1 C H 151 H 66/46 L 97 11/26/18 11/26/18 11/26/18 Range/Units 18:43 18:43 18:43 WBC RBC Hgb POC Hgb (14.0-18.0) g/dl Hct POC Hct (42-52) % MCV MCH MCHC Plt Count PT (9.0-12.0) Seconds INR (0.9-1.1) APTT (21.0-31.0) Seconds PTT Ratio POC pH (7.35-7.45) POC pCO2 (35-46) mmHg POC pO2 (80-95) mmHg POC HCO3 (19-24) betty/L POC Total CO2 (24-31) mEq/l POC Base Excess (-9-1.8) betty/L VBG pH 7.26 L (7.36-7.41) VBG pCO2 35 L (38-50) mmHg VBG pO2 24 mmHg VBG HCO3 15 mmol/L VBG O2 Saturation < 60.0 % VBG Base Excess -11.2 mEq/L Barometric Pressure 719.7 mm/Hg POC Sodium (135-144) mEq/L Sodium 139 (136-145) mmol/L POC Potassium (3.3-5.0) mEq/L Potassium 3.9 (3.5-5.1) mmol/L Chloride 109 H (98-107) mmol/L Carbon Dioxide 15 L (21-32) mmol/L Anion Gap 15.0 H (3-11) BUN 41 H (7-18) mg/dl Creatinine 1.39 (0.6-1.4) mg/dl Est Cr Clr Drug Dosing Not Reportable Est GFR ( Amer) 59.1 Est GFR (Non-Af Amer) 51.0 BUN/Creatinine Ratio 29.4 H (10-20) Glucose 141 H (70-99) mg/dl Lactate 9.0 H* (0.4-2.0) mmol/L Calcium 8.1 L (8.5-10.1) mg/dl Total Bilirubin 1.1 H (0.2-1) mg/dl AST 269 H (15-37) U/L ALT 162 H (12-78) U/L Alkaline Phosphatase 332 H (45-117) U/L Troponin I 0.146 H* (0-0.045) ng/ml NT-Pro-B Natriuret Pep 1784 H (0-900) pg/ml Total Protein 5.5 L (6.4-8.2) gm/dl Albumin 1.7 L (3.4-5.0) gm/dl Globulin 3.8 (2.5-4.0) gm/dl Albumin/Globulin Ratio 0.5 L (0.9-2) Lipase 123 (73-393) U/L 11/26/18 11/26/18 11/26/18 Range/Units 18:43 18:43 18:30 WBC Pending RBC Pending Hgb Pending POC Hgb 7.8 L (14.0-18.0) g/dl Hct Pending POC Hct 23 L (42-52) % MCV Pending MCH Pending MCHC Pending Plt Count Pending PT 17.4 H (9.0-12.0) Seconds INR 1.8 H (0.9-1.1) APTT 25.9 (21.0-31.0) Seconds PTT Ratio 1.0 POC pH 7.42 (7.35-7.45) POC pCO2 18 L (35-46) mmHg POC pO2 191 H (80-95) mmHg POC HCO3 12 L (19-24) betty/L POC Total CO2 12 L (24-31) mEq/l POC Base Excess -13.0 L (-9-1.8) betty/L VBG pH (7.36-7.41) VBG pCO2 (38-50) mmHg VBG pO2 mmHg VBG HCO3 mmol/L VBG O2 Saturation % VBG Base Excess mEq/L Barometric Pressure mm/Hg POC Sodium 138 (135-144) mEq/L Sodium (136-145) mmol/L POC Potassium 3.9 (3.3-5.0) mEq/L Potassium (3.5-5.1) mmol/L Chloride (98-107) mmol/L Carbon Dioxide (21-32) mmol/L Anion Gap (3-11) BUN (7-18) mg/dl Creatinine (0.6-1.4) mg/dl Est Cr Clr Drug Dosing Est GFR ( Amer) Est GFR (Non-Af Amer) BUN/Creatinine Ratio (10-20) Glucose (70-99) mg/dl Lactate (0.4-2.0) mmol/L Calcium (8.5-10.1) mg/dl Total Bilirubin (0.2-1) mg/dl AST (15-37) U/L ALT (12-78) U/L Alkaline Phosphatase (45-117) U/L Troponin I (0-0.045) ng/ml NT-Pro-B Natriuret Pep (0-900) pg/ml Total Protein (6.4-8.2) gm/dl Albumin (3.4-5.0) gm/dl Globulin (2.5-4.0) gm/dl Albumin/Globulin Ratio (0.9-2) Lipase (73-393) U/L Laboratory Results 11/26/18 11/26/18 11/26/18 Range/Units 18:43 18:43 18:43 WBC RBC Hgb POC Hgb (14.0-18.0) g/dl Hct POC Hct (42-52) % MCV MCH MCHC Plt Count PT (9.0-12.0) Seconds INR (0.9-1.1) APTT (21.0-31.0) Seconds PTT Ratio POC pH (7.35-7.45) POC pCO2 (35-46) mmHg POC pO2 (80-95) mmHg POC HCO3 (19-24) betty/L POC Total CO2 (24-31) mEq/l POC Base Excess (-9-1.8) betty/L VBG pH 7.26 L (7.36-7.41) VBG pCO2 35 L (38-50) mmHg VBG pO2 24 mmHg VBG HCO3 15 mmol/L VBG O2 Saturation < 60.0 % VBG Base Excess -11.2 mEq/L Barometric Pressure 719.7 mm/Hg POC Sodium (135-144) mEq/L Sodium 139 (136-145) mmol/L POC Potassium (3.3-5.0) mEq/L Potassium 3.9 (3.5-5.1) mmol/L Chloride 109 H (98-107) mmol/L Carbon Dioxide 15 L (21-32) mmol/L Anion Gap 15.0 H (3-11) BUN 41 H (7-18) mg/dl Creatinine 1.39 (0.6-1.4) mg/dl Est Cr Clr Drug Dosing Not Reportable Est GFR ( Amer) 59.1 Est GFR (Non-Af Amer) 51.0 BUN/Creatinine Ratio 29.4 H (10-20) Glucose 141 H (70-99) mg/dl Lactate 9.0 H* (0.4-2.0) mmol/L Calcium 8.1 L (8.5-10.1) mg/dl Total Bilirubin 1.1 H (0.2-1) mg/dl AST 269 H (15-37) U/L ALT 162 H (12-78) U/L Alkaline Phosphatase 332 H (45-117) U/L Troponin I 0.146 H* (0-0.045) ng/ml NT-Pro-B Natriuret Pep 1784 H (0-900) pg/ml Total Protein 5.5 L (6.4-8.2) gm/dl Albumin 1.7 L (3.4-5.0) gm/dl Globulin 3.8 (2.5-4.0) gm/dl Albumin/Globulin Ratio 0.5 L (0.9-2) Lipase 123 (73-393) U/L 11/26/18 11/26/18 11/26/18 Range/Units 18:43 18:43 18:30 WBC Pending RBC Pending Hgb Pending POC Hgb 7.8 L (14.0-18.0) g/dl Hct Pending POC Hct 23 L (42-52) % MCV Pending MCH Pending MCHC Pending Plt Count Pending PT 17.4 H (9.0-12.0) Seconds INR 1.8 H (0.9-1.1) APTT 25.9 (21.0-31.0) Seconds PTT Ratio 1.0 POC pH 7.42 (7.35-7.45) POC pCO2 18 L (35-46) mmHg POC pO2 191 H (80-95) mmHg POC HCO3 12 L (19-24) betty/L POC Total CO2 12 L (24-31) mEq/l POC Base Excess -13.0 L (-9-1.8) betty/L VBG pH (7.36-7.41) VBG pCO2 (38-50) mmHg VBG pO2 mmHg VBG HCO3 mmol/L VBG O2 Saturation % VBG Base Excess mEq/L Barometric Pressure mm/Hg POC Sodium 138 (135-144) mEq/L Sodium (136-145) mmol/L POC Potassium 3.9 (3.3-5.0) mEq/L Potassium (3.5-5.1) mmol/L Chloride (98-107) mmol/L Carbon Dioxide (21-32) mmol/L Anion Gap (3-11) BUN (7-18) mg/dl Creatinine (0.6-1.4) mg/dl Est Cr Clr Drug Dosing Est GFR ( Amer) Est GFR (Non-Af Amer) BUN/Creatinine Ratio (10-20) Glucose (70-99) mg/dl Lactate (0.4-2.0) mmol/L Calcium (8.5-10.1) mg/dl Total Bilirubin (0.2-1) mg/dl AST (15-37) U/L ALT (12-78) U/L Alkaline Phosphatase (45-117) U/L Troponin I (0-0.045) ng/ml NT-Pro-B Natriuret Pep (0-900) pg/ml Total Protein (6.4-8.2) gm/dl Albumin (3.4-5.0) gm/dl Globulin (2.5-4.0) gm/dl Albumin/Globulin Ratio (0.9-2) Lipase (73-393) U/L Diagnostic Findings Initial emergency department EKG reviewed
[2018-11-26] MEDS ORDERED: PIPERACILLIN/TAZOBACTAM 3.375 GM in DEXTROSE 5% 100 ML IV SCH (20:15)
[2018-11-26] MEDS ORDERED: VANCOMYCIN HCL 1,000 MG in SODIUM CHLORIDE 0.9% 250 ML IV SCH (20:15)
[2018-11-26] MEDS ORDERED: HEPARIN SODIUM/DEXTROSE 25,000 UNITS/500 ML BAG IV SCH (20:15)
[2018-11-26 21:00] LABS: Hematocrit (blood only) 27.2 % (42-52); Hemoglobin 8.9 g/dL (14.0-18.0); Mean Corpuscular Hgb Conc 32.7 g/dL (32-36); Mean Corpuscular Volume 98.2 fL (80-100); Mean Platelet Volume 11.7 fL (7.4-10.4); Nucleated RBC # (auto) 0.05 K/uL (0-0); Nucleated RBC % (auto) 15.9 %; Platelet Count 55 K/uL (130-400); RDW Coefficient of Variation 15.4 % (11.5-14.5); RDW Standard Deviation 55.8 fL (36.4-46.3); Red Blood Count 2.77 M/uL (4.7-6.1); White Blood Count 0.29 K/uL (4.8-10.8)
[2018-11-26] MEDS ORDERED: INSULIN ASPART 100 UNITS/ML 3 ML PEN SC SCH (21:00)
[2018-11-26 21:08] LABS: Platelet Estimate Decreased (Normal)
[2018-11-26] MEDS ORDERED: CASPOFUNGIN 70 MG in SODIUM CHLORIDE 0.9% 250 ML IV ONE (21:35)
[2018-11-26] MEDS ORDERED: ENOXAPARIN INJ 40 MG/0.4 ML SYR SQ SCH (22:00)
--- NOTE | 2018-11-26 22:11 | CT Scan Report ---
CHEST, ABDOMEN AND PELVIS CT WITHOUT CONTRAST CT DOSE: 1828.25 mGy.cm HISTORY: critically ill, unresponsive TECHNIQUE: Multiaxial CT images of the chest, abdomen and pelvis were performed without contrast. A dose lowering technique was utilized adhering to the principles of ALARA. COMPARISON STUDY: Chest CTA and abdomen and pelvis CT 11/03/2018. FINDINGS: The endotracheal tube terminates 2.5 cm from the suzy. No pneumothorax. Trace bilateral p leural effusions. Mild interlobular septal thickening suggests mild congestive change. Bibasilar dens ities within the lower lobes favor subsegmental atelectasis. There is respiratory motion artifact. Th e central airways are patent. No definite fractures identified. Of note, this is suboptimally assesse d due to the motion artifact. No suspicious lytic or blastic osseous lesions within the chest. Calcif ied subcarinal lymph node. Right jugular central venous catheter terminates in the distal SVC. No med iastinal or hilar lymphadenopathy. The heart is normal in size. No significant pericardial effusion. Normal esophagus. Normal caliber thoracic aorta. No suspicious lytic or blastic osseous lesions within the visualized abdomen or pelvis. Mild motion a rtifact. Multiple calcified granulomas seen within the spleen. Mild bilateral perinephric edema which is likely chronic. No hydronephrosis. Atrophy and focal calcification within the lower pole of the r ight kidney, unchanged. There is a duplicated right renal collecting system. No retroperitoneal lymph adenopathy. There is a left circumaortic renal vein. There is a common bile duct stent appears in goo d position. There is gas within the common bile duct stent and biliary tree. There is also gas within the gallbladder lumen. The gallbladder appears to be mildly distended. There may be mild thickening of the gallbladder wall with mild adjacent fat stranding. Small focus of gas at the fundus of the gal lbladder is seen in image 148. The exact location of this gas is difficult to determine due to the mo tion artifact and could be extraluminal. Therefore, this raises the possibility of acute gangrenous c holecystitis. Mild edema surrounding the pancreas which has slightly progressed. No retroperitoneal l ymphadenopathy. The bladder is decompressed by a Ugarte catheter. No bowel wall thickening or obstruct ion. Moderate stool seen throughout the colon. The appendix is partially obscured by the motion artif act. IMPRESSION: 1. The gallbladder appears mildly distended and there is suggestion of mild gallbladder wall thickeni ng with adjacent fat stranding which has progressed. This is concerning for acute cholecystitis. Ther e is gas within the lumen of the gallbladder which was also seen on the prior study likely due to the patent common bile duct stent. However, there is a small focus of gas at the fundus of the gallbladd er. Due to the motion artifact, this is difficult to identify the exact location and could be intralu ian or extraluminal. If this focus of gas is extraluminal, then this would be consistent with an ac celeste gangrenous cholecystitis. 2. Mild peripancreatic edema which has slightly progressed. This may represent acute pancreatitis. 3. Trace bilateral pleural effusions, unchanged. There may be mild pulmonary vascular congestion. 4. Satisfactory support line placement. 5. Moderate well-formed stool seen throughout the colon. 6. Additional findings as described above. Electronically signed by: Oren Acuña M.D. 11/26/2018 10:09 PM
--- NOTE | 2018-11-26 22:14 | CT Scan Report ---
HEAD CT NONCONTRAST CT DOSE: HISTORY: Critically ill, unresponsive TECHNIQUE: Multiaxial CT images of the head were performed without the use of intravenous contrast. A utomated exposure control was utilized for this study. A dose lowering technique was utilized adheri ng to the principles of ALARA. Comparison: None. Findings: The paranasal sinuses and mastoid air cells are clear. The calvarium and skull base are int act. There is no mass, hematoma, midline shift, acute infarct. White matter hypodensity is nonspecifi c but suggestive of moderate microvascular ischemic change. The ventricles and sulci are within juan l limits. Old small bilateral basal ganglia lacunar infarcts. Impression: No acute intracranial abnormality. Electronically signed by: Oren Acuña M.D. 11/26/2018 10:13 PM
--- NOTE | 2018-11-26 22:32 | Procedure Note ---
Procedure Note Date of Service November 26, 2018 Procedure: Internal Jugular Central Line Placement Attending: Dr. Murphy APC: Jr Lozada PA-C Indication: Central Drug Administration, Poor Venous Access, Multiple Lab Draws Necessary, etc. Anesthesia: Lidocaine 1% Consent was signed and placed on the chart prior to procedure. Indication, risks, and benefits were explained at length. A time-out was completed verifying correct patient, procedure, site, positioning, and implants(s) or special equipment if applicable. Patients LEFT Neck was cleansed and draped in the typical sterile fashion using Chloraprep. The Internal Jugular Vein and Carotid Artery were identified using ultrasound. The superficial tissue was anesthetized using 4.0 mL of 1% lidocaine without epinephrine under direct visualization with the ultrasound. After adequate anesthetization was achieved, the Internal Jugular vein was cannulated under direct ultrasound guidance using an introducer needle on a syringe. Good venous blood return was maintained prior to removal of syringe from introducer needle. Using Seldinger Technique, a guide wire was advanced through the introducer needle without resistance. The introducer needle was removed and ultrasound images were obtained of the guide wire within the Internal Jugular Vein and saved to the patients medical record. A small incision was made in penetrating fashion at the guide wire insertion site utilizing an 11 blade scalpel. The dilator was advanced to the vessel without resistance. The dilator was exchanged for the triple lumen catheter which was advanced into the vessel without resistance. The guide wire was removed intact from the catheter without issue. Claves were placed on each catheter tip with confirmation of good blood flow from each lumen. Each port was easily flushed with sterile saline. The catheter was placed at 16 cm and sutured in place. BioPatch was applied to the catheter and a sterile Tegaderm dressing was applied over the catheter with careful attention to sterility. Patient tolerated procedure well. No immediate complications were met. Post procedure x-ray was completed, placement was appropriate and no pneumothorax was noted. Images obtained are saved for permanent record Procedural Ultrasound Guidance: Procedure Date: 11/26/2018 Indication: Pressors, Poor Access, Frequent Lab Draws Attending: Dr. Murphy APC: Jr Lozada PA-C Artery AND Vein visualized: YES Compressible Vein: YES Guidewire or Short Catheter seen in vein prior to dilation: YES Line confirmed in Vein with ultrasound: YES Images obtained are saved for permanent record. Coding
[2018-11-26] MEDS ORDERED: MIDAZOLAM HCL 1 MG/ML 2ML VIAL IV PRN (22:37)
[2018-11-26] MEDS ORDERED: fentaNYL citrate 100 MCG/2 ML VIAL IV PRN (22:37)
[2018-11-26] MEDS: FAMOTIDINE 20 MG in SYRINGE 3 ML IV SCH (22:38)
--- NOTE | 2018-11-26 22:55 | XRay Report ---
XR chest 1V portable HISTORY: S/P central line placement. COMPARISON: Chest 11/26/2018. FINDINGS: The endotracheal tube terminates 5.9 cm from the suzy. Nasogastric tube terminates in the distal stomach. A common bile duct stent is partially visualized. Right jugular central venous yennifer ter terminates within the distal SVC. Interval placement of a left jugular central venous catheter wh ich terminates in the proximal SVC. No pneumothorax. The heart is normal in size. The lungs are clear . IMPRESSION: 1. The endotracheal tube terminates 5.9 cm from the suzy. This should be advanced by approximately 2 to 3 cm. 2. Otherwise, satisfactory support line placement. 3. No pneumothorax. Electronically signed by: Oren Acuña M.D. 11/26/2018 10:54 PM
[2018-11-26] MEDS: VASOPRESSIN 20 UNITS in 0.9 % SODIUM CHLORIDE 100 ML IV SCH (23:00)
[2018-11-26] MEDS ORDERED: SODIUM BICARB 8.4% INJ 50 MEQ/50 ML SYR ONE (23:12)
[2018-11-26] MEDS ORDERED: SODIUM BICARB 8.4% INJ 50 MEQ/50 ML SYR IV STA (23:13)
--- NOTE | 2018-11-26 23:22 | Procedure Note ---
Procedure Note Date of Service November 26, 2018 Procedure: Arterial Line Placement Attending: Dr. Murphy APC: Jr Lozada PA-C Indication: Monitoring on Pressors Anesthesia: Lidocaine 1% Consent was signed and placed on the chart prior to procedure. Indication, risks, and benefits were explained at length. A time-out was completed verifying correct patient, procedure, site, positioning, and implant(s) or special equipment if applicable. Allens test was performed to ensure adequate perfusion. Patients RIGHT wrist was prepped and draped in the usual sterile fashion. Ultrasound guidance was used to aid needle placement. A 20g Arrow arterial line was introduced into the RIGHT Radial artery. Catheter was threaded, and the needle was removed with appropriate blood return. Good waveform was observed. The patient tolerated the procedure well. Confirmation of placement with ultrasound. Blood Loss: Minimal Complications: None Procedural Ultrasound Guidance: Procedure Date: 11/26/2018 Indication: 11/26/2018 Attending: Dr. Murphy APC: Jr Lozada PA-C Artery Identified: YES Line confirmed in Artery with ultrasound: YES Complications: NONE Patient tolerated procedure: WELL Coding
[2018-11-26] MEDS ORDERED: EPINEPHrine 2 MG in DEXTROSE 5% 250 ML IV STA (23:27)
[2018-11-26] MEDS: SODIUM BICARBONATE 8.4% 150 MEQ in DEXTROSE 5% 1,000 ML IV SCH (23:44)
[2018-11-26] MEDS: PHENYLEPHRINE HCL 20 MG in DEXTROSE 5% 500 ML IV PRN (23:52)
--- NOTE | 2018-11-26 23:53 | Critical Care Progress Note ---
Date of Service November 26, 2018 Assessment & Plan (1) Admitted to intensive care unit: Supervising Physician Co-Signing Physician Notes I have personally evaluated and examined this patient. I agree with assessment and plan of Nieves Lozada PA-C. I was made aware of the findings and discussed the plan overnight via telephone. Subjective Upon arrival in the ICU, the patient was with pressures in the 60s to 70s systolic while on relatively high doses of levo fed. LEFT IJ CVL and RIGHT radial A-line were placed. Please see separate notes. Additional orders were placed for vasopressin without improvement of pressure. At this point, did proceed with addition of Meir-Synephrine with patient's persistent tachycardia. This did not provide significant improvement in blood pressure. Epinephrine drip was started as well. ABG showed a metabolic acidosis. 2 A of bicarb were added with a bicarb drip as well. Electrolytes were replaced and patient received calcium chloride intravenously. Eventually, they did show improvement in the patient's systolic blood pressures into the 90s to [address] of the abdomen pelvis demonstrated possible acute cholecystitis versus gangrenous gallbladder. I did speak to my attending physician as well as general surgery. At this point, the patient is too fragile for surgical intervention. I did have a lengthy conversation with the patient's family. At this point, the patient will remain on current treatments, however, if the patient's heart were to stop, the patient would not go under aggressive resuscitation measures. He will be a DO NOT RESUSCITATE status per admitting status. I did speak with the family and there was discussion regarding continuation of care versus withdrawal of care. At this point, the wish to proceed with continued measures and continue to r eassess throughout the night. 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 I have personally spent 60 minutes of critical care time in the direct management of this patient. This is a life/limb threatening event. This includes time spent evaluating patient, direct bedside care, chart review, placing orders, interpretation of diagnostic studies, discussion with consultants, pat ient, and family members, as well as other required patient management activities. This time is exclusive of all separately billable procedures, and teaching time and separate from and in addition to any other critical care service time. Results & Data Vital Signs (Past 12 Hours) Vital Signs Temp Pulse Pulse Pulse Resp BP BP 11/26/18 23:21 136 H 35 H 11/26/18 22:51 133 H 63/36 L 11/26/18 22:45 136 H 26 H 66/45 L 11/26/18 22:31 137 H 20 76/44 L 11/26/18 22:20 136 H 30 H 89/58 L 11/26/18 22:00 127 H 24 88/55 L 11/26/18 21:52 37.1 C 135 H 28 H 88/55 L 11/26/18 21:29 138 H 30 H 78/37 L 11/26/18 21:24 37.1 C 138 H 26 H 11/26/18 21:01 138 H 37 H 11/26/18 20:47 139 H 28 H 11/26/18 20:34 139 H 33 H 81/44 L 11/26/18 20:18 139 H 28 H 11/26/18 20:00 142 H 142 H 36 H 109/79 11/26/18 19:42 146 H 26 H 11/26/18 19:21 149 H 26 H 11/26/18 19:16 152 H 74/46 L 11/26/18 19:12 11/26/18 19:10 150 H 96/50 L 11/26/18 19:05 145 H 113/64 11/26/18 19:00 145 H 17 105/52 L 11/26/18 18:55 151 H 81/44 L 11/26/18 18:50 148 H 63/42 L 11/26/18 18:45 151 H 74/45 L 11/26/18 18:42 164 H 11/26/18 18:40 156 H 73/45 L 11/26/18 18:39 152 H 75/47 L 11/26/18 18:36 147 H 56/33 L 11/26/18 18:31 152 H 11/26/18 18:30 142 H 33 H 11/26/18 18:26 155 H 64/38 L 11/26/18 18:22 157 H 11/26/18 18:19 38.1 C H 151 H 66/46 L BP Pulse Ox 11/26/18 23:21 1 L 11/26/18 22:51 11/26/18 22:45 100 11/26/18 22:31 100 11/26/18 22:20 100 11/26/18 22:00 98 11/26/18 21:52 100 11/26/18 21:29 98 11/26/18 21:24 78/37 L 96 11/26/18 21:01 100 11/26/18 20:47 70/42 L 96 11/26/18 20:34 87 L 11/26/18 20:18 109/79 95 11/26/18 20:00 91 11/26/18 19:42 74/57 L 100 11/26/18 19:21 71/41 L 96 11/26/18 19:16 98 11/26/18 19:12 100 11/26/18 19:10 100 11/26/18 19:05 96 11/26/18 19:00 100 11/26/18 18:55 100 11/26/18 18:50 81 L 11/26/18 18:45 100 11/26/18 18:42 99 11/26/18 18:40 100 11/26/18 18:39 100 11/26/18 18:36 97 11/26/18 18:31 94 11/26/18 18:30 96 11/26/18 18:26 97 11/26/18 18:22 100 11/26/18 18:19 97
[2018-11-26 23:58] LABS: iSTAT Allen Test Pass; iSTAT Arterial Blood Gas HCO3 11 meg/L (19-24); iSTAT Arterial Blood Gas pCO2 22 mmHg (35-46); iSTAT Carbon Dioxide 12 mEq/l (24-31); iSTAT FiO2 40 %; iSTAT Site Art Line
[2018-11-27] MEDS: ASCORBIC ACID 1,500 MG, THIAMINE HCL 100 MG in 0.9 % SODIUM CHLORIDE 100 ML IV SCH ×3 (00:21→12:37)
[2018-11-27 00:22] LABS: BUN Creatinine Ratio 27.8 (10-20); Calcium 7.1 mg/dl (8.5-10.1); Creatinine Clr Calc Pharmacy 41.7 ml/min; Est GFR (Non-African American) 41.4; Magnesium 1.6 mg/dl (1.8-2.4); Phosphorus 1.6 mg/dl (2.5-4.9); Potassium 4.1 mmol/L (3.5-5.1)
[2018-11-27] MEDS: HYDROCORTISONE SOD 50 MG in SYRINGE 0 ML IV SCH ×3 (00:22→12:37)
--- NOTE | 2018-11-27 00:31 | Emergency Department Note ---
Entered by Merissa Aaron acting as a scribe for History of Present Illness General Chief complaint: Cardiac Arrest/CPR Source: EMS Limitations: other (patient's current status) History of Present Illness Onset (ago): hour(s) 2 Location: chest Pain Consistency: + other (sudden) Quality: + other (cardiac arrest) Associated symptoms: + shortness of breath and + other (Positive sycnope, fever of 102.6, SOB, hypertensive, blood sugar of 211. ) Treatments prior to arrival: other (2 rounds of CPR) The patient is a 68 year old male who presents to the Emergency Room for a cardiac arrest. As per EMS, the patient called as he suddenly developed SOB. EMS states that when the patient stood up, he syncopized and went into a cardiac arrest. They note the patient had 2 rounds of CPR as he was in Vfib. EMS notes the patient did not receive any medications or shocks. As per EMS, the patient showed Afib on the monitor. He is still hypertensive and his blood sugar was 211 and he is febrile at 102.6. After being placed on CPAP, the patients stats slightly improved. EMS reports the patient does not usually wear oxygen at home. HPI and ROS limited secondary to the patient's current status. Home Medications Home Medications Medication Instructions Recorded Confirmed Type amlodipine-benazepril 1 cap PO QAM 04/20/18 11/26/18 History cyanocobalamin (vitamin B-12) 1,000 mcg PO QAM 07/14/18 11/26/18 History [Vitamin B-12] Novolog Flexpen U-100 Insulin 0 unit SUBCUT TIDM PRN 07/22/18 11/26/18 History aspirin [Aspir-81] 81 mg PO QAM 08/29/18 11/26/18 History docusate sodium [Colace] 100 mg PO BID 08/29/18 11/26/18 History oxycodone 10 mg PO Q4 PRN 08/29/18 11/26/18 History Xarelto 20 mg PO DAILY 10/21/18 11/26/18 History lactulose 10 gm PO TID PRN #480 ml 10/29/18 11/26/18 Rx polyethylene glycol 3350 [Miralax] 17 g PO DAILY 30 Days #30 ea 10/29/18 11/26/18 Rx finasteride 5 mg PO DAILY 11/26/18 11/26/18 History insulin glargine [Basaglar KwikPen 0 unit SUBCUT DIRECTED 11/26/18 11/26/18 History U-100 Insulin] ketoconazole 1 dose TOPICAL DIRECTED 11/26/18 11/26/18 History megestrol 20 ml PO QAM 11/26/18 11/26/18 History pravastatin 80 mg PO HS 11/26/18 11/26/18 History sennosides-docusate sodium [Senna 2 tab PO HS 11/26/18 11/26/18 History Laxative-Stool Softener] Allergies Allergy/AdvReac Type Severity Reaction Status Date / Time No Known Allergies Allergy Verified 11/26/18 19:06 Past Med/Surg History Medical History Constipation Acute kidney injury Hyperglycemia due to type 2 diabetes mellitus Hospital-acquired pneumonia Abdominal pain Sepsis (Acute) Leukocytosis (Acute) Lactic acidosis (Acute) DVT prophylaxis Diabetes mellitus HTN (hypertension) Pancreatic cancer Common bile duct obstruction secondary to biliary stent Colon cancer screening Elevated LFTs Epigastric abdominal pain DVT prophylaxis Choledocholithiasis (Acute) Epigastric abdominal pain (Acute) Encounter for pre-operative examination Corneal abrasion of both eyes Acute pancreatitis Pancreatic cancer metastasized to liver Hyperlipidemia Essential hypertension DM w/o complication type II GRICELDA (obstructive sleep apnea) Acute urinary retention (Inactive) Constipation (Inactive) Dysphagia (Inactive) Epigastric abdominal pain (Inactive) Hypoglycemia (Inactive) Neutropenia (Inactive) Pancreatic cancer (Inactive) Basal cell carcinoma (BCC) of forehead S/P EXCISION Constipation Diabetes mellitus, type 2 History of pancreatitis RECENT; 07/2018 FELT 2/2 CBD/PANCREATIC DUCT STRICTURES PER [facility] HOSPITALIST NOTE- SURGEON AWARE Hyperlipidemia Hypertension Osteoarthritis Pancreatic cancer WITH LIVER METS Peripheral neuropathy left leg -sore to touch; no difficulty walking Sleep apnea CPAP 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 S/P MOHS PROCEDURE Surgical History H/O Moh's micrographic surgery for skin cancer H/O carpal tunnel repair B/L History of ERCP ERCP WITH BILIARY STENT PLACEMENT/EUS/SPHINCTEROTOMY= 07/14/18= GRADE VIEW 1, MAC 3, ETT 7.5 AT [facility] History of colonoscopy History of tonsillectomy History of tooth extraction WISDOM TEETH Family History Mother Gastric cancer Brother Gastric cancer Social History Preferred Language: Setswana Communication Ability: Impaired Barkeeper Required: No Beliefs That Will Affect Care: None marital status: Current Living Situation: Spouse Current Living Situation Comment: House current occupational status: retired 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[employer], was also previously in the [employer] Other Information That Helps Us Care for You: No Feels Safe at Home: Yes Safety Concerns: Feels Safe At This Time Smoking Status: Never smoker Do You Dip or Chew Tobacco: No Second Hand Exposure: No Tobacco Cessation Education Requested by Patient: No Hx Alcohol Use: No Hx Substance Use: No Review of Systems HPI and ROS limited secondary to the patient's current status Physical Exam Vital Signs Vital Signs - 24 hr 11/26/18 18:19 11/26/18 18:22 11/26/18 18:26 Temperature 38.1 C H Temperature Source Rectal Sepsis Recent Fever Within 48 Hours Yes Sepsis New/Unexplained Change in Mental Status Yes Sepsis Action Taken by Nursing No Action Required End-Tidal CO2 Pulse Rate 151 H 157 H 155 H Pulse Rate [Apical] Pulse Rate [Right Radial] Pulse Rate from SpO2 Sensor 154 H 155 H 152 H Respiratory Rate Respiratory Effort / Characteristics Grunting Short of Breath Respiratory Depth Respiratory Pattern Blood Pressure 66/46 L 64/38 L Blood Pressure [Left Arm] Blood Pressure [Right Arm] Blood Pressure Mean 52 46 Blood Pressure Mean [Left Arm] Blood Pressure Mean [Right Arm] Blood Pressure Position [Left Arm] Pulse Oximetry 97 100 97 Oxygen Delivery Method BiPAP Fraction of Inspired Oxygen SaO2/FiO2 Ratio 11/26/18 18:30 11/26/18 18:31 11/26/18 18:36 Temperature Temperature Source Sepsis Recent Fever Within 48 Hours Sepsis New/Unexplained Change in Mental Status Sepsis Action Taken by Nursing End-Tidal CO2 Pulse Rate 142 H 152 H 147 H Pulse Rate [Apical] Pulse Rate [Right Radial] Pulse Rate from SpO2 Sensor 150 H 153 H 144 H Respiratory Rate 33 H Respiratory Effort / Characteristics Respiratory Depth Respiratory Pattern Blood Pressure 56/33 L Blood Pressure [Left Arm] Blood Pressure [Right Arm] Blood Pressure Mean 45 40 Blood Pressure Mean [Left Arm] Blood Pressure Mean [Right Arm] Blood Pressure Position [Left Arm] Pulse Oximetry 96 94 97 Oxygen Delivery Method Fraction of Inspired Oxygen 50 SaO2/FiO2 Ratio 11/26/18 18:39 11/26/18 18:40 11/26/18 18:42 Temperature Temperature Source Sepsis Recent Fever Within 48 Hours Sepsis New/Unexplained Change in Mental Status Sepsis Action Taken by Nursing End-Tidal CO2 Pulse Rate 152 H 156 H 164 H Pulse Rate [Apical] Pulse Rate [Right Radial] Pulse Rate from SpO2 Sensor 152 H 152 H 154 H Respiratory Rate Respiratory Effort / Characteristics Respiratory Depth Respiratory Pattern Blood Pressure 75/47 L 73/45 L Blood Pressure [Left Arm] Blood Pressure [Right Arm] Blood Pressure Mean 56 54 Blood Pressure Mean [Left Arm] Blood Pressure Mean [Right Arm] Blood Pressure Position [Left Arm] Pulse Oximetry 100 100 99 Oxygen Delivery Method Fraction of Inspired Oxygen SaO2/FiO2 Ratio 11/26/18 18:45 11/26/18 18:50 11/26/18 18:55 Temperature Temperature Source Sepsis Recent Fever Within 48 Hours Sepsis New/Unexplained Change in Mental Status Sepsis Action Taken by Nursing End-Tidal CO2 Pulse Rate 151 H 148 H 151 H Pulse Rate [Apical] Pulse Rate [Right Radial] Pulse Rate from SpO2 Sensor 151 H 156 H 151 H Respiratory Rate Respiratory Effort / Characteristics Respiratory Depth Respiratory Pattern Blood Pressure 74/45 L 63/42 L 81/44 L Blood Pressure [Left Arm] Blood Pressure [Right Arm] Blood Pressure Mean 54 49 56 Blood Pressure Mean [Left Arm] Blood Pressure Mean [Right Arm] Blood Pressure Position [Left Arm] Pulse Oximetry 100 81 L 100 Oxygen Delivery Method Fraction of Inspired Oxygen SaO2/FiO2 Ratio 11/26/18 19:00 11/26/18 19:05 11/26/18 19:10 Temperature Temperature Source Sepsis Recent Fever Within 48 Hours Sepsis New/Unexplained Change in Mental Status Sepsis Action Taken by Nursing End-Tidal CO2 34 39 29 Pulse Rate 145 H 145 H 150 H Pulse Rate [Apical] Pulse Rate [Right Radial] Pulse Rate from SpO2 Sensor 146 H 145 H 150 H Respiratory Rate 17 Respiratory Effort / Characteristics Respiratory Depth Respiratory Pattern Blood Pressure 105/52 L 113/64 96/50 L Blood Pressure [Left Arm] Blood Pressure [Right Arm] Blood Pressure Mean 69 80 65 Blood Pressure Mean [Left Arm] Blood Pressure Mean [Right Arm] Blood Pressure Position [Left Arm] Pulse Oximetry 100 96 100 Oxygen Delivery Method Fraction of Inspired Oxygen 50 SaO2/FiO2 Ratio 11/26/18 19:12 11/26/18 19:16 11/26/18 19:21 Temperature Temperature Source Sepsis Recent Fever Within 48 Hours Sepsis New/Unexplained Change in Mental Status Sepsis Action Taken by Nursing End-Tidal CO2 27 Pulse Rate 152 H Pulse Rate [Apical] Pulse Rate [Right Radial] 149 H Pulse Rate from SpO2 Sensor 155 H Respiratory Rate 26 H Respiratory Effort / Characteristics Respiratory Depth Respiratory Pattern Blood Pressure 74/46 L Blood Pressure [Left Arm] Blood Pressure [Right Arm] 71/41 L Blood Pressure Mean 55 Blood Pressure Mean [Left Arm] Blood Pressure Mean [Right Arm] 51 Blood Pressure Position [Left Arm] Pulse Oximetry 100 98 96 Oxygen Delivery Method Mechanical Vent Mechanical Vent Fraction of Inspired Oxygen SaO2/FiO2 Ratio 11/26/18 19:42 11/26/18 20:00 11/26/18 20:18 Temperature Temperature Source Sepsis Recent Fever Within 48 Hours Sepsis New/Unexplained Change in Mental Status Sepsis Action Taken by Nursing End-Tidal CO2 25 Pulse Rate 142 H Pulse Rate [Apical] Pulse Rate [Right Radial] 146 H 142 H 139 H Pulse Rate from SpO2 Sensor Respiratory Rate 26 H 36 H 28 H Respiratory Effort / Characteristics Respiratory Depth Respiratory Pattern Blood Pressure 109/79 Blood Pressure [Left Arm] Blood Pressure [Right Arm] 74/57 L 109/79 Blood Pressure Mean 89 Blood Pressure Mean [Left Arm] Blood Pressure Mean [Right Arm] 62 89 Blood Pressure Position [Left Arm] Pulse Oximetry 100 91 95 Oxygen Delivery Method Mechanical Vent Mechanical Vent Mechanical Vent Fraction of Inspired Oxygen 40 SaO2/FiO2 Ratio 11/26/18 20:34 11/26/18 20:47 11/26/18 21:01 Temperature Temperature Source Sepsis Recent Fever Within 48 Hours Sepsis New/Unexplained Change in Mental Status Sepsis Action Taken by Nursing End-Tidal CO2 29 27 Pulse Rate 139 H 138 H Pulse Rate [Apical] Pulse Rate [Right Radial] 139 H Pulse Rate from SpO2 Sensor Respiratory Rate 33 H 28 H 37 H Respiratory Effort / Characteristics Respiratory Depth Respiratory Pattern Blood Pressure 81/44 L Blood Pressure [Left Arm] Blood Pressure [Right Arm] 70/42 L Blood Pressure Mean 56 Blood Pressure Mean [Left Arm] Blood Pressure Mean [Right Arm] 51 Blood Pressure Position [Left Arm] Pulse Oximetry 87 L 96 100 Oxygen Delivery Method Mechanical Vent Fraction of Inspired Oxygen 40 SaO2/FiO2 Ratio 11/26/18 21:24 11/26/18 21:29 11/26/18 21:52 Temperature 37.1 C 37.1 C Temperature Source Oral Oral Sepsis Recent Fever Within 48 Hours Sepsis New/Unexplained Change in Mental Status Sepsis Action Taken by Nursing End-Tidal CO2 Pulse Rate 138 H Pulse Rate [Apical] 135 H Pulse Rate [Right Radial] 138 H Pulse Rate from SpO2 Sensor Respiratory Rate 26 H 30 H 28 H Respiratory Effort / Characteristics Mechanically Ventilated Respiratory Depth Respiratory Pattern Blood Pressure 78/37 L Blood Pressure [Left Arm] 88/55 L Blood Pressure [Right Arm] 78/37 L Blood Pressure Mean 50 Blood Pressure Mean [Left Arm] 66 Blood Pressure Mean [Right Arm] 50 Blood Pressure Position [Left Arm] Lying Pulse Oximetry 96 98 100 Oxygen Delivery Method Mechanical Vent Mechanical Vent Mechanical Vent Fraction of Inspired Oxygen 40 40 SaO2/FiO2 Ratio 250 11/26/18 22:00 11/26/18 22:05 11/26/18 22:20 Temperature Temperature Source Sepsis Recent Fever Within 48 Hours Sepsis New/Unexplained Change in Mental Status Sepsis Action Taken by Nursing End-Tidal CO2 Pulse Rate 127 H 136 H Pulse Rate [Apical] Pulse Rate [Right Radial] Pulse Rate from SpO2 Sensor Respiratory Rate 24 30 H Respiratory Effort / Characteristics Mechanically Ventilated Respiratory Depth Normal Respiratory Pattern Regular Blood Pressure 88/55 L 89/58 L Blood Pressure [Left Arm] Blood Pressure [Right Arm] Blood Pressure Mean 66 68 Blood Pressure Mean [Left Arm] Blood Pressure Mean [Right Arm] Blood Pressure Position [Left Arm] Pulse Oximetry 98 100 Oxygen Delivery Method Mechanical Vent Mechanical Vent Fraction of Inspired Oxygen 40 40 SaO2/FiO2 Ratio 11/26/18 22:31 11/26/18 22:45 11/26/18 22:51 Temperature Temperature Source Sepsis Recent Fever Within 48 Hours Sepsis New/Unexplained Change in Mental Status Sepsis Action Taken by Nursing End-Tidal CO2 Pulse Rate 137 H 136 H Pulse Rate [Apical] 133 H Pulse Rate [Right Radial] Pulse Rate from SpO2 Sensor Respiratory Rate 20 26 H Respiratory Effort / Characteristics Respiratory Depth Respiratory Pattern Blood Pressure 76/44 L 66/45 L Blood Pressure [Left Arm] 63/36 L Blood Pressure [Right Arm] Blood Pressure Mean 54 52 Blood Pressure Mean [Left Arm] 45 Blood Pressure Mean [Right Arm] Blood Pressure Position [Left Arm] Pulse Oximetry 100 100 Oxygen Delivery Method Fraction of Inspired Oxygen SaO2/FiO2 Ratio 11/26/18 23:21 Temperature Temperature Source Sepsis Recent Fever Within 48 Hours Sepsis New/Unexplained Change in Mental Status Sepsis Action Taken by Nursing End-Tidal CO2 Pulse Rate 136 H Pulse Rate [Apical] Pulse Rate [Right Radial] Pulse Rate from SpO2 Sensor Respiratory Rate 35 H Respiratory Effort / Characteristics Respiratory Depth Respiratory Pattern Blood Pressure Blood Pressure [Left Arm] Blood Pressure [Right Arm] Blood Pressure Mean Blood Pressure Mean [Left Arm] Blood Pressure Mean [Right Arm] Blood Pressure Position [Left Arm] Pulse Oximetry 1 L Oxygen Delivery Method Fraction of Inspired Oxygen 40 SaO2/FiO2 Ratio General: Responsive to painful stimuli. Minimally purposeful. EYES: Pupils 4mm and reactive bilaterally. RESPIRATORY: Tachypneic. Diminished bases. Increased work of breathing CHEST: Tachycardic. Decreased peripheral perfusion. Right upper chest central line in place. : Ugarte catheter in place upon arrival. Limited secondary to acuity Procedures Intubation Time out performed: Yes sedative: none paralytic: Succinylcholine Mg Given: 120 Laryngoscope: other (glidescope) ET Tube Size: 7 ET Tube Uncuffed: No Tube Secured Depth (cm): 23 Tube Secured Location: teeth Tube Placement Confirmation: visualized tube passing through cords, equal breath sounds bilaterally and confirmation by capnometry Patient Tolerated Procedure: well Intubation Complications: other (transient hypoxia) Course 1813: The patient was evaluated in room B1, and a complete history and physical examination were performed. 0: I intubated the patient at this time. Dr. Murphy ICU alerted to patient just prior as well. 2039: I reviewed the patient's case with Dr. Gomez, [facility] Hospitalist. He will evaluate the patient for further management. Consultations Consultation #1: I reviewed the patient's case with Dr. Gomez, [facility] Hospitalist. He will evaluate the patient for further management. Time: 20:40 Administered Medications Enoxaparin Sodium (Lovenox) 40 mg SQ Q24H [facility] Stop: 12/26/18 21:59 Last Admin: 11/26/18 22:45 Dose: 40 mg Documented by: [id number] Norepinephrine Bitartrate 8 mg (/ Dextrose) 508 mls @ 142 mls/hr IV .Q3H35M [facility]; Protocol Stop: 12/26/18 18:29 Last Admin: 11/26/18 23:41 Dose: 0.46 mcg/kg/min, 142 mls/hr Documented by: [id number] Cosigned by: [id number] Titration: 11/26/18 23:41 Dose: 0.45 mcg/kg/min, 137.5 mls/hr Documented by: [id number] Cosigned by: [id number] Titration: 11/26/18 22:55 Dose: 0.45 mcg/kg/min, 137.5 mls/hr Documented by: [id number] Titration: 11/26/18 22:46 Dose: 0.4 mcg/kg/min, 122.2 mls/hr Documented by: [id number] Titration: 11/26/18 20:53 Dose: 0.34 mcg/kg/min, 103.9 mls/hr Documented by: [id number] Titration: 11/26/18 19:25 Dose: 0.3 mcg/kg/min, 91.7 mls/hr Documented by: [id number] Titration: 11/26/18 18:42 Dose: 0.15 mcg/kg/min, 45.8 mls/hr Documented by: [id number] Admin: 11/26/18 18:36 Dose: 0.1 mcg/kg/min, 30.6 mls/hr Documented by: [id number] Cosigned by: [id number] Famotidine 20 mg/ Syringe 5 mls @ 2.5 mls/min IV Q12 [facility] Stop: 12/26/18 22:04 Last Admin: 11/26/18 22:38 Dose: 2.5 mls/min Documented by: [id number] Phenylephrine HCl 20 mg/ (Dextrose) 502 mls @ 56.17 mls/hr IV .Q8H57M PRN; Protocol PRN Reason: TITRATE Stop: 12/26/18 22:36 Last Admin: 11/26/18 23:52 Dose: 0.5 mcg/kg/min, 56.2 mls/hr Documented by: [id number] Cosigned by: [id number] Vasopressin 20 units/ Sodium (Chloride) 101 mls @ 12.12 mls/hr IV .Q8H20M [facility] Stop: 12/26/18 22:36 Last Admin: 11/26/18 23:00 Dose: 0.04 unit/min, 12.1 mls/hr Documented by: [id number] Cosigned by: [id number] Sodium Bicarbonate 150 meq/ (Dextrose) 1,150 mls @ 125 mls/hr IV .Q9H12M [facility] Stop: 12/26/18 23:14 Last Admin: 11/26/18 23:44 Dose: 125 mls/hr Documented by: [id number] Epinephrine HCl 4 mg/ Dextrose 254 mls @ 5.68 mls/hr IV .Q24H PRN; Protocol PRN Reason: TITRATE Stop: 12/26/18 23:26 Last Admin: 11/26/18 23:46 Dose: 0.02 mcg/kg/min, 5.7 mls/hr Documented by: [id number] Cosigned by: [id number] Ascorbic Acid 1,500 mg/Thiamine HCl 100 mg/ Sodium Chloride 104 mls @ 207 mls/hr IV Q6H [facility] Stop: 11/30/18 18:31 Last Admin: 11/27/18 00:21 Dose: 207 mls/hr Documented by: [id number] Hydrocortisone Sodium (Succinate 50 mg/ Syringe) 1 mls @ 4 mls/min IV Q6 [facility] Stop: 12/27/18 00:14 Last Admin: 11/27/18 00:22 Dose: 4 mls/min Documented by: [id number] Discontinued Medications Vancomycin HCl 1,750 mg/ (Sodium Chloride) 535 mls @ 200 mls/hr IV NOW ONE Stop: 11/26/18 21:06 Last Infusion: 11/26/18 22:08 Dose: 0 mls/hr Documented by: [id number] Admin: 11/26/18 19:24 Dose: 200 mls/hr Documented by: [id number] Piperacillin Sod/Tazobactam Sod (Zosyn) 4.5 gm in 120 mls @ 240 mls/hr IV NOW ONE Stop: 11/26/18 19:06 Last Admin: 11/26/18 22:33 Dose: 240 mls/hr Documented by: [id number] Sodium Chloride (Nss 1000ml) 2,000 mls @ 999 mls/hr IV .Q2H1M ONE Stop: 11/26/18 20:57 Last Infusion: 11/26/18 22:50 Dose: 0 mls/hr Documented by: [id number] Admin: 11/26/18 19:27 Dose: 999 mls/hr Documented by: [id number] Parenteral Electrolytes (Normosol-R) 1,000 mls @ 100 mls/hr IV .Q10H [facility] Stop: 12/26/18 19:59 Last Admin: 11/26/18 22:07 Dose: Not Given Documented by: [id number] Famotidine 20 mg/ Syringe 5 mls @ 2.5 mls/min IV Q12H [facility] Stop: 12/26/18 19:59 Last Admin: 11/26/18 22:07 Dose: Not Given Documented by: [id number] Vancomycin HCl 1,000 mg/ (Sodium Chloride) 270 mls @ 125 mls/hr IV Q12H [facility] Stop: 12/26/18 20:14 Last Admin: 11/26/18 22:07 Dose: Not Given Documented by: [id number] Piperacillin Sod/Tazobactam (Sod 3.375 gm/ Dextrose) 115 mls @ 28.75 mls/hr IV Q8H [facility] Stop: 12/26/18 20:14 Last Admin: 11/26/18 22:07 Dose: Not Given Documented by: [id number] Caspofungin 70 mg/ Sodium (Chloride) 260 mls @ 250 mls/hr IV ONE ONE Stop: 11/26/18 22:37 Last Infusion: 11/26/18 23:56 Dose: 0 mls/hr Documented by: [id number] Admin: 11/26/18 22:33 Dose: 250 mls/hr Documented by: [id number] Parenteral Electrolytes (Normosol-R) 1,000 mls @ 125 mls/hr IV .Q8H [facility] Stop: 12/26/18 22:44 Last Infusion: 11/26/18 23:58 Dose: 0 mls/hr Documented by: [id number] Admin: 11/26/18 22:54 Dose: 125 mls/hr Documented by: [id number] Midazolam HCl (Versed) Confirm Administered Dose 2 mg .ROUTE .STK-MED ONE Stop: 11/26/18 19:13 Last Admin: 11/26/18 19:24 Dose: 2 mg Documented by: [id number] Midazolam HCl (Versed) 2 mg IV NOW STA Stop: 11/26/18 19:29 Last Admin: 11/26/18 19:29 Dose: Not Given Documented by: [id number] Miscellaneous () Confirm Administered Dose 1 ea .ROUTE .STK-MED ONE Stop: 11/26/18 18:48 Last Admin: 11/26/18 22:06 Dose: Not Given Documented by: [id number] Sodium Bicarbonate (Sodium Bicarbonate 8.4%) Confirm Administered Dose 50 meq .ROUTE .STK-MED ONE Stop: 11/26/18 23:13 Last Admin: 11/26/18 23:53 Dose: 50 meq Documented by: [id number] Sodium Bicarbonate (Sodium Bicarbonate 8.4%) 100 meq IV NOW STA Stop: 11/26/18 23:14 Last Admin: 11/26/18 23:54 Dose: 100 meq Documented by: [id number] Medical Decision Making Differential Diagnosis Differential diagnosis: Etiologies such as viral syndrome, otitis, pharyngitis, pneumonia, influenza, meningitis, urinary tract infection, sepsis, bacteremia, as well as others were entertained. Home Medications Current Medication List: was personally reviewed by me Laboratory Data Attestation: I reviewed the patient's lab results. Result diagrams: 11/26/18 18:43 11/26/18 23:48 Lab Results 11/26/18 11/26/18 11/26/18 Range/Units 18:30 18:43 18:43 WBC 0.29 L* (4.8-10.8) K/uL RBC 2.77 L (4.7-6.1) M/uL Hgb 8.9 L (14.0-18.0) g/dL POC Hgb 7.8 L (14.0-18.0) g/dl Hct 27.2 L (42-52) % POC Hct 23 L (42-52) % MCV 98.2 (80-100) fL MCH 32.1 (25-34) pg MCHC 32.7 (32-36) g/dL RDW Std Deviation 55.8 H (36.4-46.3) fL RDW Coeff of Darron 15.4 H (11.5-14.5) % Plt Count 55 L (130-400) K/uL MPV 11.7 H (7.4-10.4) fL Immature Gran % (Auto) Cancelled Neut % (Auto) Cancelled Lymph % (Auto) Cancelled Flagler % (Auto) Cancelled Eos % (Auto) Cancelled Baso % (Auto) Cancelled Immature Gran # (Auto) Cancelled Neut # (Auto) Cancelled Lymph # (Auto) Cancelled Flagler # (Auto) Cancelled Eos # (Auto) Cancelled Baso # (Auto) Cancelled Absolute Nucleated RBC 0.05 H (0-0) K/uL Nucleated RBC % (auto) 15.9 % Neutrophils % (Manual) Cancelled Band Neutrophils % Cancelled Lymphocytes % (Manual) Cancelled Prolymphocyte % Cancelled Reactive Lymphs % (Man) Cancelled Monocytes % (Manual) Cancelled Eosinophils % (Manual) Cancelled Basophils % (Manual) Cancelled Metamyelocytes % (Man) Cancelled Myelocytes % (Man) Cancelled Promyelocytes % (Man) Cancelled Blast Cells % (Manual) Cancelled Plasma Cell % (Manual) Cancelled Other Cells % Cancelled Nucleated RBC % Cancelled Neutrophils # (Manual) Cancelled Band Neutrophils # Cancelled Total Absolute Neuts Cancelled Lymphocytes # (Manual) Cancelled Prolymphocyte # Cancelled Reactive Lymphs # Cancelled Total Abs Lymphocytes Cancelled Monocytes # (Manual) Cancelled Eosinophils # (Manual) Cancelled Basophils # (Manual) Cancelled Metamyelocytes # (Man) Cancelled Myelocytes # (Manual) Cancelled Promyelocytes # (Man) Cancelled Blast Cells # (Man) Cancelled Plasma Cell # (Manual) Cancelled Other Cells # Cancelled Nucleated RBCs # (Man) Cancelled Hypersegmented Neuts Cancelled Hyposegmented Neuts Cancelled Hypogranular Neuts Cancelled Large Granular Lymphs Cancelled # Lrg Granular Lymphs Cancelled Hairy Cells Cancelled Smudge Cells Cancelled Toxic Granulation Cancelled Toxic Vacuolation Cancelled Dohle Bodies Cancelled Moi Rods Cancelled Platelet Estimate Decreased (Normal) Hypogranular Platelets Cancelled Clumped Platelets Cancelled Giant Platelets Cancelled Platelet Satelliting Cancelled RBC Morphology Cancelled Polychromasia Cancelled Hypochromasia Cancelled Poikilocytosis Cancelled Basophilic Stippling Cancelled Anisocytosis Cancelled Microcytosis Cancelled Macrocytosis Cancelled Spherocytes Cancelled Pappenheimer Bodies Cancelled Sickle Cells Cancelled Target Cells Cancelled Tear Drop Cells Cancelled Ovalocytes Cancelled Stomatocytes Cancelled Dunn-Lyden Bodies Cancelled Echinocytes Cancelled Acanthocytes (Spur) Cancelled Rouleaux Cancelled RBC Agglutinates Cancelled Schistocytes Cancelled RBC Morph Comment Cancelled Sezary Cell Cancelled PT 17.4 H (9.0-12.0) Seconds INR 1.8 H (0.9-1.1) APTT 25.9 (21.0-31.0) Seconds PTT Ratio 1.0 Sample Site POC pH 7.42 (7.35-7.45) POC pCO2 18 L (35-46) mmHg POC pO2 191 H (80-95) mmHg POC HCO3 12 L (19-24) betty/L POC Total CO2 12 L (24-31) mEq/l POC Base Excess -13.0 L (-9-1.8) betty/L POC ABG O2 Sat (90-95) % Daryl Test VBG pH (7.36-7.41) VBG pCO2 (38-50) mmHg VBG pO2 mmHg VBG HCO3 mmol/L VBG O2 Saturation % VBG Base Excess mEq/L Barometric Pressure mm/Hg O2 Delivery Device POC O2 Rate Minute Ventilation POC FiO2 % Tidal Volume PEEP POC Sodium 138 (135-144) mEq/L Sodium (136-145) mmol/L POC Potassium 3.9 (3.3-5.0) mEq/L Potassium (3.5-5.1) mmol/L Chloride (98-107) mmol/L Carbon Dioxide (21-32) mmol/L Anion Gap (3-11) BUN (7-18) mg/dl Creatinine (0.6-1.4) mg/dl Est Cr Clr Drug Dosing Est GFR ( Amer) Est GFR (Non-Af Amer) BUN/Creatinine Ratio (10-20) Glucose (70-99) mg/dl Lactate (0.4-2.0) mmol/L Calcium (8.5-10.1) mg/dl Ionized Calcium (1.12-1.32) mmol/L Phosphorus (2.5-4.9) mg/dl Magnesium (1.8-2.4) mg/dl Total Bilirubin (0.2-1) mg/dl AST (15-37) U/L ALT (12-78) U/L Alkaline Phosphatase (45-117) U/L Troponin I (0-0.045) ng/ml NT-Pro-B Natriuret Pep (0-900) pg/ml Total Protein (6.4-8.2) gm/dl Albumin (3.4-5.0) gm/dl Globulin (2.5-4.0) gm/dl Albumin/Globulin Ratio (0.9-2) Lipase (73-393) U/L Nasal Screen MRSA (PCR) (Negative) 11/26/18 11/26/18 11/26/18 Range/Units 18:43 18:43 18:43 WBC (4.8-10.8) K/uL RBC (4.7-6.1) M/uL Hgb (14.0-18.0) g/dL POC Hgb (14.0-18.0) g/dl Hct (42-52) % POC Hct (42-52) % MCV (80-100) fL MCH (25-34) pg MCHC (32-36) g/dL RDW Std Deviation (36.4-46.3) fL RDW Coeff of Darron (11.5-14.5) % Plt Count (130-400) K/uL MPV (7.4-10.4) fL Immature Gran % (Auto) Neut % (Auto) Lymph % (Auto) [place] % (Auto) Eos % (Auto) Baso % (Auto) Immature Gran # (Auto) Neut # (Auto) Lymph # (Auto) [place] # (Auto) Eos # (Auto) Baso # (Auto) Absolute Nucleated RBC (0-0) K/uL Nucleated RBC % (auto) % Neutrophils % (Manual) Band Neutrophils % Lymphocytes % (Manual) Prolymphocyte % Reactive Lymphs % (Man) Monocytes % (Manual) Eosinophils % (Manual) Basophils % (Manual) Metamyelocytes % (Man) Myelocytes % (Man) Promyelocytes % (Man) Blast Cells % (Manual) Plasma Cell % (Manual) Other Cells % Nucleated RBC % Neutrophils # (Manual) Band Neutrophils # Total Absolute Neuts Lymphocytes # (Manual) Prolymphocyte # Reactive Lymphs # Total Abs Lymphocytes Monocytes # (Manual) Eosinophils # (Manual) Basophils # (Manual) Metamyelocytes # (Man) Myelocytes # (Manual) Promyelocytes # (Man) Blast Cells # (Man) Plasma Cell # (Manual) Other Cells # Nucleated RBCs # (Man) Hypersegmented Neuts Hyposegmented Neuts Hypogranular Neuts Large Granular Lymphs # Lrg Granular Lymphs Hairy Cells Smudge Cells Toxic Granulation Toxic Vacuolation Dohle Bodies Moi Rods Platelet Estimate (Normal) Hypogranular Platelets Clumped Platelets Giant Platelets Platelet Satelliting RBC Morphology Polychromasia Hypochromasia Poikilocytosis Basophilic Stippling Anisocytosis Microcytosis Macrocytosis Spherocytes Pappenheimer Bodies Sickle Cells Target Cells Tear Drop Cells Ovalocytes Stomatocytes Dunn-Lyden Bodies Echinocytes Acanthocytes (Spur) Rouleaux RBC Agglutinates Schistocytes RBC Morph Comment Sezary Cell PT (9.0-12.0) Seconds INR (0.9-1.1) APTT (21.0-31.0) Seconds PTT Ratio Sample Site POC pH (7.35-7.45) POC pCO2 (35-46) mmHg POC pO2 (80-95) mmHg POC HCO3 (19-24) betty/L POC Total CO2 (24-31) mEq/l POC Base Excess (-9-1.8) betty/L POC ABG O2 Sat (90-95) % Daryl Test VBG pH 7.26 L (7.36-7.41) VBG pCO2 35 L (38-50) mmHg VBG pO2 24 mmHg VBG HCO3 15 mmol/L VBG O2 Saturation < 60.0 % VBG Base Excess -11.2 mEq/L Barometric Pressure 719.7 mm/Hg O2 Delivery Device POC O2 Rate Minute Ventilation POC FiO2 % Tidal Volume PEEP POC Sodium (135-144) mEq/L Sodium 139 (136-145) mmol/L POC Potassium (3.3-5.0) mEq/L Potassium 3.9 (3.5-5.1) mmol/L Chloride 109 H (98-107) mmol/L Carbon Dioxide 15 L (21-32) mmol/L Anion Gap 15.0 H (3-11) BUN 41 H (7-18) mg/dl Creatinine 1.39 (0.6-1.4) mg/dl Est Cr Clr Drug Dosing Not Reportable Est GFR ( Amer) 59.1 Est GFR (Non-Af Amer) 51.0 BUN/Creatinine Ratio 29.4 H (10-20) Glucose 141 H (70-99) mg/dl Lactate 9.0 H* (0.4-2.0) mmol/L Calcium 8.1 L (8.5-10.1) mg/dl Ionized Calcium (1.12-1.32) mmol/L Phosphorus (2.5-4.9) mg/dl Magnesium (1.8-2.4) mg/dl Total Bilirubin 1.1 H (0.2-1) mg/dl AST 269 H (15-37) U/L ALT 162 H (12-78) U/L Alkaline Phosphatase 332 H (45-117) U/L Troponin I 0.146 H* (0-0.045) ng/ml NT-Pro-B Natriuret Pep 1784 H (0-900) pg/ml Total Protein 5.5 L (6.4-8.2) gm/dl Albumin 1.7 L (3.4-5.0) gm/dl Globulin 3.8 (2.5-4.0) gm/dl Albumin/Globulin Ratio 0.5 L (0.9-2) Lipase 123 (73-393) U/L Nasal Screen MRSA (PCR) (Negative) 11/26/18 11/26/18 11/26/18 Range/Units 22:05 23:11 23:48 WBC (4.8-10.8) K/uL RBC (4.7-6.1) M/uL Hgb (14.0-18.0) g/dL POC Hgb (14.0-18.0) g/dl Hct (42-52) % POC Hct (42-52) % MCV (80-100) fL MCH (25-34) pg MCHC (32-36) g/dL RDW Std Deviation (36.4-46.3) fL RDW Coeff of Darron (11.5-14.5) % Plt Count (130-400) K/uL MPV (7.4-10.4) fL Immature Gran % (Auto) Neut % (Auto) Lymph % (Auto) [place] % (Auto) Eos % (Auto) Baso % (Auto) Immature Gran # (Auto) Neut # (Auto) Lymph # (Auto) [place] # (Auto) Eos # (Auto) Baso # (Auto) Absolute Nucleated RBC (0-0) K/uL Nucleated RBC % (auto) % Neutrophils % (Manual) Band Neutrophils % Lymphocytes % (Manual) Prolymphocyte % Reactive Lymphs % (Man) Monocytes % (Manual) Eosinophils % (Manual) Basophils % (Manual) Metamyelocytes % (Man) Myelocytes % (Man) Promyelocytes % (Man) Blast Cells % (Manual) Plasma Cell % (Manual) Other Cells % Nucleated RBC % Neutrophils # (Manual) Band Neutrophils # Total Absolute Neuts Lymphocytes # (Manual) Prolymphocyte # Reactive Lymphs # Total Abs Lymphocytes Monocytes # (Manual) Eosinophils # (Manual) Basophils # (Manual) Metamyelocytes # (Man) Myelocytes # (Manual) Promyelocytes # (Man) Blast Cells # (Man) Plasma Cell # (Manual) Other Cells # Nucleated RBCs # (Man) Hypersegmented Neuts Hyposegmented Neuts Hypogranular Neuts Large Granular Lymphs # Lrg Granular Lymphs Hairy Cells Smudge Cells Toxic Granulation Toxic Vacuolation Dohle Bodies Moi Rods Platelet Estimate (Normal) Hypogranular Platelets Clumped Platelets Giant Platelets Platelet Satelliting RBC Morphology Polychromasia Hypochromasia Poikilocytosis Basophilic Stippling Anisocytosis Microcytosis Macrocytosis Spherocytes Pappenheimer Bodies Sickle Cells Target Cells Tear Drop Cells Ovalocytes Stomatocytes Dunn-Lyden Bodies Echinocytes Acanthocytes (Spur) Rouleaux RBC Agglutinates Schistocytes RBC Morph Comment Sezary Cell PT (9.0-12.0) Seconds INR (0.9-1.1) APTT (21.0-31.0) Seconds PTT Ratio Sample Site Art Line POC pH 7.30 L (7.35-7.45) POC pCO2 22 L (35-46) mmHg POC pO2 133 H (80-95) mmHg POC HCO3 11 L (19-24) betty/L POC Total CO2 12 L (24-31) mEq/l POC Base Excess -15.0 L (-9-1.8) betty/L POC ABG O2 Sat 99.0 H (90-95) % Daryl Test Pass VBG pH (7.36-7.41) VBG pCO2 (38-50) mmHg VBG pO2 mmHg VBG HCO3 mmol/L VBG O2 Saturation % VBG Base Excess mEq/L Barometric Pressure mm/Hg O2 Delivery Device Ventilator POC O2 Rate 14 Minute Ventilation 16.4 POC FiO2 40 % Tidal Volume 500 PEEP 5 POC Sodium (135-144) mEq/L Sodium 141 (136-145) mmol/L POC Potassium (3.3-5.0) mEq/L Potassium 4.1 (3.5-5.1) mmol/L Chloride 112 H (98-107) mmol/L Carbon Dioxide 15 L (21-32) mmol/L Anion Gap 15.0 H (3-11) BUN 46 H (7-18) mg/dl Creatinine 1.65 H (0.6-1.4) mg/dl Est Cr Clr Drug Dosing 41.7 Est GFR ( Amer) 48.0 Est GFR (Non-Af Amer) 41.4 BUN/Creatinine Ratio 27.8 H (10-20) Glucose 114 H (70-99) mg/dl Lactate (0.4-2.0) mmol/L Calcium 7.1 L (8.5-10.1) mg/dl Ionized Calcium (1.12-1.32) mmol/L Phosphorus 1.6 L (2.5-4.9) mg/dl Magnesium 1.6 L (1.8-2.4) mg/dl Total Bilirubin (0.2-1) mg/dl AST (15-37) U/L ALT (12-78) U/L Alkaline Phosphatase (45-117) U/L Troponin I (0-0.045) ng/ml NT-Pro-B Natriuret Pep (0-900) pg/ml Total Protein (6.4-8.2) gm/dl Albumin (3.4-5.0) gm/dl Globulin (2.5-4.0) gm/dl Albumin/Globulin Ratio (0.9-2) Lipase (73-393) U/L Nasal Screen MRSA (PCR) Negative (Negative) 11/26/18 11/26/18 Range/Units 23:48 23:49 WBC (4.8-10.8) K/uL RBC (4.7-6.1) M/uL Hgb (14.0-18.0) g/dL POC Hgb (14.0-18.0) g/dl Hct (42-52) % POC Hct (42-52) % MCV (80-100) fL MCH (25-34) pg MCHC (32-36) g/dL RDW Std Deviation (36.4-46.3) fL RDW Coeff of Darron (11.5-14.5) % Plt Count (130-400) K/uL MPV (7.4-10.4) fL Immature Gran % (Auto) Neut % (Auto) Lymph % (Auto) [place] % (Auto) Eos % (Auto) Baso % (Auto) Immature Gran # (Auto) Neut # (Auto) Lymph # (Auto) [place] # (Auto) Eos # (Auto) Baso # (Auto) Absolute Nucleated RBC (0-0) K/uL Nucleated RBC % (auto) % Neutrophils % (Manual) Band Neutrophils % Lymphocytes % (Manual) Prolymphocyte % Reactive Lymphs % (Man) Monocytes % (Manual) Eosinophils % (Manual) Basophils % (Manual) Metamyelocytes % (Man) Myelocytes % (Man) Promyelocytes % (Man) Blast Cells % (Manual) Plasma Cell % (Manual) Other Cells % Nucleated RBC % Neutrophils # (Manual) Band Neutrophils # Total Absolute Neuts Lymphocytes # (Manual) Prolymphocyte # Reactive Lymphs # Total Abs Lymphocytes Monocytes # (Manual) Eosinophils # (Manual) Basophils # (Manual) Metamyelocytes # (Man) Myelocytes # (Manual) Promyelocytes # (Man) Blast Cells # (Man) Plasma Cell # (Manual) Other Cells # Nucleated RBCs # (Man) Hypersegmented Neuts Hyposegmented Neuts Hypogranular Neuts Large Granular Lymphs # Lrg Granular Lymphs Hairy Cells Smudge Cells Toxic Granulation Toxic Vacuolation Dohle Bodies Moi Rods Platelet Estimate (Normal) Hypogranular Platelets Clumped Platelets Giant Platelets Platelet Satelliting RBC Morphology Polychromasia Hypochromasia Poikilocytosis Basophilic Stippling Anisocytosis Microcytosis Macrocytosis Spherocytes Pappenheimer Bodies Sickle Cells Target Cells Tear Drop Cells Ovalocytes Stomatocytes Dunn-Lyden Bodies Echinocytes Acanthocytes (Spur) Rouleaux RBC Agglutinates Schistocytes RBC Morph Comment Sezary Cell PT (9.0-12.0) Seconds INR (0.9-1.1) APTT (21.0-31.0) Seconds PTT Ratio Sample Site POC pH (7.35-7.45) POC pCO2 (35-46) mmHg POC pO2 (80-95) mmHg POC HCO3 (19-24) betty/L POC Total CO2 (24-31) mEq/l POC Base Excess (-9-1.8) betty/L POC ABG O2 Sat (90-95) % Daryl Test VBG pH (7.36-7.41) VBG pCO2 (38-50) mmHg VBG pO2 mmHg VBG HCO3 mmol/L VBG O2 Saturation % VBG Base Excess mEq/L Barometric Pressure mm/Hg O2 Delivery Device POC O2 Rate Minute Ventilation POC FiO2 % Tidal Volume PEEP POC Sodium (135-144) mEq/L Sodium (136-145) mmol/L POC Potassium (3.3-5.0) mEq/L Potassium (3.5-5.1) mmol/L Chloride (98-107) mmol/L Carbon Dioxide (21-32) mmol/L Anion Gap (3-11) BUN (7-18) mg/dl Creatinine (0.6-1.4) mg/dl Est Cr Clr Drug Dosing Est GFR ( Amer) Est GFR (Non-Af Amer) BUN/Creatinine Ratio (10-20) Glucose (70-99) mg/dl Lactate 9.2 H* (0.4-2.0) mmol/L Calcium (8.5-10.1) mg/dl Ionized Calcium 1.00 L (1.12-1.32) mmol/L Phosphorus (2.5-4.9) mg/dl Magnesium (1.8-2.4) mg/dl Total Bilirubin (0.2-1) mg/dl AST (15-37) U/L ALT (12-78) U/L Alkaline Phosphatase (45-117) U/L Troponin I (0-0.045) ng/ml NT-Pro-B Natriuret Pep (0-900) pg/ml Total Protein (6.4-8.2) gm/dl Albumin (3.4-5.0) gm/dl Globulin (2.5-4.0) gm/dl Albumin/Globulin Ratio (0.9-2) Lipase (73-393) U/L Nasal Screen MRSA (PCR) (Negative) Imaging Data Radiologist's Impression: Radiology results as stated below per my review and the radiologist's interpretation: XR chest 1V portable CLINICAL HISTORY: Shortness of breath COMPARISON STUDY: 11/03/2018 FINDINGS: The heart is normal in size. There is mild aortic tortuosity/ectasia. There is no failure. There is no focal pulmonary consolidation. There are no pleural effusions. There is no pneumothorax. There is a right-sided central venous catheter.[ IMPRESSION: No active disease in the chest. Electronically signed by: Jose Montalvo M.D. 11/26/2018 6:41 PM ECG Data Attestation: I personally reviewed and interpreted this ECG as follows: Indication: other (cardiac arrest) Rate (beats per minute): 149 Rhythm: sinus tachycardia Findings: + RBBB (incomplete) and + ST depression (diffuse) Blood Pressure Blood Pressure Findings: Low blood pressure Blood Pressure Disposition: further management by hospitalist MARYA Narrative Patient is a 68-year-old gentleman with stage IV pancreatic cancer presenting from home EMS was called for shortness of breath. Evidently syncopized there and had a V. fib cardiac arrest. 2 rounds of CPR with return of circulation. No medications or shocks were delivered. Was responsive to verbal stimuli after this although with difficulty breathing and low saturations. Placed on CPAP by EMS. Patient in a atrial tachycardia upon arrival 150's. Reportedly the p atient from records is on Xarelto for DVT left knee. From medical records. Was here several weeks ago with worsening edema. Placed on some Lasix at that time. Evidently today patient called 911 for shortness of breath other events as above transpired. Upon arrival here patient somewhat responsive on CPAP respiratory distress; but not answering questions. Started on norepinephrine for hypotension. Utilized his right chest central line. Given fluid. Discussion with family regarding his wishes. They state full code. Chest x-ray shows no karl evidence of pneumonia or gross fluid overload here. Chronic Ugarte in place upon arrival. Is febrile. Concern for sepsis. Also post cardiac arrest with declining mental status while here. Discussed with family proceed with intubation. Is transiently becoming hypoxic prior to intubation. Critical care was alerted as well as the hospitalist. Patient has detectable troponin likely combination of demand and his recent cardiac arrest. Lactate is elevated consistent with shock and post cardiac arrest state. Initial ABG not significantly acidotic. Repeat VBG shows worsening acidosis. CBC still pending. Neutropenic with fever. Hospitalist was also contacted. Given broad- spectrum vancomycin and Zosyn for antibiotic coverage given his chemotherapy use, critical state, and fever. 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 Impression & Plan Septic shock, Cardiac arrest, Neutropenic fever Critical Care Time I have personally spent greater than 75 minutes of critical care time in the direct management of this patient. This includes bedside care, interpretation of diagnostic studies, and testing, discussion with consultants, patient, and family members, and other required patient management activities. This 75 minutes is in excess of all separately billable procedures. Critical Care Time: Yes Total Critical Care Time: 75 Discharge Plan Visit Data *Final* Discharge Date/Time: 11/26/18 21:35 Chief Complaint: Cardiac Arrest/CPR ED Provider: Murphy Elias Discharge Problem: Septic shock, Cardiac arrest, Neutropenic fever Patient Disposition: Admitted As Inpatient Discharge Instructions Interventions: ED Discharge Assessment Last Done: 11/26/18 21:35 Sepsis Evaluation Sepsis screening result: No Definite Risk Current stage of sepsis: septic shock Persistent hypotension: SBP < 90 mmHg and MAP < 65 mmHg Possible source: unknown Focused Exam Date exam was performed: 11/26/18 Time exam was performed: 21:32 Vital Signs Temp Pulse Pulse Pulse Resp BP BP 11/26/18 23:21 136 H 35 H 11/26/18 22:51 133 H 63/36 L 11/26/18 22:45 136 H 26 H 66/45 L 11/26/18 22:31 137 H 20 76/44 L 11/26/18 22:20 136 H 30 H 89/58 L 11/26/18 22:00 127 H 24 88/55 L 11/26/18 21:52 37.1 C 135 H 28 H 88/55 L 11/26/18 21:29 138 H 30 H 78/37 L 11/26/18 21:24 37.1 C 138 H 26 H 11/26/18 21:01 138 H 37 H 11/26/18 20:47 139 H 28 H 11/26/18 20:34 139 H 33 H 81/44 L 11/26/18 20:18 139 H 28 H 11/26/18 20:00 142 H 142 H 36 H 109/79 11/26/18 19:42 146 H 26 H 11/26/18 19:21 149 H 26 H 11/26/18 19:16 152 H 74/46 L 11/26/18 19:12 11/26/18 19:10 150 H 96/50 L 11/26/18 19:05 145 H 113/64 11/26/18 19:00 145 H 17 105/52 L 11/26/18 18:55 151 H 81/44 L 11/26/18 18:50 148 H 63/42 L 11/26/18 18:45 151 H 74/45 L 11/26/18 18:42 164 H 11/26/18 18:40 156 H 73/45 L 11/26/18 18:39 152 H 75/47 L 11/26/18 18:36 147 H 56/33 L 11/26/18 18:31 152 H 11/26/18 18:30 142 H 33 H 11/26/18 18:26 155 H 64/38 L 11/26/18 18:22 157 H 11/26/18 18:19 38.1 C H 151 H 66/46 L BP Pulse Ox 11/26/18 23:21 1 L 11/26/18 22:51 11/26/18 22:45 100 11/26/18 22:31 100 11/26/18 22:20 100 11/26/18 22:00 98 11/26/18 21:52 100 11/26/18 21:29 98 11/26/18 21:24 78/37 L 96 11/26/18 21:01 100 11/26/18 20:47 70/42 L 96 11/26/18 20:34 87 L 11/26/18 20:18 109/79 95 11/26/18 20:00 91 11/26/18 19:42 74/57 L 100 11/26/18 19:21 71/41 L 96 11/26/18 19:16 98 11/26/18 19:12 100 11/26/18 19:10 100 11/26/18 19:05 96 11/26/18 19:00 100 11/26/18 18:55 100 11/26/18 18:50 81 L 11/26/18 18:45 100 11/26/18 18:42 99 11/26/18 18:40 100 11/26/18 18:39 100 11/26/18 18:36 97 11/26/18 18:31 94 11/26/18 18:30 96 11/26/18 18:26 97 11/26/18 18:22 100 11/26/18 18:19 97 138P, 78/37, RR30 on vent Respiratory exam: Present patient mechanically ventilated Cardiovascular exam: Present tachycardia Capillary refill: > 3 Seconds (Delayed) Peripheral pulse strength: Weak Peripheral pulse location: Radial Skin exam: pallor Bedside Monitoring Bedside ultrasound performed: No Fluid responsiveness: not performed The scribe's documentation has been prepared under my direction and personally reviewed by me in its entirety. I confirm that the note above accurately reflects all work, treatment, procedures, and medical decision making performed by me.
[2018-11-27] MEDS ORDERED: MAGNESIUM SULFATE / D5W 1 GM/100 ML BAG IV ONE (00:33)
[2018-11-27] MEDS ORDERED: CALCIUM CHLORIDE 10% 1,000 MG in SODIUM CHLORIDE 0.9% 50 ML IV STA (00:33)
[2018-11-27 00:42] LABS: Hematocrit (blood only) 21.4 % (42-52); Mean Corpuscular Hgb Conc 32.7 g/dL (32-36); Mean Corpuscular Volume 96.4 fL (80-100); Mean Platelet Volume 11.2 fL (7.4-10.4); Nucleated RBC # (auto) 0.07 K/uL (0-0); Nucleated RBC % (auto) 8.9 %; Platelet Count 32 K/uL (130-400); RDW Coefficient of Variation 15.5 % (11.5-14.5); RDW Standard Deviation 54.3 fL (36.4-46.3); Red Blood Count 2.22 M/uL (4.7-6.1); White Blood Count 0.82 K/uL (4.8-10.8)
[2018-11-27] MEDS ORDERED: Heparin Adult STANDARD Wt-Based Dextrose 5% 25,000 units/500 mL IV SCH (01:00)
[2018-11-27] MEDS ORDERED: VANCOMYCIN CONSULT ACTIVE PRN (01:16)
[2018-11-27] MEDS ORDERED: PIPERACILLIN/TAZOBACTAM 4.5 GM in DEXTROSE 5% 100 ML IV STA (01:16)
[2018-11-27] MEDS ORDERED: PIPERACILL/TAZOBAC CONSULT ACTIVE PRN (01:16)
--- NOTE | 2018-11-27 01:23 | History & Physical Report ---
Date of Service November 27, 2018 The patient was seen, examined and admitted on 11/26/18 Assessment & Plan (1) Admitted to intensive care unit: The patient is admitted to the ICU status post cardiac arrest, neutropenic fever with septic shock- Neutropenic precautions. Continue levo fed infusion begun in the ED. Continue IV fluid boluses begun in ED. Famotidine 20 mg IV every 12 hours. Vancomycin IV per pharmacokinetic monitoring. Zosyn 4.5 g IV every 12 hours. Levofloxacin 500 mg IV every 24 hours. Serial CBC with differential, chemistry profile, magnesium, PT, PTT, INR, ABG. Follow all urine and blood cultures. Consult spanner operator Dr. Murphy. Remainder of orders and notations per ICU. Present on Admission?: Yes (2) Cardiac arrest: As above. Complete echocardiogram ordered Present on Admission?: Yes (3) Septic shock: Antibiotics and pressors as above. Remainder of orders per ICU Present on Admission?: Yes (4) Neutropenic fever: Pancreatic cancer post chemotherapy, neutropenic precautions as noted. Imaging studies CT of head, chest, abdomen and pelvis ordered and will be done in route to the ICU. Present on Admission?: Yes History of Present Illness Chief Complaint: The patient presented to the emergency department via EMS after he was found in the field to develop a cardiac arrest after an acute complaint of shortness of breath. Primary Care Provider: Cral Lucero MD The patient is a 68-year-old male who called EMS as he was developing shortness of breath. EMS reports that when the patient stood up he had a syncopal episode and collapsed, and went into cardiac arrest. He had CPR x2, and was found to be in V. fib. Upon arrival in the emergency department, he was febrile to temperature 102.6, hypertensive and blood sugar was found to be 211. He was initially placed on CPAP in the ED, and then was intubated. Allergies Allergy/AdvReac Type Severity Reaction Status Date / Time No Known Allergies Allergy Verified 11/26/18 19:06 Home Medications Home Medications Medication Instructions Recorded Confirmed Type amlodipine-benazepril 1 cap PO QAM 04/20/18 11/26/18 History cyanocobalamin (vitamin B-12) 1,000 mcg PO QAM 07/14/18 11/26/18 History [Vitamin B-12] Novolog Flexpen U-100 Insulin 0 unit SUBCUT TIDM PRN 07/22/18 11/26/18 History aspirin [Aspir-81] 81 mg PO QAM 08/29/18 11/26/18 History docusate sodium [Colace] 100 mg PO BID 08/29/18 11/26/18 History oxycodone 10 mg PO Q4 PRN 08/29/18 11/26/18 History Xarelto 20 mg PO DAILY 10/21/18 11/26/18 History lactulose 10 gm PO TID PRN #480 ml 10/29/18 11/26/18 Rx polyethylene glycol 3350 [Miralax] 17 g PO DAILY 30 Days #30 ea 10/29/18 11/26/18 Rx finasteride 5 mg PO DAILY 11/26/18 11/26/18 History insulin glargine [Basaglar KwikPen 0 unit SUBCUT DIRECTED 11/26/18 11/26/18 History U-100 Insulin] ketoconazole 1 dose TOPICAL DIRECTED 11/26/18 11/26/18 History megestrol 20 ml PO QAM 11/26/18 11/26/18 History pravastatin 80 mg PO HS 11/26/18 11/26/18 History sennosides-docusate sodium [Senna 2 tab PO HS 11/26/18 11/26/18 History Laxative-Stool Softener] Past Med/Surg History Medical History Constipation Acute kidney injury Hyperglycemia due to type 2 diabetes mellitus Hospital-acquired pneumonia Abdominal pain Sepsis (Acute) Leukocytosis (Acute) Lactic acidosis (Acute) DVT prophylaxis Diabetes mellitus HTN (hypertension) Pancreatic cancer Common bile duct obstruction secondary to biliary stent Colon cancer screening Elevated LFTs Epigastric abdominal pain DVT prophylaxis Choledocholithiasis (Acute) Epigastric abdominal pain (Acute) Encounter for pre-operative examination Corneal abrasion of both eyes Acute pancreatitis Pancreatic cancer metastasized to liver Hyperlipidemia Essential hypertension DM w/o complication type II GRICELDA (obstructive sleep apnea) Acute urinary retention (Inactive) Constipation (Inactive) Dysphagia (Inactive) Epigastric abdominal pain (Inactive) Hypoglycemia (Inactive) Neutropenia (Inactive) Pancreatic cancer (Inactive) Basal cell carcinoma (BCC) of forehead S/P EXCISION Constipation Diabetes mellitus, type 2 History of pancreatitis RECENT; 07/2018 FELT 2/2 CBD/PANCREATIC DUCT STRICTURES PER [facility] HOSPITALIST NOTE- SURGEON AWARE Hyperlipidemia Hypertension Osteoarthritis Pancreatic cancer WITH LIVER METS Peripheral neuropathy left leg -sore to touch; no difficulty walking Sleep apnea CPAP 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 S/P MOHS PROCEDURE Surgical History H/O Moh's micrographic surgery for skin cancer H/O carpal tunnel repair B/L History of ERCP ERCP WITH BILIARY STENT PLACEMENT/EUS/SPHINCTEROTOMY= 07/14/18= GRADE VIEW 1, MAC 3, ETT 7.5 AT [facility] History of colonoscopy History of tonsillectomy History of tooth extraction WISDOM TEETH Family History Mother Gastric cancer Brother Gastric cancer Social History Preferred Language: [place] Communication Ability: Impaired Mortgage Processor Required: No Beliefs That Will Affect Care: None marital status: Current Living Situation: Spouse Current Living Situation Comment: House current occupational status: retired 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 Physical Exam Physical Exam: The patient is intubated and sedated, normocephalic and atraumatic, lying in bed. HEENT--PERRL, EOMI, mucous membranes and oropharynx dry. Neck-- No JVD. No bruits. Thyroid normal, trachea midline, no adenopathy. Heart--tachycardic. Normal S1 and S2. No murmurs, rubs or gallops. Lungs--few coarse breath sounds bilaterally. Respirations controlled by ventilator. Abdomen--normal bowel sounds and soft. Nontender. Nondistended. Extremities--no cyanosis or clubbing. No edema. Dermatologic--normal skin turgor, normal color, no abnormal lymph nodes, no rash. Neurologic--limited exam Rheumatologic--deferred Psychiatric--deferred Results & Data Vital Signs (Past 12 Hours) Vital Signs Temp Pulse Pulse Pulse Resp BP BP 11/26/18 23:21 136 H 35 H 11/26/18 22:51 133 H 63/36 L 11/26/18 22:45 136 H 26 H 66/45 L 11/26/18 22:31 137 H 20 76/44 L 11/26/18 22:20 136 H 30 H 89/58 L 11/26/18 22:00 127 H 24 88/55 L 11/26/18 21:52 37.1 C 135 H 28 H 88/55 L 11/26/18 21:29 138 H 30 H 78/37 L 11/26/18 21:24 37.1 C 138 H 26 H 11/26/18 21:01 138 H 37 H 11/26/18 20:47 139 H 28 H 11/26/18 20:34 139 H 33 H 81/44 L 11/26/18 20:18 139 H 28 H 11/26/18 20:00 142 H 142 H 36 H 109/79 11/26/18 19:42 146 H 26 H 11/26/18 19:21 149 H 26 H 11/26/18 19:16 152 H 74/46 L 11/26/18 19:12 11/26/18 19:10 150 H 96/50 L 11/26/18 19:05 145 H 113/64 11/26/18 19:00 145 H 17 105/52 L 11/26/18 18:55 151 H 81/44 L 11/26/18 18:50 148 H 63/42 L 11/26/18 18:45 151 H 74/45 L 11/26/18 18:42 164 H 11/26/18 18:40 156 H 73/45 L 11/26/18 18:39 152 H 75/47 L 11/26/18 18:36 147 H 56/33 L 11/26/18 18:31 152 H 11/26/18 18:30 142 H 33 H 11/26/18 18:26 155 H 64/38 L 11/26/18 18:22 157 H 11/26/18 18:19 38.1 C H 151 H 66/46 L BP Pulse Ox 11/26/18 23:21 1 L 11/26/18 22:51 11/26/18 22:45 100 11/26/18 22:31 100 11/26/18 22:20 100 11/26/18 22:00 98 11/26/18 21:52 100 11/26/18 21:29 98 11/26/18 21:24 78/37 L 96 11/26/18 21:01 100 11/26/18 20:47 70/42 L 96 11/26/18 20:34 87 L 11/26/18 20:18 109/79 95 11/26/18 20:00 91 11/26/18 19:42 74/57 L 100 11/26/18 19:21 71/41 L 96 11/26/18 19:16 98 11/26/18 19:12 100 11/26/18 19:10 100 11/26/18 19:05 96 11/26/18 19:00 100 11/26/18 18:55 100 11/26/18 18:50 81 L 11/26/18 18:45 100 11/26/18 18:42 99 11/26/18 18:40 100 11/26/18 18:39 100 11/26/18 18:36 97 11/26/18 18:31 94 11/26/18 18:30 96 11/26/18 18:26 97 11/26/18 18:22 100 11/26/18 18:19 97 Laboratory Results Laboratory Results WBC 0.82 K/uL (4.8-10.8) L* 11/26/18 23:48 RBC 2.22 M/uL (4.7-6.1) L 11/26/18 23:48 Hgb 7.0 g/dL (14.0-18.0) L 11/26/18 23:48 POC Hgb 7.8 g/dl (14.0-18.0) L 11/26/18 18:30 Hct 21.4 % (42-52) L 11/26/18 23:48 POC Hct 23 % (42-52) L 11/26/18 18:30 MCV 96.4 fL (80-100) 11/26/18 23:48 MCH 31.5 pg (25-34) 11/26/18 23:48 MCHC 32.7 g/dL (32-36) 11/26/18 23:48 RDW Std Deviation 54.3 fL (36.4-46.3) H 11/26/18 23:48 RDW Coeff of Darron 15.5 % (11.5-14.5) H 11/26/18 23:48 Plt Count 32 K/uL (130-400) L 11/26/18 23:48 MPV 11.2 fL (7.4-10.4) H 11/26/18 23:48 Immature Gran % (Auto) Cancelled 11/26/18 18:43 Neut % (Auto) Cancelled 11/26/18 18:43 Lymph % (Auto) Cancelled 11/26/18 18:43 [place] % (Auto) Cancelled 11/26/18 18:43 Eos % (Auto) Cancelled 11/26/18 18:43 Baso % (Auto) Cancelled 11/26/18 18:43 Immature Gran # (Auto) Cancelled 11/26/18 18:43 Neut # (Auto) Cancelled 11/26/18 18:43 Lymph # (Auto) Cancelled 11/26/18 18:43 [place] # (Auto) Cancelled 11/26/18 18:43 Eos # (Auto) Cancelled 11/26/18 18:43 Baso # (Auto) Cancelled 11/26/18 18:43 Absolute Nucleated RBC 0.07 K/uL (0-0) H 11/26/18 23:48 Nucleated RBC % (auto) 8.9 % 11/26/18 23:48 Neutrophils % (Manual) Cancelled 11/26/18 18:43 Band Neutrophils % Cancelled 11/26/18 18:43 Lymphocytes % (Manual) Cancelled 11/26/18 18:43 Prolymphocyte % Cancelled 11/26/18 18:43 Reactive Lymphs % (Man) Cancelled 11/26/18 18:43 Monocytes % (Manual) Cancelled 11/26/18 18:43 Eosinophils % (Manual) Cancelled 11/26/18 18:43 Basophils % (Manual) Cancelled 11/26/18 18:43 Metamyelocytes % (Man) Cancelled 11/26/18 18:43 Myelocytes % (Man) Cancelled 11/26/18 18:43 Promyelocytes % (Man) Cancelled 11/26/18 18:43 Blast Cells % (Manual) Cancelled 11/26/18 18:43 Plasma Cell % (Manual) Cancelled 11/26/18 18:43 Other Cells % Cancelled 11/26/18 18:43 Nucleated RBC % Cancelled 11/26/18 18:43 Neutrophils # (Manual) Cancelled 11/26/18 18:43 Band Neutrophils # Cancelled 11/26/18 18:43 Total Absolute Neuts Cancelled 11/26/18 18:43 Lymphocytes # (Manual) Cancelled 11/26/18 18:43 Prolymphocyte # Cancelled 11/26/18 18:43 Reactive Lymphs # Cancelled 11/26/18 18:43 Total Abs Lymphocytes Cancelled 11/26/18 18:43 Monocytes # (Manual) Cancelled 11/26/18 18:43 Eosinophils # (Manual) Cancelled 11/26/18 18:43 Basophils # (Manual) Cancelled 11/26/18 18:43 Metamyelocytes # (Man) Cancelled 11/26/18 18:43 Myelocytes # (Manual) Cancelled 11/26/18 18:43 Promyelocytes # (Man) Cancelled 11/26/18 18:43 Blast Cells # (Man) Cancelled 11/26/18 18:43 Plasma Cell # (Manual) Cancelled 11/26/18 18:43 Other Cells # Cancelled 11/26/18 18:43 Nucleated RBCs # (Man) Cancelled 11/26/18 18:43 Hypersegmented Neuts Cancelled 11/26/18 18:43 Hyposegmented Neuts Cancelled 11/26/18 18:43 Hypogranular Neuts Cancelled 11/26/18 18:43 Large Granular Lymphs Cancelled 11/26/18 18:43 # Lrg Granular Lymphs Cancelled 11/26/18 18:43 Hairy Cells Cancelled 11/26/18 18:43 Smudge Cells Cancelled 11/26/18 18:43 Toxic Granulation Cancelled 11/26/18 18:43 Toxic Vacuolation Cancelled 11/26/18 18:43 Dohle Bodies Cancelled 11/26/18 18:43 Moi Rods Cancelled 11/26/18 18:43 Platelet Estimate Decreased (Normal) 11/26/18 18:43 Hypogranular Platelets Cancelled 11/26/18 18:43 Clumped Platelets Cancelled 11/26/18 18:43 Giant Platelets Cancelled 11/26/18 18:43 Platelet Satelliting Cancelled 11/26/18 18:43 RBC Morphology Cancelled 11/26/18 18:43 Polychromasia Cancelled 11/26/18 18:43 Hypochromasia Cancelled 11/26/18 18:43 Poikilocytosis Cancelled 11/26/18 18:43 Basophilic Stippling Cancelled 11/26/18 18:43 Anisocytosis Cancelled 11/26/18 18:43 Microcytosis Cancelled 11/26/18 18:43 Macrocytosis Cancelled 11/26/18 18:43 Spherocytes Cancelled 11/26/18 18:43 Pappenheimer Bodies Cancelled 11/26/18 18:43 Sickle Cells Cancelled 11/26/18 18:43 Target Cells Cancelled 11/26/18 18:43 Tear Drop Cells Cancelled 11/26/18 18:43 Ovalocytes Cancelled 11/26/18 18:43 Stomatocytes Cancelled 11/26/18 18:43 Dunn-Harviell Bodies Cancelled 11/26/18 18:43 Echinocytes Cancelled 11/26/18 18:43 Acanthocytes (Spur) Cancelled 11/26/18 18:43 Rouleaux Cancelled 11/26/18 18:43 RBC Agglutinates Cancelled 11/26/18 18:43 Schistocytes Cancelled 11/26/18 18:43 RBC Morph Comment Cancelled 11/26/18 18:43 Sezary Cell Cancelled 11/26/18 18:43 PT 17.4 Seconds (9.0-12.0) H 11/26/18 18:43 INR 1.8 (0.9-1.1) H 11/26/18 18:43 APTT 25.9 Seconds (21.0-31.0) 11/26/18 18:43 PTT Ratio 1.0 11/26/18 18:43 Sample Site Art Line 11/26/18 23:11 POC pH 7.30 (7.35-7.45) L 11/26/18 23:11 POC pCO2 22 mmHg (35-46) L 11/26/18 23:11 POC pO2 133 mmHg (80-95) H 11/26/18 23:11 POC HCO3 11 betty/L (19-24) L 11/26/18 23:11 POC Total CO2 12 mEq/l (24-31) L 11/26/18 23:11 POC Base Excess -15.0 betty/L (-9-1.8) L 11/26/18 23:11 POC ABG O2 Sat 99.0 % (90-95) H 11/26/18 23:11 Daryl Test Pass 11/26/18 23:11 VBG pH 7.26 (7.36-7.41) L 11/26/18 18:43 VBG pCO2 35 mmHg (38-50) L 11/26/18 18:43 VBG pO2 24 mmHg 11/26/18 18:43 VBG HCO3 15 mmol/L 11/26/18 18:43 VBG O2 Saturation < 60.0 % 11/26/18 18:43 VBG Base Excess -11.2 mEq/L 11/26/18 18:43 Barometric Pressure 719.7 mm/Hg 11/26/18 18:43 O2 Delivery Device Ventilator 11/26/18 23:11 POC O2 Rate 14 11/26/18 23:11 Minute Ventilation 16.4 11/26/18 23:11 POC FiO2 40 % 11/26/18 23:11 Tidal Volume 500 11/26/18 23:11 PEEP 5 11/26/18 23:11 POC Sodium 138 mEq/L (135-144) 11/26/18 18:30 Sodium 141 mmol/L (136-145) 11/26/18 23:48 POC Potassium 3.9 mEq/L (3.3-5.0) 11/26/18 18:30 Potassium 4.1 mmol/L (3.5-5.1) 11/26/18 23:48 Chloride 112 mmol/L (98-107) H 11/26/18 23:48 Carbon Dioxide 15 mmol/L (21-32) L 11/26/18 23:48 Anion Gap 15.0 (3-11) H 11/26/18 23:48 BUN 46 mg/dl (7-18) H 11/26/18 23:48 Creatinine 1.65 mg/dl (0.6-1.4) H 11/26/18 23:48 Est Cr Clr Drug Dosing 41.7 ml/min 11/26/18 23:48 Est GFR ( Amer) 48.0 11/26/18 23:48 Est GFR (Non-Af Amer) 41.4 11/26/18 23:48 BUN/Creatinine Ratio 27.8 (10-20) H 11/26/18 23:48 Glucose 114 mg/dl (70-99) H 11/26/18 23:48 Lactate 9.2 mmol/L (0.4-2.0) H* 11/26/18 23:49 Calcium 7.1 mg/dl (8.5-10.1) L 11/26/18 23:48 Ionized Calcium 1.00 mmol/L (1.12-1.32) L 11/26/18 23:48 Phosphorus 1.6 mg/dl (2.5-4.9) L 11/26/18 23:48 Magnesium 1.6 mg/dl (1.8-2.4) L 11/26/18 23:48 Total Bilirubin 1.1 mg/dl (0.2-1) H 11/26/18 18:43 AST 269 U/L (15-37) H 11/26/18 18:43 ALT 162 U/L (12-78) H 11/26/18 18:43 Alkaline Phosphatase 332 U/L (45-117) H 11/26/18 18:43 Troponin I 0.146 ng/ml (0-0.045) H* 11/26/18 18:43 NT-Pro-B Natriuret Pep 1784 pg/ml (0-900) H 11/26/18 18:43 Total Protein 5.5 gm/dl (6.4-8.2) L 11/26/18 18:43 Albumin 1.7 gm/dl (3.4-5.0) L 11/26/18 18:43 Globulin 3.8 gm/dl (2.5-4.0) 11/26/18 18:43 Albumin/Globulin Ratio 0.5 (0.9-2) L 11/26/18 18:43 Lipase 123 U/L (73-393) 11/26/18 18:43 Nasal Screen MRSA (PCR) Negative (Negative) 11/26/18 22:05 Blood Type A Positive 11/26/18 20:35 Crossmatch See Detail 11/26/18 20:35 Diagnostic Findings [facility], [place] [phone] XRay Report Patient: FLAKITO DUARTE Date: 11/26/18 MR#: [id number]: [address] Acct ID:[id number]: Date: 1950City Zip: [place] [address] Age: 68Location: ED Sex: M Room/Bed: Att Phy: Diagnosis: CARDIAC ASSESSMENT Iliana Phy: Carl Lucero MDService Date: 11/26/18 Fam Phy: Interpreting Phy: Jose Montalvo MD Admit Phy: Ordering Phy: Murphy Elias M.D. cc: ~ XR chest 1V portable CLINICAL HISTORY: Shortness of breath COMPARISON STUDY: 11/03/2018 FINDINGS: The heart is normal in size. There is mild aortic tortuosity/ectasia. There is no failure. There is no focal pulmonary consolidation. There are no pleural effusions. There is no pneumothorax. There is a right-sided central venous catheter.[ IMPRESSION: No active disease in the chest. Electronically signed by: Jose Montalvo M.D. 11/26/2018 6:41 PM Dictated: 11/26/181839 Transcribed: 11/26/181839 Code Status & VTE Plan Code Status DO NOT RESUSCITATE VTE Prophylaxis Plan VTE Prophylaxis will be ordered: Yes Critical Care Time Total critical care time was 40 minutes Critical Care Time: Yes Total Critical Care Time: 40
[2018-11-27] MEDS ORDERED: VANCOMYCIN HCL 1,000 MG in SODIUM CHLORIDE 0.9% 250 ML IV SCH (01:30)
[2018-11-27] MEDS: Heparin IV Standard *NO* Bolus IV SCH ×4 (01:34→10:06)
[2018-11-27] MEDS ORDERED: fentaNYL citrate 100 MCG/2 ML VIAL IV PRN (01:59)
[2018-11-27] MEDS ORDERED: MIDAZOLAM HCL 1 MG/ML 2ML VIAL IV PRN (01:59)
[2018-11-27 02:17] LABS: Eosinophils # (auto) 0.01 K/uL (0-0.5); Eosinophils % (auto) 1.2 %; Lymphocytes # (auto) 0.06 K/uL (1.2-3.4); Lymphocytes % (auto) 7.3 %; Monocytes # (auto) 0.06 K/uL (0.11-0.59); Monocytes % (auto) 7.3 %; Neutrophils # (auto) 0.69 K/uL (1.4-6.5); Neutrophils % (auto) 84.2 %
[2018-11-27] MEDS: NOREPINEPHRINE BIT INJ 16 MG in DEXTROSE 5% 500 ML IV SCH ×2 (02:55→08:55)
[2018-11-27] MEDS ORDERED: NORMOSOL-R 250 ML IV ONE (03:20)
[2018-11-27] MEDS ORDERED: ACETAMINOPHEN 65 ML IV ONE (03:20)
[2018-11-27 03:30] LABS: Appearance Urine Turbid (Clear); Bacteria Urine Automated Negative (Negative); Blood Urine 2+ (Negative); Color Urine Dark Yellow; Epithelial Cell Urine Auto >30 /lpf (0-5); Glucose Urine UA Trace (Negative); Ketones Urine Trace (Negative); Leukocyte Esterase Urine Trace (Negative); Nitrite Urine Positive (Negative); Protein Urine 2+ (Negative); Urobilinogen Urine Negative (Negative); WBC Urine Automated >30 /hpf (0-5)
[2018-11-27 03:37] LABS: Bilirubin Urine 1+ (Negative)
[2018-11-27 03:39] LABS: Ictotest Urine Positive (Negative)
[2018-11-27 03:49] LABS: Hematocrit (blood only) 22.1 % (42-52); Hemoglobin 7.3 g/dL (14.0-18.0); Mean Corpuscular Volume 96.5 fL (80-100); Nucleated RBC # (auto) 0.12 K/uL (0-0); Nucleated RBC % (auto) 4.6 %; RDW Coefficient of Variation 15.7 % (11.5-14.5); RDW Standard Deviation 55.5 fL (36.4-46.3); Red Blood Count 2.29 M/uL (4.7-6.1); White Blood Count 2.64 K/uL (4.8-10.8)
[2018-11-27 03:55] LABS: RBC Urine Automated 0-4 /hpf (0-4)
[2018-11-27 03:56] LABS: Amorphous Sediment Urine Present (None Prsent); Calcium Oxalate Crystals Urine Present (None Prsent)
[2018-11-27 04:10] LABS: INR 1.9 (0.9-1.1); Partial Thromboplastin Ratio 2.6; Prothrombin Time 18.7 Seconds (9.0-12.0)
[2018-11-27 04:12] LABS: Mean Platelet Volume 10.8 fL (7.4-10.4); Platelet Count 30 K/uL (130-400)
[2018-11-27 04:13] LABS: BUN Creatinine Ratio 22.6 (10-20); Calcium 7.3 mg/dl (8.5-10.1); Creatinine Clr Calc Pharmacy 32.9 ml/min; Est GFR (African American) 36.1; Est GFR (Non-African American) 31.1; Magnesium 1.8 mg/dl (1.8-2.4); Phosphorus 2.1 mg/dl (2.5-4.9)
[2018-11-27] MEDS: PIPERACILLIN/TAZOBACTAM 4.5 GM in DEXTROSE 5% 100 ML IV SCH ×2 (04:15→12:05)
[2018-11-27] MEDS ORDERED: CARBOHYDRATES FOR HYPOGLYCEMIA PO PRN (04:45)
[2018-11-27] MEDS ORDERED: INSULIN REGULAR 250 UNITS in SODIUM CHLORIDE 0.9% 247.5 ML IV SCH (04:45)
[2018-11-27] MEDS ORDERED: GLUCOSE 40% GEL 15 GM TUBE PO PRN (04:45)
[2018-11-27] MEDS ORDERED: GLUCOSE 10 TABS/TUBE PO PRN (04:45)
[2018-11-27] MEDS ORDERED: GLUCAGON FOR INJ 1 MG VIAL IM PRN (04:45)
[2018-11-27] MEDS ORDERED: NovoLIN-R BOLUS FROM BAG IV ONE (04:45)
[2018-11-27] MEDS ORDERED: DEXTROSE 50% 50 ML SYRINGE IV PRN (04:45)
[2018-11-27 04:53] LABS: Beta-Hydroxybutyrate 3.08 mg/dl (0.2-2.81)
[2018-11-27 05:02] VITALS: TEMP 99
[2018-11-27] MEDS: PHENYLEPHRINE HCL 20 MG in DEXTROSE 5% 500 ML IV PRN ×3 (05:15→13:09)
[2018-11-27] MEDS: VASOPRESSIN 20 UNITS in 0.9 % SODIUM CHLORIDE 100 ML IV SCH ×2 (05:17→13:43)
[2018-11-27 05:18] LABS: Partial Thromboplastin Time 69.4 Seconds (21.0-31.0)
[2018-11-27 06:01] LABS: Hematocrit (blood only) 24.1 % (42-52)
--- NOTE | 2018-11-27 06:24 | Critical Care Progress Note ---
Date of Service November 27, 2018 Assessment & Plan (1) Admitted to intensive care unit: Reason Critically Ill: 68-year-old male with recent cardiac arrest: Ventricular fibrillation with return of spontaneous circulation PLAN: Neuro: Acute encephalopathy: Improved -Patient able to shake head yes or no to responses indicates he is in pain Resp: Acute hypoxic respiratory failure: Resolved Acute respiratory insufficiency -Secondary to profound metabolic acidosis -Patient consented for bronchoscopy: No longer indicated Concern for pulmonary embolism secondary to malignancy -Discontinuing empiric anticoagulation secondary to progression into early disseminated intravascular coagulation CV: Cardiac arrest secondary to ventricular fibrillation -Cardiac enzymes reviewed -Echocardiogram: Reviewed Elevated cardiac enzymes Elevated BNP Fluids/Renal: Acute kidney injury: Worsening Profound high gap metabolic acidosis: Severe lactic acidosis ID: Sepsis with multisystem organ failure Gangrenous cholecystitis -Discussed with general surgery no indication for surgery as patient is moribund, no role in percutaneous draining given necrosis Bacteremia: Gram-negative and gram-positive organisms in all bottles GI/Nutrition: Transaminitis -Shock liver Heme: Venous thromboembolic disease Elevated INR -Secondary to hepatic insufficiency Stage IV pancreatic cancer -Active chemotherapy Neutropenia -I discussed the case with Dr. Hernandez, we both are in agreement that this is an end-stage terminal disease without meaningful chance of recovery. If we will continue active treatment we can give granulocyte colony-stimulating factor Endocrine: Profound hyperglycemia Vascular access: Arterial line and left internal jugular catheter Code Status: DO NOT RESUSCITATE in event of cardiac arrest I had an extensive discussion with the patient's . She understands that the patient is in a terminal condition and we are artificially prolonging his life with life-sustaining efforts at this time. He is on 4 vasoactive medications, to hemodynamically unstable for surgery without option for therapeutic intervention. We are waiting for additional family members and congregational leaders at which point we will proceed with a terminal extubation. We are instituting comfort measures. I have personally spent 85 minutes of critical care time in the direct management of this patient. This is a life/limb threatening event. This incl udes time spent evaluating patient, direct bedside care, chart review, placing orders, interpretation of diagnostic studies, discussion with consultants, patient, and/or family members regarding treatment decisions, as well as other required patient management activities. This time is exclusive of all separately billable procedures, and teaching time and separate from and in addition to any other critical care service time. Subjective Overnight had increasing vasoactive medication requirement. The patient's condition was discussed with Dr. De Los Santos of general surgery, both him and I are in agreement that the patient is not an appropriate candidate for surgery. Given that the patient actually has a necrotic gallbladder percutaneous draining is not a viable option either. This is unfortunately a grim prognosis and a nonsurvivable injury. Review of Systems Review of Systems: Unobtainable due to endotracheal tube Physical Exam Physical Exam: General: Elderly male who appears his stated age I have reviewed the recorded vital signs Neurological: RASS score: 0, Moves all 4 extremities, Psychological: Glascow Coma Scale: Eyes: 4, Verbal 1T, Motor 6, Total 11 T patient is following complex commands. Eyes: Pupils are equal, round and reactive to light, anicteric sclera. Symmetrical lids. HENT: Oropharynx obscured by endotracheal tube, mucous membranes are moist. Neck: Supple. Symmetric. trachea midline. No thyromegaly. Central line present in left neck Cardiovascular: Decreased peripheral perfusion. Distal pulses and capillary refill delayed. Respiratory: Tachypnea. Breath sounds are equal. Gastrointestinal: Soft. Tender in the right upper quadrant Lymphatic: No cervical lymphadenopathy. Musculoskeletal: No deformity. No clubbing nor cyanosis. Results & Data Vital Signs (Past 12 Hours) Vital Signs Temp Pulse Pulse Pulse Resp BP BP 11/27/18 04:54 124 H 35 H 11/27/18 04:30 134 H 11/27/18 04:15 37.2 C 132 H 24 113/60 11/27/18 04:00 37.9 C H 133 H 30 H 116/55 L 11/27/18 03:45 37.9 C H 128 H 28 H 105/54 L 11/27/18 03:30 38 C H 134 H 24 101/57 L 11/27/18 03:20 39.2 C H 136 H 105/55 L 11/27/18 03:18 137 H 112/51 L 11/27/18 03:16 136 H 108/56 L 11/27/18 03:14 136 H 105/55 L 11/27/18 03:12 39.2 C H 135 H 20 97/62 L 11/27/18 03:10 136 H 102/50 L 11/27/18 03:08 136 H 101/59 L 11/27/18 03:06 134 H 96/55 L 11/27/18 03:04 136 H 36 H 11/27/18 03:03 136 H 95/50 L 11/27/18 03:00 135 H 86/73 L 11/27/18 02:59 134 H 87/56 L 11/27/18 02:56 135 H 81/53 L 11/27/18 02:54 135 H 90/47 L 11/27/18 02:52 135 H 88/43 L 11/27/18 02:50 135 H 84/47 L 11/27/18 02:49 132 H 88/54 L 11/27/18 02:46 136 H 100/54 L 11/27/18 02:44 135 H 107/88 11/27/18 02:42 136 H 98/53 L 11/27/18 02:40 134 H 97/50 L 11/27/18 02:38 139 H 80/34 L 11/27/18 02:36 134 H 79/69 L 11/27/18 02:34 137 H 94/60 L 11/27/18 02:32 135 H 105/53 L 11/27/18 02:30 136 H 104/52 L 11/27/18 02:28 136 H 109/51 L 11/27/18 02:26 136 H 102/52 L 11/27/18 02:24 135 H 99/55 L 11/27/18 02:22 137 H 108/52 L 11/27/18 02:21 136 H 11/27/18 02:19 138 H 98/46 L 11/27/18 02:16 134 H 94/55 L 11/27/18 02:15 137 H 89/56 L 11/27/18 02:12 137 H 98/44 L 11/27/18 02:10 135 H 98/47 L 11/27/18 02:08 139 H 111/53 L 11/27/18 02:06 139 H 102/59 L 11/27/18 02:04 138 H 105/52 L 11/27/18 02:02 140 H 112/63 11/27/18 02:00 140 H 100/68 11/27/18 01:58 138 H 116/53 L 11/27/18 01:57 138 H 116/57 L 11/27/18 01:54 138 H 109/56 L 11/27/18 01:52 137 H 113/57 L 11/27/18 01:50 137 H 113/61 11/27/18 01:48 136 H 105/60 11/27/18 01:46 137 H 114/58 L 11/27/18 01:44 137 H 104/57 L 11/27/18 01:42 137 H 116/52 L 11/27/18 01:40 136 H 108/53 L 11/27/18 01:39 137 H 116/88 11/27/18 01:36 135 H 120/54 L 11/27/18 01:35 136 H 129/121 H 11/27/18 01:31 135 H 129/66 11/27/18 01:30 135 H 11/27/18 01:28 138 H 110/62 11/27/18 01:26 135 H 141/66 H 11/27/18 01:24 135 H 120/62 11/27/18 01:22 134 H 105/76 11/27/18 01:19 130 H 113/108 H 11/27/18 01:16 131 H 77/50 L 11/27/18 01:14 132 H 67/58 L 11/27/18 01:11 131 H 84/51 L 11/27/18 01:07 134 H 110/52 L 11/27/18 01:04 133 H 98/49 L 11/27/18 01:02 134 H 95/49 L 11/27/18 01:01 134 H 97/55 L 11/27/18 01:00 135 H 11/27/18 00:58 135 H 96/46 L 11/27/18 00:56 135 H 100/44 L 11/27/18 00:54 135 H 92/47 L 11/27/18 00:53 136 H 99/41 L 11/27/18 00:50 139 H 96/41 L 11/27/18 00:49 135 H 92/45 L 11/27/18 00:45 135 H 66/58 L 11/27/18 00:40 120 H 68/44 L 11/27/18 00:38 120 H 70/48 L 11/27/18 00:37 120 H 72/44 L 11/27/18 00:34 120 H 68/40 L 11/27/18 00:32 120 H 79/44 L 11/27/18 00:30 120 H 72/47 L 11/27/18 00:28 120 H 74/49 L 11/27/18 00:27 123 H 77/67 L 11/27/18 00:24 121 H 70/49 L 11/27/18 00:22 121 H 68/48 L 11/27/18 00:20 121 H 79/66 L 11/27/18 00:19 123 H 73/43 L 11/27/18 00:16 122 H 85/45 L 11/27/18 00:14 122 H 71/46 L 11/27/18 00:12 123 H 88/46 L 11/27/18 00:10 123 H 72/48 L 11/27/18 00:08 122 H 84/52 L 11/27/18 00:06 123 H 79/52 L 11/27/18 00:04 123 H 83/43 L 11/26/18 23:21 136 H 35 H 11/26/18 22:51 133 H 63/36 L 11/26/18 22:45 136 H 26 H 66/45 L 11/26/18 22:31 137 H 20 76/44 L 11/26/18 22:20 136 H 30 H 89/58 L 11/26/18 22:00 127 H 24 88/55 L 11/26/18 21:52 37.1 C 135 H 28 H 88/55 L 11/26/18 21:29 138 H 30 H 78/37 L 11/26/18 21:24 37.1 C 138 H 26 H 11/26/18 21:01 138 H 37 H 11/26/18 20:47 139 H 28 H 11/26/18 20:34 139 H 33 H 81/44 L 11/26/18 20:18 139 H 28 H 11/26/18 20:00 142 H 142 H 36 H 109/79 11/26/18 19:42 146 H 26 H 11/26/18 19:21 149 H 26 H 11/26/18 19:16 152 H 74/46 L 11/26/18 19:12 11/26/18 19:10 150 H 96/50 L 11/26/18 19:05 145 H 113/64 11/26/18 19:00 145 H 17 105/52 L 11/26/18 18:55 151 H 81/44 L 11/26/18 18:50 148 H 63/42 L 11/26/18 18:45 151 H 74/45 L 11/26/18 18:42 164 H 11/26/18 18:40 156 H 73/45 L 11/26/18 18:39 152 H 75/47 L 11/26/18 18:36 147 H 56/33 L 11/26/18 18:31 152 H 11/26/18 18:30 142 H 33 H 11/26/18 18:26 155 H 64/38 L BP Pulse Ox 11/27/18 04:54 100 11/27/18 04:30 100 11/27/18 04:15 100 11/27/18 04:00 100 11/27/18 03:45 100 11/27/18 03:30 100 11/27/18 03:20 100 11/27/18 03:18 100 11/27/18 03:16 100 11/27/18 03:14 100 11/27/18 03:12 100 11/27/18 03:10 100 11/27/18 03:08 100 11/27/18 03:06 100 11/27/18 03:04 100 11/27/18 03:03 100 11/27/18 03:00 100 11/27/18 02:59 100 11/27/18 02:56 100 11/27/18 02:54 100 11/27/18 02:52 100 11/27/18 02:50 100 11/27/18 02:49 100 11/27/18 02:46 100 11/27/18 02:44 100 11/27/18 02:42 100 11/27/18 02:40 100 11/27/18 02:38 100 11/27/18 02:36 100 11/27/18 02:34 100 11/27/18 02:32 100 11/27/18 02:30 100 11/27/18 02:28 100 11/27/18 02:26 100 11/27/18 02:24 100 11/27/18 02:22 100 11/27/18 02:21 100 11/27/18 02:19 100 11/27/18 02:16 100 11/27/18 02:15 100 11/27/18 02:12 100 11/27/18 02:10 100 11/27/18 02:08 100 11/27/18 02:06 100 11/27/18 02:04 100 11/27/18 02:02 100 11/27/18 02:00 100 11/27/18 01:58 100 11/27/18 01:57 100 11/27/18 01:54 100 11/27/18 01:52 100 11/27/18 01:50 100 11/27/18 01:48 100 11/27/18 01:46 100 11/27/18 01:44 100 11/27/18 01:42 100 11/27/18 01:40 100 11/27/18 01:39 100 11/27/18 01:36 100 11/27/18 01:35 100 11/27/18 01:31 100 11/27/18 01:30 100 11/27/18 01:28 100 11/27/18 01:26 100 11/27/18 01:24 100 11/27/18 01:22 100 11/27/18 01:19 100 11/27/18 01:16 100 11/27/18 01:14 100 11/27/18 01:11 100 11/27/18 01:07 100 11/27/18 01:04 100 11/27/18 01:02 100 11/27/18 01:01 100 11/27/18 01:00 100 11/27/18 00:58 100 20 00:56 100 11/27/18 00:54 100 20 00:53 100 20 00:50 100 20 00:49 100 20 00:45 100 2019 00:40 100 2019 00:38 100 20 00:37 100 20 00:34 100 20 00:32 100 20 00:30 100 20 00:28 100 20 00:27 100 20 00:24 100 20 00:22 100 20 00:20 100 20 00:19 100 20 00:16 100 20 00:14 100 20 00:12 100 00:10 100 11/27/18 00:08 100 11/27/18 00:06 100 11/27/18 00:04 100 11/26/18 23:21 1 L 11/26/18 22:51 11/26/18 22:45 100 11/26/18 22:31 100 11/26/18 22:20 100 11/26/18 22:00 98 11/26/18 21:52 100 11/26/18 21:29 98 11/26/18 21:24 78/37 L 96 11/26/18 21:01 100 11/26/18 20:47 70/42 L 96 11/26/18 20:34 87 L 11/26/18 20:18 109/79 95 11/26/18 20:00 91 11/26/18 19:42 74/57 L 100 11/26/18 19:21 71/41 L 96 11/26/18 19:16 98 11/26/18 19:12 100 11/26/18 19:10 100 11/26/18 19:05 96 11/26/18 19:00 100 11/26/18 18:55 100 11/26/18 18:50 81 L 11/26/18 18:45 100 11/26/18 18:42 99 11/26/18 18:40 100 11/26/18 18:39 100 11/26/18 18:36 97 11/26/18 18:31 94 11/26/18 18:30 96 11/26/18 18:26 97 Laboratory Results 11/27/18 11/27/18 11/27/18 Range/Units 11:30 10:37 10:12 WBC (4.8-10.8) K/uL RBC (4.7-6.1) M/uL Hgb (14.0-18.0) g/dL POC Hgb (14.0-18.0) g/dl Hct (42-52) % POC Hct (42-52) % MCV (80-100) fL MCH (25-34) pg MCHC (32-36) g/dL RDW Std Deviation (36.4-46.3) fL RDW Coeff of Darron (11.5-14.5) % Plt Count (130-400) K/uL MPV (7.4-10.4) fL Immature Gran % (Auto) Neut % (Auto) Lymph % (Auto) [place] % (Auto) Eos % (Auto) Baso % (Auto) Immature Gran # (Auto) Neut # (Auto) Lymph # (Auto) [place] # (Auto) Eos # (Auto) Baso # (Auto) Absolute Nucleated RBC (0-0) K/uL Nucleated RBC % (auto) % Neutrophils % (Manual) Band Neutrophils % Lymphocytes % (Manual) Prolymphocyte % Reactive Lymphs % (Man) Monocytes % (Manual) Eosinophils % (Manual) Basophils % (Manual) Metamyelocytes % (Man) Myelocytes % (Man) Promyelocytes % (Man) Blast Cells % (Manual) Plasma Cell % (Manual) Other Cells % Nucleated RBC % Neutrophils # (Manual) Band Neutrophils # Total Absolute Neuts Lymphocytes # (Manual) Prolymphocyte # Reactive Lymphs # Total Abs Lymphocytes Monocytes # (Manual) Eosinophils # (Manual) Basophils # (Manual) Metamyelocytes # (Man) Myelocytes # (Manual) Promyelocytes # (Man) Blast Cells # (Man) Plasma Cell # (Manual) Other Cells # Nucleated RBCs # (Man) Hypersegmented Neuts Hyposegmented Neuts Hypogranular Neuts Large Granular Lymphs # Lrg Granular Lymphs Hairy Cells Smudge Cells Blood Smear Review Toxic Granulation Toxic Vacuolation Dohle Bodies Moi Rods Platelet Estimate (Normal) Hypogranular Platelets Clumped Platelets Giant Platelets Platelet Satelliting RBC Morphology Polychromasia Hypochromasia Poikilocytosis Basophilic Stippling Anisocytosis Microcytosis Macrocytosis Spherocytes Pappenheimer Bodies Sickle Cells Target Cells Tear Drop Cells Ovalocytes Stomatocytes [place] Bodies Echinocytes Acanthocytes (Spur) Rouleaux RBC Agglutinates Schistocytes RBC Morph Comment Sezary Cell PT (9.0-12.0) Seconds INR (0.9-1.1) APTT > 139.0 H* (21.0-31.0) Seconds PTT Ratio > 5.1 Fibrinogen (184-400) mg/dl Fibrin Degrad Products (<10) mcg/ml D-Dimer (0-500) ug/L FEU Sample Site POC pH (7.35-7.45) POC pCO2 (35-46) mmHg POC pO2 (80-95) mmHg POC HCO3 (19-24) betty/L POC Total CO2 (24-31) mEq/l POC Base Excess (-9-1.8) betty/L POC ABG O2 Sat (90-95) % Daryl Test VBG pH (7.36-7.41) VBG pCO2 (38-50) mmHg VBG pO2 mmHg VBG HCO3 mmol/L VBG O2 Saturation % VBG Base Excess mEq/L Barometric Pressure mm/Hg O2 Delivery Device POC O2 Rate Minute Ventilation POC FiO2 % Tidal Volume PEEP POC Sodium (135-144) mEq/L Sodium (136-145) mmol/L POC Potassium (3.3-5.0) mEq/L Potassium (3.5-5.1) mmol/L Chloride (98-107) mmol/L Carbon Dioxide (21-32) mmol/L Anion Gap (3-11) BUN (7-18) mg/dl Creatinine (0.6-1.4) mg/dl Est Cr Clr Drug Dosing Est GFR ( Amer) Est GFR (Non-Af Amer) BUN/Creatinine Ratio (10-20) Glucose (70-99) mg/dl POC Glucose (other) 605 H* 590 H* (70-99) mg/dl Lactate (0.4-2.0) mmol/L Calcium (8.5-10.1) mg/dl Ionized Calcium (1.12-1.32) mmol/L Phosphorus (2.5-4.9) mg/dl Magnesium (1.8-2.4) mg/dl Total Bilirubin (0.2-1) mg/dl Direct Bilirubin (0-0.2) mg/dl AST (15-37) U/L ALT (12-78) U/L Alkaline Phosphatase (45-117) U/L Troponin I (0-0.045) ng/ml NT-Pro-B Natriuret Pep (0-900) pg/ml Total Protein (6.4-8.2) gm/dl Albumin (3.4-5.0) gm/dl Globulin (2.5-4.0) gm/dl Albumin/Globulin Ratio (0.9-2) Lipase (73-393) U/L Beta-Hydroxybutyric Acd (0.2-2.81) mg/dl Urine Color Urine Appearance (Clear) Urine pH (4.5-7.5) Ur Specific [place] (1.000-1.030) Urine Protein (Negative) Urine Glucose (UA) (Negative) Urine Ketones (Negative) Urine Blood (Negative) Urine Nitrite (Negative) Urine Bilirubin (Negative) Urine Urobilinogen (Negative) Ur Leukocyte Esterase (Negative) Urine WBC (Auto) (0-5) /hpf Urine RBC (Auto) (0-4) /hpf U Hyaline Cast (Auto) (0-5) /lpf U Epithel Cells (Auto) (0-5) /lpf Urine Bacteria (Auto) (Negative) Calcium Oxalate Crystal (None Prsent) Amorphous Sediment (None Prsent) Urine Yeast Nasal Screen MRSA (PCR) (Negative) Blood Type Blood Type Recheck Antibody Screen Crossmatch 11/27/18 11/27/18 11/27/18 Range/Units 09:39 08:35 05:51 WBC (4.8-10.8) K/uL RBC (4.7-6.1) M/uL Hgb (14.0-18.0) g/dL POC Hgb (14.0-18.0) g/dl Hct (42-52) % POC Hct (42-52) % MCV (80-100) fL MCH (25-34) pg MCHC (32-36) g/dL RDW Std Deviation (36.4-46.3) fL RDW Coeff of Darron (11.5-14.5) % Plt Count (130-400) K/uL MPV (7.4-10.4) fL Immature Gran % (Auto) Neut % (Auto) Lymph % (Auto) [place] % (Auto) Eos % (Auto) Baso % (Auto) Immature Gran # (Auto) Neut # (Auto) Lymph # (Auto) [place] # (Auto) Eos # (Auto) Baso # (Auto) Absolute Nucleated RBC (0-0) K/uL Nucleated RBC % (auto) % Neutrophils % (Manual) Band Neutrophils % Lymphocytes % (Manual) Prolymphocyte % Reactive Lymphs % (Man) Monocytes % (Manual) Eosinophils % (Manual) Basophils % (Manual) Metamyelocytes % (Man) Myelocytes % (Man) Promyelocytes % (Man) Blast Cells % (Manual) Plasma Cell % (Manual) Other Cells % Nucleated RBC % Neutrophils # (Manual) Band Neutrophils # Total Absolute Neuts Lymphocytes # (Manual) Prolymphocyte # Reactive Lymphs # Total Abs Lymphocytes Monocytes # (Manual) Eosinophils # (Manual) Basophils # (Manual) Metamyelocytes # (Man) Myelocytes # (Manual) Promyelocytes # (Man) Blast Cells # (Man) Plasma Cell # (Manual) Other Cells # Nucleated RBCs # (Man) Hypersegmented Neuts Hyposegmented Neuts Hypogranular Neuts Large Granular Lymphs # Lrg Granular Lymphs Hairy Cells Smudge Cells Blood Smear Review Toxic Granulation Toxic Vacuolation Dohle Bodies Moi Rods Platelet Estimate (Normal) Hypogranular Platelets Clumped Platelets Giant Platelets Platelet Satelliting RBC Morphology Polychromasia Hypochromasia Poikilocytosis Basophilic Stippling Anisocytosis Microcytosis Macrocytosis Spherocytes Pappenheimer Bodies Sickle Cells Target Cells Tear Drop Cells Ovalocytes Stomatocytes [place] Bodies Echinocytes Acanthocytes (Spur) Rouleaux RBC Agglutinates Schistocytes RBC Morph Comment Sezary Cell PT (9.0-12.0) Seconds INR (0.9-1.1) APTT (21.0-31.0) Seconds PTT Ratio Fibrinogen (184-400) mg/dl Fibrin Degrad Products (<10) mcg/ml D-Dimer (0-500) ug/L FEU Sample Site POC pH (7.35-7.45) POC pCO2 (35-46) mmHg POC pO2 (80-95) mmHg POC HCO3 (19-24) betty/L POC Total CO2 (24-31) mEq/l POC Base Excess (-9-1.8) betty/L POC ABG O2 Sat (90-95) % Daryl Test VBG pH (7.36-7.41) VBG pCO2 (38-50) mmHg VBG pO2 mmHg VBG HCO3 mmol/L VBG O2 Saturation % VBG Base Excess mEq/L Barometric Pressure mm/Hg O2 Delivery Device POC O2 Rate Minute Ventilation POC FiO2 % Tidal Volume PEEP POC Sodium (135-144) mEq/L Sodium (136-145) mmol/L POC Potassium (3.3-5.0) mEq/L Potassium (3.5-5.1) mmol/L Chloride (98-107) mmol/L Carbon Dioxide (21-32) mmol/L Anion Gap (3-11) BUN (7-18) mg/dl Creatinine (0.6-1.4) mg/dl Est Cr Clr Drug Dosing Est GFR ( Amer) Est GFR (Non-Af Amer) BUN/Creatinine Ratio (10-20) Glucose (70-99) mg/dl POC Glucose (other) 591 H* 568 H* (70-99) mg/dl Lactate (0.4-2.0) mmol/L Calcium (8.5-10.1) mg/dl Ionized Calcium (1.12-1.32) mmol/L Phosphorus (2.5-4.9) mg/dl Magnesium (1.8-2.4) mg/dl Total Bilirubin (0.2-1) mg/dl Direct Bilirubin (0-0.2) mg/dl AST (15-37) U/L ALT (12-78) U/L Alkaline Phosphatase (45-117) U/L Troponin I 2.080 H* (0-0.045) ng/ml NT-Pro-B Natriuret Pep (0-900) pg/ml Total Protein (6.4-8.2) gm/dl Albumin (3.4-5.0) gm/dl Globulin (2.5-4.0) gm/dl Albumin/Globulin Ratio (0.9-2) Lipase (73-393) U/L Beta-Hydroxybutyric Acd (0.2-2.81) mg/dl Urine Color Urine Appearance (Clear) Urine pH (4.5-7.5) Ur Specific [place] (1.000-1.030) Urine Protein (Negative) Urine Glucose (UA) (Negative) Urine Ketones (Negative) Urine Blood (Negative) Urine Nitrite (Negative) Urine Bilirubin (Negative) Urine Urobilinogen (Negative) Ur Leukocyte Esterase (Negative) Urine WBC (Auto) (0-5) /hpf Urine RBC (Auto) (0-4) /hpf U Hyaline Cast (Auto) (0-5) /lpf U Epithel Cells (Auto) (0-5) /lpf Urine Bacteria (Auto) (Negative) Calcium Oxalate Crystal (None Prsent) Amorphous Sediment (None Prsent) Urine Yeast Nasal Screen MRSA (PCR) (Negative) Blood Type Blood Type Recheck Antibody Screen Crossmatch 04/20/19 04/20/19 04/20/19 Range/Units 05:51 05:51 05:51 WBC (4.8-10.8) K/uL RBC (4.7-6.1) M/uL Hgb 8.0 L (14.0-18.0) g/dL POC Hgb (14.0-18.0) g/dl Hct 24.1 L (42-52) % POC Hct (42-52) % MCV (80-100) fL MCH (25-34) pg MCHC (32-36) g/dL RDW Std Deviation (36.4-46.3) fL RDW Coeff of Darron (11.5-14.5) % Plt Count (130-400) K/uL MPV (7.4-10.4) fL Immature Gran % (Auto) Neut % (Auto) Lymph % (Auto) [place] % (Auto) Eos % (Auto) Baso % (Auto) Immature Gran # (Auto) Neut # (Auto) Lymph # (Auto) [place] # (Auto) Eos # (Auto) Baso # (Auto) Absolute Nucleated RBC (0-0) K/uL Nucleated RBC % (auto) % Neutrophils % (Manual) Band Neutrophils % Lymphocytes % (Manual) Prolymphocyte % Reactive Lymphs % (Man) Monocytes % (Manual) Eosinophils % (Manual) Basophils % (Manual) Metamyelocytes % (Man) Myelocytes % (Man) Promyelocytes % (Man) Blast Cells % (Manual) Plasma Cell % (Manual) Other Cells % Nucleated RBC % Neutrophils # (Manual) Band Neutrophils # Total Absolute Neuts Lymphocytes # (Manual) Prolymphocyte # Reactive Lymphs # Total Abs Lymphocytes Monocytes # (Manual) Eosinophils # (Manual) Basophils # (Manual) Metamyelocytes # (Man) Myelocytes # (Manual) Promyelocytes # (Man) Blast Cells # (Man) Plasma Cell # (Manual) Other Cells # Nucleated RBCs # (Man) Hypersegmented Neuts Hyposegmented Neuts Hypogranular Neuts Large Granular Lymphs # Lrg Granular Lymphs Hairy Cells Smudge Cells Blood Smear Review Toxic Granulation Toxic Vacuolation Dohle Bodies Moi Rods Platelet Estimate (Normal) Hypogranular Platelets Clumped Platelets Giant Platelets Platelet Satelliting RBC Morphology Polychromasia Hypochromasia Poikilocytosis Basophilic Stippling Anisocytosis Microcytosis Macrocytosis Spherocytes Pappenheimer Bodies Sickle Cells Target Cells Tear Drop Cells Ovalocytes Stomatocytes [place] Bodies Echinocytes Acanthocytes (Spur) Rouleaux RBC Agglutinates Schistocytes RBC Morph Comment Sezary Cell PT (9.0-12.0) Seconds INR (0.9-1.1) APTT (21.0-31.0) Seconds PTT Ratio Fibrinogen 591 H (184-400) mg/dl Fibrin Degrad Products >40 H (<10) mcg/ml D-Dimer [id number] H* (0-500) ug/L FEU Sample Site POC pH (7.35-7.45) POC pCO2 (35-46) mmHg POC pO2 (80-95) mmHg POC HCO3 (19-24) betty/L POC Total CO2 (24-31) mEq/l POC Base Excess (-9-1.8) betty/L POC ABG O2 Sat (90-95) % Daryl Test VBG pH (7.36-7.41) VBG pCO2 (38-50) mmHg VBG pO2 mmHg VBG HCO3 mmol/L VBG O2 Saturation % VBG Base Excess mEq/L Barometric Pressure mm/Hg O2 Delivery Device POC O2 Rate Minute Ventilation POC FiO2 % Tidal Volume PEEP POC Sodium (135-144) mEq/L Sodium (136-145) mmol/L POC Potassium (3.3-5.0) mEq/L Potassium (3.5-5.1) mmol/L Chloride (98-107) mmol/L Carbon Dioxide (21-32) mmol/L Anion Gap (3-11) BUN (7-18) mg/dl Creatinine (0.6-1.4) mg/dl Est Cr Clr Drug Dosing Est GFR ( Amer) Est GFR (Non-Af Amer) BUN/Creatinine Ratio (10-20) Glucose (70-99) mg/dl POC Glucose (other) (70-99) mg/dl Lactate (0.4-2.0) mmol/L Calcium (8.5-10.1) mg/dl Ionized Calcium (1.12-1.32) mmol/L Phosphorus (2.5-4.9) mg/dl Magnesium (1.8-2.4) mg/dl Total Bilirubin (0.2-1) mg/dl Direct Bilirubin (0-0.2) mg/dl AST (15-37) U/L ALT (12-78) U/L Alkaline Phosphatase (45-117) U/L Troponin I (0-0.045) ng/ml NT-Pro-B Natriuret Pep (0-900) pg/ml Total Protein (6.4-8.2) gm/dl Albumin (3.4-5.0) gm/dl Globulin (2.5-4.0) gm/dl Albumin/Globulin Ratio (0.9-2) Lipase (73-393) U/L Beta-Hydroxybutyric Acd (0.2-2.81) mg/dl Urine Color Urine Appearance (Clear) Urine pH (4.5-7.5) Ur Specific [place] (1.000-1.030) Urine Protein (Negative) Urine Glucose (UA) (Negative) Urine Ketones (Negative) Urine Blood (Negative) Urine Nitrite (Negative) Urine Bilirubin (Negative) Urine Urobilinogen (Negative) Ur Leukocyte Esterase (Negative) Urine WBC (Auto) (0-5) /hpf Urine RBC (Auto) (0-4) /hpf U Hyaline Cast (Auto) (0-5) /lpf U Epithel Cells (Auto) (0-5) /lpf Urine Bacteria (Auto) (Negative) Calcium Oxalate Crystal (None Prsent) Amorphous Sediment (None Prsent) Urine Yeast Nasal Screen MRSA (PCR) (Negative) Blood Type Blood Type Recheck Antibody Screen Crossmatch 11/27/18 11/27/18 11/27/18 Range/Units 03:34 03:34 03:34 WBC (4.8-10.8) K/uL RBC (4.7-6.1) M/uL Hgb (14.0-18.0) g/dL POC Hgb (14.0-18.0) g/dl Hct (42-52) % POC Hct (42-52) % MCV (80-100) fL MCH (25-34) pg MCHC (32-36) g/dL RDW Std Deviation (36.4-46.3) fL RDW Coeff of Darron (11.5-14.5) % Plt Count (130-400) K/uL MPV (7.4-10.4) fL Immature Gran % (Auto) Neut % (Auto) Lymph % (Auto) [place] % (Auto) Eos % (Auto) Baso % (Auto) Immature Gran # (Auto) Neut # (Auto) Lymph # (Auto) [place] # (Auto) Eos # (Auto) Baso # (Auto) Absolute Nucleated RBC (0-0) K/uL Nucleated RBC % (auto) % Neutrophils % (Manual) Band Neutrophils % Lymphocytes % (Manual) Prolymphocyte % Reactive Lymphs % (Man) Monocytes % (Manual) Eosinophils % (Manual) Basophils % (Manual) Metamyelocytes % (Man) Myelocytes % (Man) Promyelocytes % (Man) Blast Cells % (Manual) Plasma Cell % (Manual) Other Cells % Nucleated RBC % Neutrophils # (Manual) Band Neutrophils # Total Absolute Neuts Lymphocytes # (Manual) Prolymphocyte # Reactive Lymphs # Total Abs Lymphocytes Monocytes # (Manual) Eosinophils # (Manual) Basophils # (Manual) Metamyelocytes # (Man) Myelocytes # (Manual) Promyelocytes # (Man) Blast Cells # (Man) Plasma Cell # (Manual) Other Cells # Nucleated RBCs # (Man) Hypersegmented Neuts Hyposegmented Neuts Hypogranular Neuts Large Granular Lymphs # Lrg Granular Lymphs Hairy Cells Smudge Cells Blood Smear Review Toxic Granulation Toxic Vacuolation Dohle Bodies Moi Rods Platelet Estimate (Normal) Hypogranular Platelets Clumped Platelets Giant Platelets Platelet Satelliting RBC Morphology Polychromasia Hypochromasia Poikilocytosis Basophilic Stippling Anisocytosis Microcytosis Macrocytosis Spherocytes Pappenheimer Bodies Sickle Cells Target Cells Tear Drop Cells Ovalocytes Stomatocytes [place] Bodies Echinocytes Acanthocytes (Spur) Rouleaux RBC Agglutinates Schistocytes RBC Morph Comment Sezary Cell PT (9.0-12.0) Seconds INR (0.9-1.1) APTT (21.0-31.0) Seconds PTT Ratio Fibrinogen (184-400) mg/dl Fibrin Degrad Products (<10) mcg/ml D-Dimer (0-500) ug/L FEU Sample Site POC pH (7.35-7.45) POC pCO2 (35-46) mmHg POC pO2 (80-95) mmHg POC HCO3 (19-24) betty/L POC Total CO2 (24-31) mEq/l POC Base Excess (-9-1.8) betty/L POC ABG O2 Sat (90-95) % Daryl Test VBG pH (7.36-7.41) VBG pCO2 (38-50) mmHg VBG pO2 mmHg VBG HCO3 mmol/L VBG O2 Saturation % VBG Base Excess mEq/L Barometric Pressure mm/Hg O2 Delivery Device POC O2 Rate Minute Ventilation POC FiO2 % Tidal Volume PEEP POC Sodium (135-144) mEq/L Sodium (136-145) mmol/L POC Potassium (3.3-5.0) mEq/L Potassium (3.5-5.1) mmol/L Chloride (98-107) mmol/L Carbon Dioxide (21-32) mmol/L Anion Gap (3-11) BUN (7-18) mg/dl Creatinine (0.6-1.4) mg/dl Est Cr Clr Drug Dosing Est GFR ( Amer) Est GFR (Non-Af Amer) BUN/Creatinine Ratio (10-20) Glucose (70-99) mg/dl POC Glucose (other) (70-99) mg/dl Lactate 13.0 H* (0.4-2.0) mmol/L Calcium (8.5-10.1) mg/dl Ionized Calcium 1.03 L (1.12-1.32) mmol/L Phosphorus (2.5-4.9) mg/dl Magnesium (1.8-2.4) mg/dl Total Bilirubin 2.4 H D (0.2-1) mg/dl Direct Bilirubin 2.2 H (0-0.2) mg/dl AST 318 H (15-37) U/L ALT 185 H (12-78) U/L Alkaline Phosphatase 325 H (45-117) U/L Troponin I (0-0.045) ng/ml NT-Pro-B Natriuret Pep (0-900) pg/ml Total Protein 4.5 L D (6.4-8.2) gm/dl Albumin 1.3 L (3.4-5.0) gm/dl Globulin (2.5-4.0) gm/dl Albumin/Globulin Ratio (0.9-2) Lipase (73-393) U/L Beta-Hydroxybutyric Acd (0.2-2.81) mg/dl Urine Color Urine Appearance (Clear) Urine pH (4.5-7.5) Ur Specific [place] (1.000-1.030) Urine Protein (Negative) Urine Glucose (UA) (Negative) Urine Ketones (Negative) Urine Blood (Negative) Urine Nitrite (Negative) Urine Bilirubin (Negative) Urine Urobilinogen (Negative) Ur Leukocyte Esterase (Negative) Urine WBC (Auto) (0-5) /hpf Urine RBC (Auto) (0-4) /hpf U Hyaline Cast (Auto) (0-5) /lpf U Epithel Cells (Auto) (0-5) /lpf Urine Bacteria (Auto) (Negative) Calcium Oxalate Crystal (None Prsent) Amorphous Sediment (None Prsent) Urine Yeast Nasal Screen MRSA (PCR) (Negative) Blood Type Blood Type Recheck Antibody Screen Crossmatch 11/27/18 11/27/18 11/27/18 Range/Units 03:34 03:34 03:34 WBC 2.64 L (4.8-10.8) K/uL RBC 2.29 L (4.7-6.1) M/uL Hgb 7.3 L (14.0-18.0) g/dL POC Hgb (14.0-18.0) g/dl Hct 22.1 L (42-52) % POC Hct (42-52) % MCV 96.5 (80-100) fL MCH 31.9 (25-34) pg MCHC 33.0 (32-36) g/dL RDW Std Deviation 55.5 H (36.4-46.3) fL RDW Coeff of Darron 15.7 H (11.5-14.5) % Plt Count 30 L (130-400) K/uL MPV 10.8 H (7.4-10.4) fL Immature Gran % (Auto) Cancelled Neut % (Auto) Cancelled Lymph % (Auto) Cancelled [place] % (Auto) Cancelled Eos % (Auto) Cancelled Baso % (Auto) Cancelled Immature Gran # (Auto) Cancelled Neut # (Auto) Cancelled Lymph # (Auto) Cancelled [place] # (Auto) Cancelled Eos # (Auto) Cancelled Baso # (Auto) Cancelled Absolute Nucleated RBC 0.12 H (0-0) K/uL Nucleated RBC % (auto) 4.6 % Neutrophils % (Manual) Cancelled Band Neutrophils % Cancelled Lymphocytes % (Manual) Cancelled Prolymphocyte % Cancelled Reactive Lymphs % (Man) Cancelled Monocytes % (Manual) Cancelled Eosinophils % (Manual) Cancelled Basophils % (Manual) Cancelled Metamyelocytes % (Man) Cancelled Myelocytes % (Man) Cancelled Promyelocytes % (Man) Cancelled Blast Cells % (Manual) Cancelled Plasma Cell % (Manual) Cancelled Other Cells % Cancelled Nucleated RBC % Cancelled Neutrophils # (Manual) Cancelled Band Neutrophils # Cancelled Total Absolute Neuts Cancelled Lymphocytes # (Manual) Cancelled Prolymphocyte # Cancelled Reactive Lymphs # Cancelled Total Abs Lymphocytes Cancelled Monocytes # (Manual) Cancelled Eosinophils # (Manual) Cancelled Basophils # (Manual) Cancelled Metamyelocytes # (Man) Cancelled Myelocytes # (Manual) Cancelled Promyelocytes # (Man) Cancelled Blast Cells # (Man) Cancelled Plasma Cell # (Manual) Cancelled Other Cells # Cancelled Nucleated RBCs # (Man) Cancelled Hypersegmented Neuts Cancelled Hyposegmented Neuts Cancelled Hypogranular Neuts Cancelled Large Granular Lymphs Cancelled # Lrg Granular Lymphs Cancelled Hairy Cells Cancelled Smudge Cells Cancelled Blood Smear Review Toxic Granulation Cancelled Toxic Vacuolation Cancelled Dohle Bodies Cancelled Moi Rods Cancelled Platelet Estimate (Normal) Hypogranular Platelets Cancelled Clumped Platelets Cancelled Giant Platelets Cancelled Platelet Satelliting Cancelled RBC Morphology Cancelled Polychromasia Cancelled Hypochromasia Cancelled Poikilocytosis Cancelled Basophilic Stippling Cancelled Anisocytosis Cancelled Microcytosis Cancelled Macrocytosis Cancelled Spherocytes Cancelled Pappenheimer Bodies Cancelled Sickle Cells Cancelled Target Cells Cancelled Tear Drop Cells Cancelled Ovalocytes Cancelled Stomatocytes Cancelled [place] Bodies Cancelled Echinocytes Cancelled Acanthocytes (Spur) Cancelled Rouleaux Cancelled RBC Agglutinates Cancelled Schistocytes Cancelled RBC Morph Comment Cancelled Sezary Cell Cancelled PT 18.7 H (9.0-12.0) Seconds INR 1.9 H (0.9-1.1) APTT 69.4 H* (21.0-31.0) Seconds PTT Ratio 2.6 Fibrinogen (184-400) mg/dl Fibrin Degrad Products (<10) mcg/ml D-Dimer (0-500) ug/L FEU Sample Site POC pH (7.35-7.45) POC pCO2 (35-46) mmHg POC pO2 (80-95) mmHg POC HCO3 (19-24) betty/L POC Total CO2 (24-31) mEq/l POC Base Excess (-9-1.8) betty/L POC ABG O2 Sat (90-95) % Daryl Test VBG pH (7.36-7.41) VBG pCO2 (38-50) mmHg VBG pO2 mmHg VBG HCO3 mmol/L VBG O2 Saturation % VBG Base Excess mEq/L Barometric Pressure mm/Hg O2 Delivery Device POC O2 Rate Minute Ventilation POC FiO2 % Tidal Volume PEEP POC Sodium (135-144) mEq/L Sodium 133 L D (136-145) mmol/L POC Potassium (3.3-5.0) mEq/L Potassium 4.0 (3.5-5.1) mmol/L Chloride 104 (98-107) mmol/L Carbon Dioxide 12 L (21-32) mmol/L Anion Gap 17.0 H (3-11) BUN 47 H (7-18) mg/dl Creatinine 2.09 H D (0.6-1.4) mg/dl Est Cr Clr Drug Dosing 32.9 Est GFR ( Amer) 36.1 Est GFR (Non-Af Amer) 31.1 BUN/Creatinine Ratio 22.6 H (10-20) Glucose 360 H* (70-99) mg/dl POC Glucose (other) (70-99) mg/dl Lactate (0.4-2.0) mmol/L Calcium 7.3 L (8.5-10.1) mg/dl Ionized Calcium (1.12-1.32) mmol/L Phosphorus 2.1 L (2.5-4.9) mg/dl Magnesium 1.8 (1.8-2.4) mg/dl Total Bilirubin (0.2-1) mg/dl Direct Bilirubin (0-0.2) mg/dl AST (15-37) U/L ALT (12-78) U/L Alkaline Phosphatase (45-117) U/L Troponin I (0-0.045) ng/ml NT-Pro-B Natriuret Pep (0-900) pg/ml Total Protein (6.4-8.2) gm/dl Albumin (3.4-5.0) gm/dl Globulin (2.5-4.0) gm/dl Albumin/Globulin Ratio (0.9-2) Lipase 151 (73-393) U/L Beta-Hydroxybutyric Acd 3.08 H (0.2-2.81) mg/dl Urine Color Urine Appearance (Clear) Urine pH (4.5-7.5) Ur Specific [place] (1.000-1.030) Urine Protein (Negative) Urine Glucose (UA) (Negative) Urine Ketones (Negative) Urine Blood (Negative) Urine Nitrite (Negative) Urine Bilirubin (Negative) Urine Urobilinogen (Negative) Ur Leukocyte Esterase (Negative) Urine WBC (Auto) (0-5) /hpf Urine RBC (Auto) (0-4) /hpf U Hyaline Cast (Auto) (0-5) /lpf U Epithel Cells (Auto) (0-5) /lpf Urine Bacteria (Auto) (Negative) Calcium Oxalate Crystal (None Prsent) Amorphous Sediment (None Prsent) Urine Yeast Nasal Screen MRSA (PCR) (Negative) Blood Type Blood Type Recheck Antibody Screen Crossmatch 11/27/18 11/27/18 11/26/18 Range/Units 02:15 01:10 23:49 WBC (4.8-10.8) K/uL RBC (4.7-6.1) M/uL Hgb (14.0-18.0) g/dL POC Hgb (14.0-18.0) g/dl Hct (42-52) % POC Hct (42-52) % MCV (80-100) fL MCH (25-34) pg MCHC (32-36) g/dL RDW Std Deviation (36.4-46.3) fL RDW Coeff of Darron (11.5-14.5) % Plt Count (130-400) K/uL MPV (7.4-10.4) fL Immature Gran % (Auto) Neut % (Auto) Lymph % (Auto) [place] % (Auto) Eos % (Auto) Baso % (Auto) Immature Gran # (Auto) Neut # (Auto) Lymph # (Auto) [place] # (Auto) Eos # (Auto) Baso # (Auto) Absolute Nucleated RBC (0-0) K/uL Nucleated RBC % (auto) % Neutrophils % (Manual) Band Neutrophils % Lymphocytes % (Manual) Prolymphocyte % Reactive Lymphs % (Man) Monocytes % (Manual) Eosinophils % (Manual) Basophils % (Manual) Metamyelocytes % (Man) Myelocytes % (Man) Promyelocytes % (Man) Blast Cells % (Manual) Plasma Cell % (Manual) Other Cells % Nucleated RBC % Neutrophils # (Manual) Band Neutrophils # Total Absolute Neuts Lymphocytes # (Manual) Prolymphocyte # Reactive Lymphs # Total Abs Lymphocytes Monocytes # (Manual) Eosinophils # (Manual) Basophils # (Manual) Metamyelocytes # (Man) Myelocytes # (Manual) Promyelocytes # (Man) Blast Cells # (Man) Plasma Cell # (Manual) Other Cells # Nucleated RBCs # (Man) Hypersegmented Neuts Hyposegmented Neuts Hypogranular Neuts Large Granular Lymphs # Lrg Granular Lymphs Hairy Cells Smudge Cells Blood Smear Review Toxic Granulation Toxic Vacuolation Dohle Bodies Moi Rods Platelet Estimate (Normal) Hypogranular Platelets Clumped Platelets Giant Platelets Platelet Satelliting RBC Morphology Polychromasia Hypochromasia Poikilocytosis Basophilic Stippling Anisocytosis Microcytosis Macrocytosis Spherocytes Pappenheimer Bodies Sickle Cells Target Cells Tear Drop Cells Ovalocytes Stomatocytes [place] Bodies Echinocytes Acanthocytes (Spur) Rouleaux RBC Agglutinates Schistocytes RBC Morph Comment Sezary Cell PT (9.0-12.0) Seconds INR (0.9-1.1) APTT (21.0-31.0) Seconds PTT Ratio Fibrinogen (184-400) mg/dl Fibrin Degrad Products (<10) mcg/ml D-Dimer (0-500) ug/L FEU Sample Site POC pH (7.35-7.45) POC pCO2 (35-46) mmHg POC pO2 (80-95) mmHg POC HCO3 (19-24) betty/L POC Total CO2 (24-31) mEq/l POC Base Excess (-9-1.8) betty/L POC ABG O2 Sat (90-95) % Daryl Test VBG pH (7.36-7.41) VBG pCO2 (38-50) mmHg VBG pO2 mmHg VBG HCO3 mmol/L VBG O2 Saturation % VBG Base Excess mEq/L Barometric Pressure mm/Hg O2 Delivery Device POC O2 Rate Minute Ventilation POC FiO2 % Tidal Volume PEEP POC Sodium (135-144) mEq/L Sodium (136-145) mmol/L POC Potassium (3.3-5.0) mEq/L Potassium (3.5-5.1) mmol/L Chloride (98-107) mmol/L Carbon Dioxide (21-32) mmol/L Anion Gap (3-11) BUN (7-18) mg/dl Creatinine (0.6-1.4) mg/dl Est Cr Clr Drug Dosing Est GFR ( Amer) Est GFR (Non-Af Amer) BUN/Creatinine Ratio (10-20) Glucose (70-99) mg/dl POC Glucose (other) (70-99) mg/dl Lactate 9.2 H* (0.4-2.0) mmol/L Calcium (8.5-10.1) mg/dl Ionized Calcium (1.12-1.32) mmol/L Phosphorus (2.5-4.9) mg/dl Magnesium (1.8-2.4) mg/dl Total Bilirubin (0.2-1) mg/dl Direct Bilirubin (0-0.2) mg/dl AST (15-37) U/L ALT (12-78) U/L Alkaline Phosphatase (45-117) U/L Troponin I (0-0.045) ng/ml NT-Pro-B Natriuret Pep (0-900) pg/ml Total Protein (6.4-8.2) gm/dl Albumin (3.4-5.0) gm/dl Globulin (2.5-4.0) gm/dl Albumin/Globulin Ratio (0.9-2) Lipase (73-393) U/L Beta-Hydroxybutyric Acd (0.2-2.81) mg/dl Urine Color Dark Yellow Urine Appearance Turbid H (Clear) Urine pH 5.0 (4.5-7.5) Ur Specific [place] 1.020 (1.000-1.030) Urine Protein 2+ H (Negative) Urine Glucose (UA) Trace H (Negative) Urine Ketones Trace H (Negative) Urine Blood 2+ H (Negative) Urine Nitrite Positive H (Negative) Urine Bilirubin 1+ H (Negative) Urine Urobilinogen Negative (Negative) Ur Leukocyte Esterase Trace H (Negative) Urine WBC (Auto) >30 H (0-5) /hpf Urine RBC (Auto) 0-4 (0-4) /hpf U Hyaline Cast (Auto) 1-5 (0-5) /lpf U Epithel Cells (Auto) >30 H (0-5) /lpf Urine Bacteria (Auto) Negative (Negative) Calcium Oxalate Crystal Present H (None Prsent) Amorphous Sediment Present H (None Prsent) Urine Yeast Not Reportable Nasal Screen MRSA (PCR) (Negative) Blood Type Blood Type Recheck A Positive Antibody Screen Crossmatch 11/26/18 11/26/18 11/26/18 Range/Units 23:48 23:48 23:48 WBC 0.82 L* (4.8-10.8) K/uL RBC 2.22 L (4.7-6.1) M/uL Hgb 7.0 L (14.0-18.0) g/dL POC Hgb (14.0-18.0) g/dl Hct 21.4 L (42-52) % POC Hct (42-52) % MCV 96.4 (80-100) fL MCH 31.5 (25-34) pg MCHC 32.7 (32-36) g/dL RDW Std Deviation 54.3 H (36.4-46.3) fL RDW Coeff of Darron 15.5 H (11.5-14.5) % Plt Count 32 L (130-400) K/uL MPV 11.2 H (7.4-10.4) fL Immature Gran % (Auto) 0.0 Neut % (Auto) 84.2 Lymph % (Auto) 7.3 [place] % (Auto) 7.3 Eos % (Auto) 1.2 Baso % (Auto) 0.0 Immature Gran # (Auto) 0.00 Neut # (Auto) 0.69 L* Lymph # (Auto) 0.06 L [place] # (Auto) 0.06 L Eos # (Auto) 0.01 Baso # (Auto) 0.00 Absolute Nucleated RBC 0.07 H (0-0) K/uL Nucleated RBC % (auto) 8.9 % Neutrophils % (Manual) Band Neutrophils % Lymphocytes % (Manual) Prolymphocyte % Reactive Lymphs % (Man) Monocytes % (Manual) Eosinophils % (Manual) Basophils % (Manual) Metamyelocytes % (Man) Myelocytes % (Man) Promyelocytes % (Man) Blast Cells % (Manual) Plasma Cell % (Manual) Other Cells % Nucleated RBC % Neutrophils # (Manual) Band Neutrophils # Total Absolute Neuts Lymphocytes # (Manual) Prolymphocyte # Reactive Lymphs # Total Abs Lymphocytes Monocytes # (Manual) Eosinophils # (Manual) Basophils # (Manual) Metamyelocytes # (Man) Myelocytes # (Manual) Promyelocytes # (Man) Blast Cells # (Man) Plasma Cell # (Manual) Other Cells # Nucleated RBCs # (Man) Hypersegmented Neuts Hyposegmented Neuts Hypogranular Neuts Large Granular Lymphs # Lrg Granular Lymphs Hairy Cells Smudge Cells Blood Smear Review Toxic Granulation 1+ Toxic Vacuolation 3+ Dohle Bodies Moi Rods Platelet Estimate (Normal) Hypogranular Platelets Clumped Platelets Giant Platelets Platelet Satelliting RBC Morphology Polychromasia Hypochromasia Poikilocytosis Basophilic Stippling Anisocytosis Microcytosis Macrocytosis Spherocytes Pappenheimer Bodies Sickle Cells Target Cells Tear Drop Cells Ovalocytes Stomatocytes [place] Bodies Echinocytes Acanthocytes (Spur) Rouleaux RBC Agglutinates Schistocytes RBC Morph Comment Sezary Cell PT (9.0-12.0) Seconds INR (0.9-1.1) APTT (21.0-31.0) Seconds PTT Ratio Fibrinogen (184-400) mg/dl Fibrin Degrad Products (<10) mcg/ml D-Dimer (0-500) ug/L FEU Sample Site POC pH (7.35-7.45) POC pCO2 (35-46) mmHg POC pO2 (80-95) mmHg POC HCO3 (19-24) betty/L POC Total CO2 (24-31) mEq/l POC Base Excess (-9-1.8) betty/L POC ABG O2 Sat (90-95) % Daryl Test VBG pH (7.36-7.41) VBG pCO2 (38-50) mmHg VBG pO2 mmHg VBG HCO3 mmol/L VBG O2 Saturation % VBG Base Excess mEq/L Barometric Pressure mm/Hg O2 Delivery Device POC O2 Rate Minute Ventilation POC FiO2 % Tidal Volume PEEP POC Sodium (135-144) mEq/L Sodium 141 (136-145) mmol/L POC Potassium (3.3-5.0) mEq/L Potassium 4.1 (3.5-5.1) mmol/L Chloride 112 H (98-107) mmol/L Carbon Dioxide 15 L (21-32) mmol/L Anion Gap 15.0 H (3-11) BUN 46 H (7-18) mg/dl Creatinine 1.65 H (0.6-1.4) mg/dl Est Cr Clr Drug Dosing 41.7 Est GFR ( Amer) 48.0 Est GFR (Non-Af Amer) 41.4 BUN/Creatinine Ratio 27.8 H (10-20) Glucose 114 H (70-99) mg/dl POC Glucose (other) (70-99) mg/dl Lactate (0.4-2.0) mmol/L Calcium 7.1 L (8.5-10.1) mg/dl Ionized Calcium 1.00 L (1.12-1.32) mmol/L Phosphorus 1.6 L (2.5-4.9) mg/dl Magnesium 1.6 L (1.8-2.4) mg/dl Total Bilirubin (0.2-1) mg/dl Direct Bilirubin (0-0.2) mg/dl AST (15-37) U/L ALT (12-78) U/L Alkaline Phosphatase (45-117) U/L Troponin I (0-0.045) ng/ml NT-Pro-B Natriuret Pep (0-900) pg/ml Total Protein (6.4-8.2) gm/dl Albumin (3.4-5.0) gm/dl Globulin (2.5-4.0) gm/dl Albumin/Globulin Ratio (0.9-2) Lipase (73-393) U/L Beta-Hydroxybutyric Acd (0.2-2.81) mg/dl Urine Color Urine Appearance (Clear) Urine pH (4.5-7.5) Ur Specific [place] (1.000-1.030) Urine Protein (Negative) Urine Glucose (UA) (Negative) Urine Ketones (Negative) Urine Blood (Negative) Urine Nitrite (Negative) Urine Bilirubin (Negative) Urine Urobilinogen (Negative) Ur Leukocyte Esterase (Negative) Urine WBC (Auto) (0-5) /hpf Urine RBC (Auto) (0-4) /hpf U Hyaline Cast (Auto) (0-5) /lpf U Epithel Cells (Auto) (0-5) /lpf Urine Bacteria (Auto) (Negative) Calcium Oxalate Crystal (None Prsent) Amorphous Sediment (None Prsent) Urine Yeast Nasal Screen MRSA (PCR) (Negative) Blood Type Blood Type Recheck Antibody Screen Crossmatch 11/26/18 11/26/18 11/26/18 Range/Units 23:11 22:05 20:35 WBC (4.8-10.8) K/uL RBC (4.7-6.1) M/uL Hgb (14.0-18.0) g/dL POC Hgb (14.0-18.0) g/dl Hct (42-52) % POC Hct (42-52) % MCV (80-100) fL MCH (25-34) pg MCHC (32-36) g/dL RDW Std Deviation (36.4-46.3) fL RDW Coeff of Darron (11.5-14.5) % Plt Count (130-400) K/uL MPV (7.4-10.4) fL Immature Gran % (Auto) Neut % (Auto) Lymph % (Auto) [place] % (Auto) Eos % (Auto) Baso % (Auto) Immature Gran # (Auto) Neut # (Auto) Lymph # (Auto) [place] # (Auto) Eos # (Auto) Baso # (Auto) Absolute Nucleated RBC (0-0) K/uL Nucleated RBC % (auto) % Neutrophils % (Manual) Band Neutrophils % Lymphocytes % (Manual) Prolymphocyte % Reactive Lymphs % (Man) Monocytes % (Manual) Eosinophils % (Manual) Basophils % (Manual) Metamyelocytes % (Man) Myelocytes % (Man) Promyelocytes % (Man) Blast Cells % (Manual) Plasma Cell % (Manual) Other Cells % Nucleated RBC % Neutrophils # (Manual) Band Neutrophils # Total Absolute Neuts Lymphocytes # (Manual) Prolymphocyte # Reactive Lymphs # Total Abs Lymphocytes Monocytes # (Manual) Eosinophils # (Manual) Basophils # (Manual) Metamyelocytes # (Man) Myelocytes # (Manual) Promyelocytes # (Man) Blast Cells # (Man) Plasma Cell # (Manual) Other Cells # Nucleated RBCs # (Man) Hypersegmented Neuts Hyposegmented Neuts Hypogranular Neuts Large Granular Lymphs # Lrg Granular Lymphs Hairy Cells Smudge Cells Blood Smear Review Toxic Granulation Toxic Vacuolation Dohle Bodies Moi Rods Platelet Estimate (Normal) Hypogranular Platelets Clumped Platelets Giant Platelets Platelet Satelliting RBC Morphology Polychromasia Hypochromasia Poikilocytosis Basophilic Stippling Anisocytosis Microcytosis Macrocytosis Spherocytes Pappenheimer Bodies Sickle Cells Target Cells Tear Drop Cells Ovalocytes Stomatocytes [place] Bodies Echinocytes Acanthocytes (Spur) Rouleaux RBC Agglutinates Schistocytes RBC Morph Comment Sezary Cell PT (9.0-12.0) Seconds INR (0.9-1.1) APTT (21.0-31.0) Seconds PTT Ratio Fibrinogen (184-400) mg/dl Fibrin Degrad Products (<10) mcg/ml D-Dimer (0-500) ug/L FEU Sample Site Art Line POC pH 7.30 L (7.35-7.45) POC pCO2 22 L (35-46) mmHg POC pO2 133 H (80-95) mmHg POC HCO3 11 L (19-24) betty/L POC Total CO2 12 L (24-31) mEq/l POC Base Excess -15.0 L (-9-1.8) betty/L POC ABG O2 Sat 99.0 H (90-95) % Daryl Test Pass VBG pH (7.36-7.41) VBG pCO2 (38-50) mmHg VBG pO2 mmHg VBG HCO3 mmol/L VBG O2 Saturation % VBG Base Excess mEq/L Barometric Pressure mm/Hg O2 Delivery Device Ventilator POC O2 Rate 14 Minute Ventilation 16.4 POC FiO2 40 % Tidal Volume 500 PEEP 5 POC Sodium (135-144) mEq/L Sodium (136-145) mmol/L POC Potassium (3.3-5.0) mEq/L Potassium (3.5-5.1) mmol/L Chloride (98-107) mmol/L Carbon Dioxide (21-32) mmol/L Anion Gap (3-11) BUN (7-18) mg/dl Creatinine (0.6-1.4) mg/dl Est Cr Clr Drug Dosing Est GFR ( Amer) Est GFR (Non-Af Amer) BUN/Creatinine Ratio (10-20) Glucose (70-99) mg/dl POC Glucose (other) (70-99) mg/dl Lactate (0.4-2.0) mmol/L Calcium (8.5-10.1) mg/dl Ionized Calcium (1.12-1.32) mmol/L Phosphorus (2.5-4.9) mg/dl Magnesium (1.8-2.4) mg/dl Total Bilirubin (0.2-1) mg/dl Direct Bilirubin (0-0.2) mg/dl AST (15-37) U/L ALT (12-78) U/L Alkaline Phosphatase (45-117) U/L Troponin I (0-0.045) ng/ml NT-Pro-B Natriuret Pep (0-900) pg/ml Total Protein (6.4-8.2) gm/dl Albumin (3.4-5.0) gm/dl Globulin (2.5-4.0) gm/dl Albumin/Globulin Ratio (0.9-2) Lipase (73-393) U/L Beta-Hydroxybutyric Acd (0.2-2.81) mg/dl Urine Color Urine Appearance (Clear) Urine pH (4.5-7.5) Ur Specific [place] (1.000-1.030) Urine Protein (Negative) Urine Glucose (UA) (Negative) Urine Ketones (Negative) Urine Blood (Negative) Urine Nitrite (Negative) Urine Bilirubin (Negative) Urine Urobilinogen (Negative) Ur Leukocyte Esterase (Negative) Urine WBC (Auto) (0-5) /hpf Urine RBC (Auto) (0-4) /hpf U Hyaline Cast (Auto) (0-5) /lpf U Epithel Cells (Auto) (0-5) /lpf Urine Bacteria (Auto) (Negative) Calcium Oxalate Crystal (None Prsent) Amorphous Sediment (None Prsent) Urine Yeast Nasal Screen MRSA (PCR) Negative (Negative) Blood Type A Positive Blood Type Recheck Antibody Screen NEGATIVE Crossmatch See Detail 11/26/18 11/26/18 11/26/18 Range/Units 18:43 18:43 18:43 WBC (4.8-10.8) K/uL RBC (4.7-6.1) M/uL Hgb (14.0-18.0) g/dL POC Hgb (14.0-18.0) g/dl Hct (42-52) % POC Hct (42-52) % MCV (80-100) fL MCH (25-34) pg MCHC (32-36) g/dL RDW Std Deviation (36.4-46.3) fL RDW Coeff of Darron (11.5-14.5) % Plt Count (130-400) K/uL MPV (7.4-10.4) fL Immature Gran % (Auto) Neut % (Auto) Lymph % (Auto) [place] % (Auto) Eos % (Auto) Baso % (Auto) Immature Gran # (Auto) Neut # (Auto) Lymph # (Auto) [place] # (Auto) Eos # (Auto) Baso # (Auto) Absolute Nucleated RBC (0-0) K/uL Nucleated RBC % (auto) % Neutrophils % (Manual) Band Neutrophils % Lymphocytes % (Manual) Prolymphocyte % Reactive Lymphs % (Man) Monocytes % (Manual) Eosinophils % (Manual) Basophils % (Manual) Metamyelocytes % (Man) Myelocytes % (Man) Promyelocytes % (Man) Blast Cells % (Manual) Plasma Cell % (Manual) Other Cells % Nucleated RBC % Neutrophils # (Manual) Band Neutrophils # Total Absolute Neuts Lymphocytes # (Manual) Prolymphocyte # Reactive Lymphs # Total Abs Lymphocytes Monocytes # (Manual) Eosinophils # (Manual) Basophils # (Manual) Metamyelocytes # (Man) Myelocytes # (Manual) Promyelocytes # (Man) Blast Cells # (Man) Plasma Cell # (Manual) Other Cells # Nucleated RBCs # (Man) Hypersegmented Neuts Hyposegmented Neuts Hypogranular Neuts Large Granular Lymphs # Lrg Granular Lymphs Hairy Cells Smudge Cells Blood Smear Review Toxic Granulation Toxic Vacuolation Dohle Bodies Moi Rods Platelet Estimate (Normal) Hypogranular Platelets Clumped Platelets Giant Platelets Platelet Satelliting RBC Morphology Polychromasia Hypochromasia Poikilocytosis Basophilic Stippling Anisocytosis Microcytosis Macrocytosis Spherocytes Pappenheimer Bodies Sickle Cells Target Cells Tear Drop Cells Ovalocytes Stomatocytes [place] Bodies Echinocytes Acanthocytes (Spur) Rouleaux RBC Agglutinates Schistocytes RBC Morph Comment Sezary Cell PT (9.0-12.0) Seconds INR (0.9-1.1) APTT (21.0-31.0) Seconds PTT Ratio Fibrinogen (184-400) mg/dl Fibrin Degrad Products (<10) mcg/ml D-Dimer (0-500) ug/L FEU Sample Site POC pH (7.35-7.45) POC pCO2 (35-46) mmHg POC pO2 (80-95) mmHg POC HCO3 (19-24) betty/L POC Total CO2 (24-31) mEq/l POC Base Excess (-9-1.8) betty/L POC ABG O2 Sat (90-95) % Daryl Test VBG pH 7.26 L (7.36-7.41) VBG pCO2 35 L (38-50) mmHg VBG pO2 24 mmHg VBG HCO3 15 mmol/L VBG O2 Saturation < 60.0 % VBG Base Excess -11.2 mEq/L Barometric Pressure 719.7 mm/Hg O2 Delivery Device POC O2 Rate Minute Ventilation POC FiO2 % [place] Volume PEEP POC Sodium (135-144) mEq/L Sodium 139 (136-145) mmol/L POC Potassium (3.3-5.0) mEq/L Potassium 3.9 (3.5-5.1) mmol/L Chloride 109 H (98-107) mmol/L Carbon Dioxide 15 L (21-32) mmol/L Anion Gap 15.0 H (3-11) BUN 41 H (7-18) mg/dl Creatinine 1.39 (0.6-1.4) mg/dl Est Cr Clr Drug Dosing Not Reportable Est GFR ( Amer) 59.1 Est GFR (Non-Af Amer) 51.0 BUN/Creatinine Ratio 29.4 H (10-20) Glucose 141 H (70-99) mg/dl POC Glucose (other) (70-99) mg/dl Lactate 9.0 H* (0.4-2.0) mmol/L Calcium 8.1 L (8.5-10.1) mg/dl Ionized Calcium (1.12-1.32) mmol/L Phosphorus (2.5-4.9) mg/dl Magnesium (1.8-2.4) mg/dl Total Bilirubin 1.1 H (0.2-1) mg/dl Direct Bilirubin (0-0.2) mg/dl AST 269 H (15-37) U/L ALT 162 H (12-78) U/L Alkaline Phosphatase 332 H (45-117) U/L Troponin I 0.146 H* (0-0.045) ng/ml NT-Pro-B Natriuret Pep 1784 H (0-900) pg/ml Total Protein 5.5 L (6.4-8.2) gm/dl Albumin 1.7 L (3.4-5.0) gm/dl Globulin 3.8 (2.5-4.0) gm/dl Albumin/Globulin Ratio 0.5 L (0.9-2) Lipase 123 (73-393) U/L Beta-Hydroxybutyric Acd (0.2-2.81) mg/dl Urine Color Urine Appearance (Clear) Urine pH (4.5-7.5) Ur Specific [place] (1.000-1.030) Urine Protein (Negative) Urine Glucose (UA) (Negative) Urine Ketones (Negative) Urine Blood (Negative) Urine Nitrite (Negative) Urine Bilirubin (Negative) Urine Urobilinogen (Negative) Ur Leukocyte Esterase (Negative) Urine WBC (Auto) (0-5) /hpf Urine RBC (Auto) (0-4) /hpf U Hyaline Cast (Auto) (0-5) /lpf U Epithel Cells (Auto) (0-5) /lpf Urine Bacteria (Auto) (Negative) Calcium Oxalate Crystal (None Prsent) Amorphous Sediment (None Prsent) Urine Yeast Nasal Screen MRSA (PCR) (Negative) Blood Type Blood Type Recheck Antibody Screen Crossmatch 11/26/18 11/26/18 11/26/18 Range/Units 18:43 18:43 18:30 WBC 0.29 L* (4.8-10.8) K/uL RBC 2.77 L (4.7-6.1) M/uL Hgb 8.9 L (14.0-18.0) g/dL POC Hgb 7.8 L (14.0-18.0) g/dl Hct 27.2 L (42-52) % POC Hct 23 L (42-52) % MCV 98.2 (80-100) fL MCH 32.1 (25-34) pg MCHC 32.7 (32-36) g/dL RDW Std Deviation 55.8 H (36.4-46.3) fL RDW Coeff of Darron 15.4 H (11.5-14.5) % Plt Count 55 L (130-400) K/uL MPV 11.7 H (7.4-10.4) fL Immature Gran % (Auto) Cancelled Neut % (Auto) Cancelled Lymph % (Auto) Cancelled [place] % (Auto) Cancelled Eos % (Auto) Cancelled Baso % (Auto) Cancelled Immature Gran # (Auto) Cancelled Neut # (Auto) Cancelled Lymph # (Auto) Cancelled [place] # (Auto) Cancelled Eos # (Auto) Cancelled Baso # (Auto) Cancelled Absolute Nucleated RBC 0.05 H (0-0) K/uL Nucleated RBC % (auto) 15.9 % Neutrophils % (Manual) Cancelled Band Neutrophils % Cancelled Lymphocytes % (Manual) Cancelled Prolymphocyte % Cancelled Reactive Lymphs % (Man) Cancelled Monocytes % (Manual) Cancelled Eosinophils % (Manual) Cancelled Basophils % (Manual) Cancelled Metamyelocytes % (Man) Cancelled Myelocytes % (Man) Cancelled Promyelocytes % (Man) Cancelled Blast Cells % (Manual) Cancelled Plasma Cell % (Manual) Cancelled Other Cells % Cancelled Nucleated RBC % Cancelled Neutrophils # (Manual) Cancelled Band Neutrophils # Cancelled Total Absolute Neuts Cancelled Lymphocytes # (Manual) Cancelled Prolymphocyte # Cancelled Reactive Lymphs # Cancelled Total Abs Lymphocytes Cancelled Monocytes # (Manual) Cancelled Eosinophils # (Manual) Cancelled Basophils # (Manual) Cancelled Metamyelocytes # (Man) Cancelled Myelocytes # (Manual) Cancelled Promyelocytes # (Man) Cancelled Blast Cells # (Man) Cancelled Plasma Cell # (Manual) Cancelled Other Cells # Cancelled Nucleated RBCs # (Man) Cancelled Hypersegmented Neuts Cancelled Hyposegmented Neuts Cancelled Hypogranular Neuts Cancelled Large Granular Lymphs Cancelled # Lrg Granular Lymphs Cancelled Hairy Cells Cancelled Smudge Cells Cancelled Blood Smear Review Toxic Granulation Cancelled Toxic Vacuolation Cancelled Dohle Bodies Cancelled Moi Rods Cancelled Platelet Estimate Decreased (Normal) Hypogranular Platelets Cancelled Clumped Platelets Cancelled Giant Platelets Cancelled Platelet Satelliting Cancelled RBC Morphology Cancelled Polychromasia Cancelled Hypochromasia Cancelled Poikilocytosis Cancelled Basophilic Stippling Cancelled Anisocytosis Cancelled Microcytosis Cancelled Macrocytosis Cancelled Spherocytes Cancelled Pappenheimer Bodies Cancelled Sickle Cells Cancelled Target Cells Cancelled Tear Drop Cells Cancelled Ovalocytes Cancelled Stomatocytes Cancelled [place] Bodies Cancelled Echinocytes Cancelled Acanthocytes (Spur) Cancelled Rouleaux Cancelled RBC Agglutinates Cancelled Schistocytes Cancelled RBC Morph Comment Cancelled Sezary Cell Cancelled PT 17.4 H (9.0-12.0) Seconds INR 1.8 H (0.9-1.1) APTT 25.9 (21.0-31.0) Seconds PTT Ratio 1.0 Fibrinogen (184-400) mg/dl Fibrin Degrad Products (<10) mcg/ml D-Dimer (0-500) ug/L FEU Sample Site POC pH 7.42 (7.35-7.45) POC pCO2 18 L (35-46) mmHg POC pO2 191 H (80-95) mmHg POC HCO3 12 L (19-24) betty/L POC Total CO2 12 L (24-31) mEq/l POC Base Excess -13.0 L (-9-1.8) betty/L POC ABG O2 Sat (90-95) % Daryl Test VBG pH (7.36-7.41) VBG pCO2 (38-50) mmHg VBG pO2 mmHg VBG HCO3 mmol/L VBG O2 Saturation % VBG Base Excess mEq/L Barometric Pressure mm/Hg O2 Delivery Device POC O2 Rate Minute Ventilation POC FiO2 % Tidal Volume PEEP POC Sodium 138 (135-144) mEq/L Sodium (136-145) mmol/L POC Potassium 3.9 (3.3-5.0) mEq/L Potassium (3.5-5.1) mmol/L Chloride (98-107) mmol/L Carbon Dioxide (21-32) mmol/L Anion Gap (3-11) BUN (7-18) mg/dl Creatinine (0.6-1.4) mg/dl Est Cr Clr Drug Dosing Est GFR ( Amer) Est GFR (Non-Af Amer) BUN/Creatinine Ratio (10-20) Glucose (70-99) mg/dl POC Glucose (other) (70-99) mg/dl Lactate (0.4-2.0) mmol/L Calcium (8.5-10.1) mg/dl Ionized Calcium (1.12-1.32) mmol/L Phosphorus (2.5-4.9) mg/dl Magnesium (1.8-2.4) mg/dl Total Bilirubin (0.2-1) mg/dl Direct Bilirubin (0-0.2) mg/dl AST (15-37) U/L ALT (12-78) U/L Alkaline Phosphatase (45-117) U/L Troponin I (0-0.045) ng/ml NT-Pro-B Natriuret Pep (0-900) pg/ml Total Protein (6.4-8.2) gm/dl Albumin (3.4-5.0) gm/dl Globulin (2.5-4.0) gm/dl Albumin/Globulin Ratio (0.9-2) Lipase (73-393) U/L Beta-Hydroxybutyric Acd (0.2-2.81) mg/dl Urine Color Urine Appearance (Clear) Urine pH (4.5-7.5) Ur Specific [place] (1.000-1.030) Urine Protein (Negative) Urine Glucose (UA) (Negative) Urine Ketones (Negative) Urine Blood (Negative) Urine Nitrite (Negative) Urine Bilirubin (Negative) Urine Urobilinogen (Negative) Ur Leukocyte Esterase (Negative) Urine WBC (Auto) (0-5) /hpf Urine RBC (Auto) (0-4) /hpf U Hyaline Cast (Auto) (0-5) /lpf U Epithel Cells (Auto) (0-5) /lpf Urine Bacteria (Auto) (Negative) Calcium Oxalate Crystal (None Prsent) Amorphous Sediment (None Prsent) Urine Yeast Nasal Screen MRSA (PCR) (Negative) Blood Type Blood Type Recheck Antibody Screen Crossmatch Resident Activity Tracking Resident Involvement: Resident Care Provided Care Provided: Adult Hospital Medicine (ICU)
[2018-11-27 06:50] LABS: Toxic Granulation 1+; Toxic Vacuolation 3+
[2018-11-27 06:56] LABS: Fibrinogen 591 mg/dl (184-400)
[2018-11-27] MEDS ORDERED: PHARMACY GLYCEMIC MGMT CONSULT PRN (06:57)
[2018-11-27 07:02] LABS: D Dimer 11800 ug/L FEU (0-500)
--- NOTE | 2018-11-27 07:28 | XRay Report ---
XR chest 1V portable CLINICAL HISTORY: Respiratory failure COMPARISON STUDY: 08/28/2018 FINDINGS: Bilateral central venous catheters remain unchanged in position. There is a nasogastric tub e within stomach. There is an endotracheal tube 5.4 cm above the suzy. There is slight interstitial prominence but no evidence of overt edema. There are no pleural effusions. There is no focal pulmona ry consolidation.[ IMPRESSION: 1. Endotracheal tube 5.4 cm above the suzy 2. Slight interstitial prominence but no evidence of overt edema or focal pulmonary consolidation Electronically signed by: Jose Montalvo M.D. 11/27/2018 7:27 AM
[2018-11-27] MEDS ORDERED: PHYTONADIONE 2.5 MG in SODIUM CHLORIDE 0.9% 50 ML IV ONE (08:30)
[2018-11-27] MEDS: SODIUM BICARBONATE 8.4% 150 MEQ in DEXTROSE 5% 1,000 ML IV SCH (08:53)
[2018-11-27] MEDS ORDERED: INSULIN ASPART 100 UNITS/ML 3 ML PEN SC SCH (09:00)
[2018-11-27 09:20] LABS: Albumin Level 1.3 gm/dl (3.4-5.0); Bilirubin Direct 2.2 mg/dl (0-0.2); Bilirubin,Total 2.4 mg/dl (0.2-1); Total Protein 4.5 gm/dl (6.4-8.2)
[2018-11-27] MEDS: FAMOTIDINE 20 MG in SYRINGE 3 ML IV SCH (09:29)
[2018-11-27 11:09] LABS: Partial Thromboplastin Ratio > 5.1
[2018-11-27 11:15] LABS: Partial Thromboplastin Time > 139.0 Seconds (21.0-31.0)
[2018-11-27] MEDS ORDERED: ALBUMIN 25% IV SCH (11:15)
[2018-11-27] MEDS ORDERED: PHYTONADIONE 5 MG in SODIUM CHLORIDE 0.9% 50 ML IV ONE (11:15)
[2018-11-27] MEDS ORDERED: DEXTROSE 5% IV SCH (11:15)
[2018-11-27] MEDS ORDERED: FILGRASTIM IV SCH (11:15)
[2018-11-27] MEDS ORDERED: VANCOMYCIN HCL 1,250 MG in SODIUM CHLORIDE 0.9% 250 ML IV SCH (12:00)
[2018-11-27] MEDS ORDERED: MoRPHine SULF/NSS 250 MG/250 ML BTL IV SCH (13:15)
[2018-11-27] MEDS ORDERED: PROPOFOL 1,000 MG/100 ML VIAL IV SCH (13:47)
[2018-11-27] MEDS ORDERED: PROPOFOL IV EMULSION 10 MG/ML 100 ML VIAL IV ONE (13:52)
--- NOTE | 2018-11-27 15:08 | Hospitalist Progress Note ---
Date of Service November 27, 2018 Assessment & Plan (1) Admitted to intensive care unit: Neutropenic fever. In septic shock. Bacteremia due to Gram(+) and Gram(-) bacteria. - Plan for terminal extubation in the ICU. - Continue abx (2) Cardiac arrest: As above. Complete echocardiogram ordered (3) Septic shock: Antibiotics and pressors as above. (4) Neutropenic fever: Pancreatic cancer post chemotherapy, neutropenic precautions as noted. Subjective More alert and awake today, but not answering questions due to intubation and sedation. Review of Systems Review of Systems: Unobtainable due to endotracheal tube Physical Exam Constitutional: WD/WN, vitals as above + acute distress, + frail appearing and + in distress Eyes: EOM intact bilaterally; no conjunctival abnormality ENMT: external ear and nose normal, oropharynx normal Neck: trachea midline, no thyromegaly normal visual inspection Respiratory: + respiratory distress, + uses accessory muscles and + tachypneic Auscultation: + diminished lung sounds, + rales and + rhonchi Intubated Cardiovascular: Rate/Rhythm: regular rhythm and + tachycardic Gastrointestinal (Abdomen): Inspection/Auscultation: abdomen normal to inspection; abdomen not distended Musculoskeletal: no cyanosis or clubbing, extremities motor strength 5/5 Skin: no rashes, warm and dry Neurologic: moves all extremities Psychiatric: Orientation: + not alert and + not oriented x 3 Results & Data Vital Signs (Past 12 Hours) Vital Signs Temp Pulse Resp BP Pulse Ox 11/27/18 11:27 125 H 36 H 100 11/27/18 07:12 128 H 37 H 100 11/27/18 07:00 129 H 110/55 L 100 11/27/18 06:50 126 H 100 11/27/18 06:45 122 H 106/57 L 100 11/27/18 06:40 129 H 100 11/27/18 06:30 126 H 91/49 L 100 11/27/18 06:20 127 H 100 11/27/18 06:15 131 H 110/56 L 100 11/27/18 06:10 131 H 100 11/27/18 06:00 131 H 107/59 L 100 11/27/18 05:50 132 H 100 11/27/18 05:45 133 H 109/56 L 100 11/27/18 05:40 131 H 100 11/27/18 05:30 128 H 111/48 L 100 11/27/18 05:20 130 H 100 11/27/18 05:15 132 H 105/53 L 100 11/27/18 05:10 133 H 100 11/27/18 05:00 131 H 113/60 100 11/27/18 04:54 124 H 35 H 100 11/27/18 04:50 126 H 100 11/27/18 04:45 124 H 105/55 L 100 11/27/18 04:40 125 H 100 11/27/18 04:30 134 H 100 11/27/18 04:20 131 H 100 11/27/18 04:15 37.2 C 132 H 24 113/60 100 11/27/18 04:10 132 H 100 11/27/18 04:00 37.9 C H 133 H 30 H 116/55 L 100 11/27/18 03:50 128 H 100 11/27/18 03:45 37.9 C H 128 H 28 H 105/54 L 100 11/27/18 03:40 134 H 100 11/27/18 03:30 38 C H 134 H 24 101/57 L 100 11/27/18 03:20 39.2 C H 136 H 105/55 L 100 11/27/18 03:18 137 H 112/51 L 100 11/27/18 03:16 136 H 108/56 L 100 11/27/18 03:14 136 H 105/55 L 100 11/27/18 03:12 39.2 C H 135 H 20 97/62 L 100 11/27/18 03:10 136 H 102/50 L 100 11/27/18 03:08 136 H 101/59 L 100 11/27/18 03:06 134 H 96/55 L 100
[2018-11-27 15:41] VITALS: BP 69/42; PULSE 126; O2SAT 99
--- NOTE | 2018-11-27 18:02 | Death Summary ---
Date of Service November 27, 2018 Patient had no spontaneous respirations, no heart sounds, no palpable pulse, pulseless agonal electrical activity on bedside monitor. Patient at 1758. 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 Significant conditions contributing to : Agranulocytosis secondary to chemotherapy, ventricular fibrillation with cardiac arrest, [place] jl, acute kidney injury/acute renal failure. Pronouncement Note Date and Time of Date of : 11/27/18 Time of : 17:58 Contributing Factors (1) Admitted to intensive care unit: (2) Cardiac arrest: (3) Septic shock: (4) Neutropenic fever: Summary Additional details: Patient had no spontaneous respirations, no heart sounds, no palpable pulse, pulseless agonal electrical activity on bedside monitor. Patient at 1758. 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 Significant conditions contributing to : Agranulocytosis secondary to chemotherapy, ventricular fibrillation with cardiac arrest, [place] jl, acute kidney injury/acute renal failure. Additional Data Confirmation of : no pulse, no respirations, no heart sounds and pupils fixed and dilated Family: at bedside Additional persons at bedside: financial aid advisor Attending/PCP notified?: Yes (Carlos Manuel Dougherty MD) Attending physician: Carlos Manuel Dougherty MD
[2018-11-27] MEDS ORDERED: CASPOFUNGIN 50 MG in SODIUM CHLORIDE 0.9% 250 ML IV SCH (22:00)
--- NOTE | 2018-11-27 22:42 | Discharge Summary ---
Date of Service November 27, 2018 Admission HPI Per Admitting Provider The patient is a 68-year-old male who called EMS as he was developing shortness of breath. EMS reports that when the patient stood up he had a syncopal episode and collapsed, and went into cardiac arrest. He had CPR x2, and was found to be in V. fib. Upon arrival in the emergency department, he was febrile to temperature 102.6, hypertensive and blood sugar was found to be 211. He was initially placed on CPAP in the ED, and then was intubated. Principal Diagnosis Septic shock Discharge Exam Constitutional WD/WN, vitals as above + acute distress, + frail appearing and + in distress Eyes EOM intact bilaterally; no conjunctival abnormality ENMT external ear and nose normal, oropharynx normal Neck trachea midline, no thyromegaly normal visual inspection Respiratory + respiratory distress, + uses accessory muscles and + tachypneic Auscultation: + diminished lung sounds, + rales and + rhonchi Cardiovascular Rate/Rhythm: regular rhythm and + tachycardic Gastrointestinal (Abdomen) Inspection/Auscultation: abdomen normal to inspection; abdomen not distended Musculoskeletal no cyanosis or clubbing, extremities motor strength 5/5 Skin no rashes, warm and dry Neurologic moves all extremities Psychiatric Orientation: + not alert and + not oriented x 3 Discharge Data Allergies Allergy/AdvReac Type Severity Reaction Status Date / Time No Known Allergies Allergy Verified 11/26/18 19:06 Consultations 11/26/18 19:27 ED Decision to Admit Stat 11/26/18 19:51 Consult Gas Meter Reader Stat 11/26/18 22:05 Consult Gas Meter Reader Routine Ordered Studies 11/26/18 19:10 CT abd pelvis wo con Stat CT chest wo con Stat CT head/brain wo con Stat 11/26/18 21:43 point of care ultrasound Urgent Hospital Course (1) Septic shock: Terminally extubated and due to septic shock from bacteremia. Total Time Total Time Spent Total Time Spent (In Minutes): 35 Discharge Plan Discharge Items Patient Disposition: Admission Data Admit Date/Time: 11/26/18 20:43 Attending Provider: Carlos Manuel Dougherty Admit Provider: Darren Gomez Primary Care Provider: Carl Lucero Other Providers: Shayan Murphy ; Carlos Manuel Dougherty Service: Intensive Care Unit Other DC Date/Time DO NOT enter until pt leaves facility: 11/27/18 19:00
[2018-11-29] MEDS ORDERED: VANCOMYCIN TROUGH ONE (11:30)
--- NOTE | 2018-12-01 13:38 | Coding Query ---
PATHOLOGY To promote full compliance with coding requirements relating to patient care, physician participation is requested in all cases of rn call center uncertainty. Please assist us with the question(s) below: Please review the blood culture results and please document any relevant diagnosis(es) below: Diagnosis(es): Bacteremia from Klebsiella pneumoniae & Enterococcus faecalis Thank you Sunita LLAMAS
== END 2018-11-27 19:00 | disposition expired | DRG 871 ==
LOC: ED 18:12 → 1E 20:43 → SUATTDRO 20:43 → 1E 21:35